=== PATIENT | male | born 1930 | race Caucasian/White ===

== ENCOUNTER 2017-02-09 03:33 | Inpatient (IN) | payer MEDICARE, BC ==
[~2017-02-09] VITALS: Ht 162.6 cm; Wt 711.2 kg
[2017-02-09] VITALS (13 sets, daily range): BP systolic 97–145; BP diastolic 30–76
[~2017-02-09 03:33] MED LIST: ACET500T55 PO; ACET500T68 PO; FLUT9.9S NS; FOLI1TAB6 PO; FURO80TA3 PO; FURO80TA72 PO; LOPE2CAP PO; OMEG1CAP6 PO; OXYC10TA PO; OXYC20TA34 PO; OXYC5TAB PO; OXYM30MI NS; PANT40GR PO; POTA20TA4 PO; SIMV20TA3 PO; SPIR25TA3 PO; TETR15DR14 OP
[2017-02-09] MEDS ORDERED: IV NORMAL SALINE 500ML BAG 500 ML IV ONE (03:45)
[2017-02-09] MEDS ORDERED: PANTOPRAZOLE IV PUSH 40 MG VIAL. IVP ONE (04:00)
[2017-02-09 04:04] LABS: NEG OBC FOB NEG; POS OBC FOB POS
--- NOTE | 2017-02-09 04:23 | PHYS DOC ---
Past Medical History Past Medical History: A-Fib, Arthritis, Hypertension, Other Additional Past Medical Histor: CHRONIC BACK PAIN, GI bleed Past Surgical History: Other Additional Past Surgical Histo: BACK SURGERY Alcohol Use: None Drug Use: None Adult General Chief Complaint Chief Complaint: SYNCOPE HPI HPI Patient is a 86 year old male who presents by EMS from nursing facility for syncope. He notes getting out of bed to have a BM and passing out. Staff helped him up and noted he had a black stool. He feels slight fatigue, but otherwise has no complaints. He denies chest pain, dyspnea, fever or chills, nausea or vomiting, abdominal pain, pain with eating. States he has had prior GI bleeds. Review of Systems Review of Systems Constitutional: Denies fever or chills [] Eyes: Denies change in visual acuity, redness, or eye pain [] HENT: Denies nasal congestion or sore throat [] Respiratory: Denies cough or shortness of breath [] Cardiovascular: No additional information not addressed in HPI [] GI: Denies abdominal pain, nausea, vomiting [] : Denies dysuria or hematuria [] Musculoskeletal: Denies back pain or joint pain [] Integument: Denies rash or skin lesions [] Neurologic: Denies headache, focal weakness or sensory changes [] Endocrine: Denies polyuria or polydipsia [] Current Medications Current Medications Current Medications Medications (Trade) Dose Ordered Sig/Azalia Start Time Stop Time Status Last Admin Dose Admin Pantoprazole Sodium 40 mg 40 mg 1X ONCE 02/09/17 04:00 02/09/17 04:01 DC 02/09/17 03:58 40 MG Pantoprazole Sodium/Sodium Chloride (Protonix Iv/Iv Sodium Chloride 0.9% 100ml) 100 ml @ 10 mls/hr 1X ONCE 02/09/17 05:15 02/09/17 15:14 UNV Sodium Chloride 500 ml @ 500 mls/hr 1X ONCE 02/09/17 03:45 02/09/17 04:44 DC 02/09/17 03:52 500 MLS/HR Allergies Allergies Allergies Coded Allergies Type Severity Reaction Last Updated Verified No Known Drug Allergies 06/10/16 No Physical Exam Physical Exam Constitutional: Well developed, well nourished, no acute distress, non-toxic appearance. [] HENT: Normocephalic, atraumatic, bilateral external ears normal, oropharynx moist, no oral exudates, nose normal. [] Eyes: PERRLA, EOMI. [] Neck: Normal range of motion, no tenderness, supple. [] Cardiovascular:Heart rate regular rhythm [] Lungs & Thorax: Bilateral breath sounds clear to auscultation [] Abdomen: Bowel sounds normal, soft, no tenderness. Black smear on glove per rectum exam. [] Skin: Warm, dry, no erythema, no rash. [] Back: No tenderness, no CVA tenderness. [] Extremities: No tenderness, ROM intact, no edema. [] Neurologic: Alert and oriented to self and situation, normal motor function, normal sensory function, no focal deficits noted. [] Psychologic: Affect normal, judgement normal, mood normal. [] Current Patient Data Vital Signs Vital Signs Date Time Temp Pulse Resp B/P Pulse Ox O2 Delivery O2 Flow Rate FiO2 02/09/17 05:00 108 107/53 97 Room Air 02/09/17 03:36 97.7 16 97.7 Lab Values Laboratory Tests Test 02/09/17 03:50 02/09/17 04:12 Stool Occult Blood Positive (NEG) White Blood Count 18.2x10^3/uL (4.0-11.0) H Red Blood Count 4.27x10^6/uL (4.30-5.70) L Hemoglobin 8.8g/dL (13.0-17.5) L Hematocrit 30.6% (39.0-53.0) L Mean Corpuscular Volume 72fL (79-100) L Mean Corpuscular Hemoglobin 21pg (25-35) L Mean Corpuscular Hemoglobin Concent 29g/dL (31-37) L Red Cell Distribution Width 21.7% (11.5-14.5) H Platelet Count 243x10^3/uL (140-400) Neutrophils (%) (Auto) 87% (31-73) H Lymphocytes (%) (Auto) 4% (24-48) L Monocytes (%) (Auto) 9% (0-9) Eosinophils (%) (Auto) 0% (0-3) Basophils (%) (Auto) 0% (0-3) Neutrophils # (Auto) 15.8x10^3uL (1.8-7.7) H Lymphocytes # (Auto) 0.8x10^3/uL (1.0-4.8) L Monocytes # (Auto) 1.6x10^3/uL (0.0-1.1) H Eosinophils # (Auto) 0.0x10^3/uL (0.0-0.7) Basophils # (Auto) 0.0x10^3/uL (0.0-0.2) Platelet Estimate Pending Prothrombin Time 15.5SEC (11.7-14.0) H Prothrombin Time INR 1.3 (0.8-1.1) H PTT 27SEC (24-38) Sodium Level 145mmol/L (136-145) Potassium Level 3.0mmol/L (3.5-5.1) L Chloride Level 108mmol/L (98-107) H Carbon Dioxide Level 18mmol/L (21-32) L Anion Gap 19 (6-14) H Blood Urea Nitrogen 81mg/dL (8-26) H Creatinine 1.4mg/dL (0.7-1.3) H Estimated GFR (Cockcroft-Gault) 47.9 Glucose Level 144mg/dL (70-99) H Calcium Level 8.8mg/dL (8.5-10.1) Total Bilirubin 0.4mg/dL (0.2-1.0) Direct Bilirubin 0.2mg/dL (0.0-0.2) Aspartate Amino Transferase (AST) 18U/L (15-37) Alanine Aminotransferase (ALT) 16U/L (16-63) Alkaline Phosphatase 54U/L (46-116) Total Protein 6.6g/dL (6.4-8.2) Albumin 3.3g/dL (3.4-5.0) L Laboratory Tests 02/09/17 04:12 Laboratory Tests 02/09/17 04:12 EKG EKG EKG as interpreted by me as sinus tachycardia, rate 112, no ST-T changes, normal intervals, no ectopy Radiology/Procedures Radiology/Procedures Chest xray as interpreted by me with no acute cardiopulmonary disease process Course & Med Decision Making Course & Med Decision Making Pertinent Labs and Imaging studies reviewed. (See chart for details) Workup shows drop in hgb from baseline associated with mild DESTINY and hypokalemia. Discussed case with Dr. Manuel, secondary school teacher librarian for Dr. Cedillo, who recommends admit to ICU with PPI drip and GI consultation. GI consult placed. Potassium IVFs ordered for maintenance and replacement. Dragon Disclaimer Dragon Disclaimer This electronic medical record was generated, in whole or in part, using a voice recognition dictation system. Departure Departure Impression: Primary Impression: GI bleed Additional Impressions: Syncope Peptic ulcer disease Acute renal failure Hypokalemia Disposition: ADMITTED INPATIENT Condition: STABLE Referrals: KASANDRA CEDILLO MD (PCP) Problem Qualifiers Primary Impression: GI bleed GI bleed type/associated pathology: unspecified gastrointestinal hemorrhage type Qualified Code: K92.2 - Gastrointestinal hemorrhage, unspecified Additional Impressions: Syncope Syncope type: unspecified Qualified Code: R55 - Syncope and collapse Pennie HICKEY MD Feb 09, 2017 04:23
[2017-02-09 04:49] LABS: BASO % 0 % (0-3); EOS % 0 % (0-3); HEMATOCRIT 30.6 % (39.0-53.0); HEMOGLOBIN 8.8 g/dL (13.0-17.5); LYMPH # 0.8 x10^3/uL (1.0-4.8); LYMPH % 4 % (24-48); MEAN CORPUSCULAR HEMOGLOBIN 21 pg (25-35); MEAN CORPUSCULAR HGB CONC 29 g/dL (31-37); MEAN CORPUSCULAR VOLUME 72 fL (79-100); MONO % 9 % (0-9); NEUT % 87 % (31-73); PLATELET COUNT 243 x10^3/uL (140-400); RED BLOOD COUNT 4.27 x10^6/uL (4.30-5.70); RED CELL DISTRIBUTION WIDTH 21.7 % (11.5-14.5); WHITE BLOOD COUNT 18.2 x10^3/uL (4.0-11.0)
[2017-02-09 05:00] LABS: INR 1.3 (0.8-1.1); PROTHROMBIN TIME PATIENT 15.5 SEC (11.7-14.0)
[2017-02-09 05:08] LABS: CALCIUM 8.8 mg/dL (8.5-10.1); CREATININE 1.4 mg/dL (0.7-1.3); GFR 47.9
[2017-02-09 05:11] LABS: ALBUMIN 3.3 g/dL (3.4-5.0); DIRECT BILIRUBIN 0.2 mg/dL (0.0-0.2); TOTAL BILIRUBIN 0.4 mg/dL (0.2-1.0); TOTAL PROTEIN 6.6 g/dL (6.4-8.2)
--- NOTE | 2017-02-09 05:42 | ACF ---
Admit Criteria Forms Admit Criteria Forms Admit Criteria Forms GASTROINTESTINAL BLEEDING, LOWER Clinical Indications for Admission to Inpatient Care ( Place 'X' for any and all applicable criteria): Admission is indicated for ANY ONE of the following(1)(2)(3)(4)(5): [X]I. Active gross bleeding per rectum [ ]II. Inpatient admission required rather than observation care (Also use Gastrointestinal Bleeding, Lower: Observation Care as appropriate) because of ANY ONE of the following: [ ]a) Hemodynamic instability that is severe or persistent [ ]b) Anemia requiring inpatient admission as indicated by ALL of the following: [ ]1) Presence of significant clinical finding indicated by ANY ONE of the following: [ ]A. Tachycardia for age [ ]B. Orthostatic vital sign changes [ ]C. Cognitive impairment [ ]D. Heart failure [ ]E. Chest pain [ ]F. Exertional dyspnea [ ]G. Other findings suggesting inadequate perfusion (eg, peripheral or myocardial ischemia, end organ dysfunction) [ ]2) Initial (eg, emergency department, observation care) treatment with transfusion or volume replacement is judged inappropriate (due to severity of the finding) or has been ineffective [ ]c) Severe pain requiring acute inpatient management [ ]d) Absent bowel sounds with complete ileus [ ]e) Signs of intestinal obstruction or peritonitis [A] [ ]f) High-risk low platelet count [ ]g) Severe electrolyte abnormalities requiring inpatient care [ ]h) Acute renal failure [ ]i) High fever or infection requiring inpatient admission as indicated by ANY ONE of the following(8)(9): [ ]1) Appropriate outpatient or observation care antimicrobial treatment unavailable, not effective, or not feasible Documented bacteremia [ ]2) Documented bacteremia [ ]3) Temperature greater than 104.9 degrees F ( 40.5 degrees C) (oral) [ ]4) Temperature greater than 103.1 degrees F ( 39.5 degrees C) (oral) or less than 96.8 degrees F (36 degrees C) (rectal) that does not respond to all emergency treatment measures [ ]j) IV fluid to replace significant ongoing losses ( greater than 3 L/m2 per day) [ ]k) Immediate inpatient surgery needed [ ]l) Parenteral nutrition regimen that must be implemented on inpatient basis [ ]m) Other condition, treatment or monitoring requiring inpatient admission [ ]III. Unstable comorbid illness (renal, hepatic, pulmonary, hematologic, neurologic, or cardiac) [ ]IV. Failure to control bleeding after colonoscopy [ ]V. Coagulopathy [ ]. Suspected or known ischemic colitis(6) [ ]VII. Previous aortic graft placement or known aortic aneurysm Extended stay beyond goal length of stay may be needed for(3)(4)(28): [ ]a) Emergency surgery [ ]b) Coagulation abnormalities(26) [ ]c) Recurrent or persistent bleeding, continued vital sign instability(27)( 28) [ ]d) Active comorbidities (eg, renal insufficiency, heart failure, pre- existing liver disease) The original [employer] content created by [employer] has been revised. The portions of the content which have been revised are identified through the use of italic text or in bold, and [facility] has neither reviewed nor approved the modified material. All other unmodified content is copyright [employer]. Please see references footnoted in the original [employer] edition 2016 NAIF VASQUEZ Feb 09, 2017 05:42
[2017-02-09] MEDS ORDERED: ONDANSETRON PF 4 MG/2 ML VIAL. IV PRN (05:45)
[2017-02-09] MEDS ORDERED: PANTOPRAZOLE SODIUM IV 80 MG in IV NORMAL SALINE 100ML 100 ML IV ONE (05:45)
[2017-02-09] MEDS ORDERED: POTASSIUM CL 20MEQ D5-0.9%NACL 1,000 ML IV ONE (05:45)
[2017-02-09] MEDS ORDERED: ACETAMINOPHEN 325 MG TABLET. PO PRN (05:45)
[2017-02-09] MEDS ORDERED: fentaNYL PF VIAL 100 MCG/2 ML VIAL IV PRN ×2 (05:45→08:30)
--- NOTE | 2017-02-09 05:45 | EKG ---
[facility] [address] [place] [address] Test Date: 2017-02-09 Test Time: 03:38:58 Pat Name: TAL ALICEA Department: Room: 109 1 Gender: M Home Day Care Provider: : [id number] Requested By: Pennie HICKEY Order Number: [id number] Reading MD: Toro Grey Measurements Intervals [place] Rate: 112 P: -107 IA: 102 QRS: -33 QRSD: 82 T: 58 QT: 332 QTc: 455 Interpretive Statements SINUS TACHYCARDIA NON-SPECIFIC ST/T CHANGES Electronically Signed On 02-10-2017 8:19:34 CDT by Toro Grey
--- NOTE | 2017-02-09 07:15 | RAD ---
Portable chest, 02/09/2017: History: Syncope Comparison is made to a study from 06/04/2016. The heart size and pulmonary vascularity are normal. No pulmonary infiltrates are seen. There is no evidence of pleural fluid. IMPRESSION: No acute cardiopulmonary abnormality is detected.
[2017-02-09] MEDS ORDERED: POTASSIUM CHLORIDE 10MEQ 100 ML IV SCH ×2 (09:00→10:29)
[2017-02-09] MEDS ORDERED: POTASSIUM CHLORIDE 20MEQ 50 ML IV PRN ×2 (09:00)
[2017-02-09] MEDS ORDERED: MAGNESIUM SULFATE 2GM 50 ML IV PRN ×2 (09:00)
--- NOTE | 2017-02-09 09:03 | PDOC2 ---
CONSULT Date of Consult Date of Consult DATE: 02/09/17 TIME: 08:53 Reason for Consult Reason for Consult: DESTINY and elyte ABN Referring Physician Referring Physician: Dr Lobo Nuñez Identification/Chief Complaint Chief Complaint syncope Problems: Source Source: Chart review, Patient History of Present Illness Reason for Visit: as dictated Past Medical History Cardiovascular: HTN, Hyperlipidemia, Pulmonary hypertension, Other GI: GERD Heme/Onc: Anemia NOS Musculoskeletal: low back pain, Other Renal/: Urinary Incontinence Past Surgical History Past Surgical History: Other Social History ALCOHOL: none Drugs: None Lives: Roommate Current Problem List Problem List Problems Medical Problems: (1) Acute renal failure Status: Acute (2) GI bleed Status: Acute (3) Hypokalemia Status: Acute (4) Peptic ulcer disease Status: Acute (5) Syncope Status: Acute Current Medications Current Medications Current Medications Pantoprazole Sodium 40 mg 40 mg 1X ONCE IVP Last administered on 02/09/17 03: 58; Start 02/09/17 at 04:00; Stop 02/09/17 at 04:01; Status DC Sodium Chloride 500 ml @ 500 mls/hr 1X ONCE IV Last administered on 03:52; Start 02/09/17 at 03:45; Stop 02/09/17 at 04:44; Status DC Pantoprazole Sodium/Sodium Chloride (Protonix Iv/Iv Sodium Chloride 0.9% 100ml) 100 ml @ 10 mls/hr 1X ONCE IV Last administered on 02/09/17 05:53; Start at 05:45; Stop 02/09/17 at 15:44 Ondansetron HCl (Zofran) 4 mg PRN Q8HRS PRN IV NAUSEA/VOMITING; Start 02/09/17 at 05:45; Stop 02/10/17 at 05:44 Fentanyl Citrate (Fentanyl 2ml Vial) 50 mcg PRN Q2HR PRN IV PAIN; Start at 05:45; Stop 02/10/17 at 05:44 Acetaminophen 650 mg 650 mg PRN Q4HRS PRN PO FEVER; Start 02/09/17 at 05:45; Stop 02/10/17 at 05:44 Potassium Chloride/Dextrose/ Sod Cl 1,000 ml @ 75 mls/hr 1X ONCE IV Last administered on 02/09/17 05:42; Start 02/09/17 at 05:45; Stop 02/09/17 at 08:42 ; Status DC Potassium Chloride/Sodium Chloride (KCl 20 Meq-NS 1,000 ml Iv Soln) 1,000 ml @ 125 mls/hr Q8H IV ; Start 02/09/17 at 09:00 Fentanyl Citrate 50 mcg 50 mcg PRN Q2HR PRN IV PAIN; Start 02/09/17 at 08:30 Potassium Chloride (KCl Premix 10meq) 100 ml @ 100 mls/hr Q1H IV ; Start at 09:00; Stop 02/09/17 at 12:59 Active Scripts Active Mapap (Acetaminophen) 500 Mg Tablet 500 Mg PO PRN Q6HRS PRN Loperamide (Loperamide Hcl) 2 Mg Capsule 2 Mg PO PRN Q15MIN PRN Protonix (Pantoprazole Sodium) 40 Mg Granpkt.dr 40 Mg PO DAILY Reported Flonase Allergy Relief (Fluticasone Propionate) 9.9 Ml [place].susp 2 Sprays NS DAILY Simvastatin 20 Mg Tablet 1 Tab PO QHS Spironolactone 25 Mg Tablet 1 Tab PO DAILY Klor-Con M20 (Potassium Chloride) 20 Meq Tab.er.prt 1 Tab PO BID Fish Oil 1,000 Mg Capsule (Senath-3 Fatty Acids/Fish Oil) 1 Each Capsule 1 Each PO DAILY Centrum Multivitamin Tab Chew (Folic Acid/Mv,Fe,Other Min) 1 Each Tab.chew 1 Each PO DAILY Oxycontin (Oxycodone HCl) 20 Mg Tab.er.12h 1 Tab PO Q12HR Allergies Allergies: Coded Allergies: No Known Drug Allergies (Unverified , 06/10/16) ROS Review of System GEN: no Fevers no Chills + Gen weakness, faituge and orthostasis EYES: no new Visual Complaints ENT: no EN Drainage no Hearing deficiets CVS: n Orthopnea no CP RESP: no SOB no CASTRO GI: no Nausea no Vomiting + Diarrhea : no Dysuria occ Urgency with incontinence HEME: no easy bruising no Palp Ly Nodes NEURO no Focal Weakness no Sz ? Syncope PSYCH: no Suicidal Ideation no Depression SKIN: no Rashes ENDO: no Polyuria or Polydipsia no Hot/Cold Intolerance MU SK: ch Arthraigia no Myalgia Physical Exam Physical Exam General Appearance: Awake Alert Oriented x 3 In no Distress Eyes: VIsion Unchanged Conjunctiva Normal EN: No EN Drainage Mucous Memb. dry Neck: no JVD min JVP Supple no Thyromegaly CVS: S1 S2 ? soft Murmur No Gallop No Rub no Edema - tachy Resp: no Rales no Rhonchi no Acc. Muscle use GI: BAS +ve NO Bruit Non Tender Non Distended : no CVA tenderness; no Suprapubic Tenderness SKIN: no visible Rashes Breast Exam deferred Mu.Sk: Adequate ROM min Muscle Atrophy Heme: Unable to palpate Obvious LAD no palp Splenomegaly NEURO: Good Strength and Tone Cranial Nerves II - XII grossly intact Psych: appears Depressed no Active hallucination Vital Signs Vital Signs Date Time Temp Pulse Resp B/P Pulse Ox O2 Delivery O2 Flow Rate FiO2 02/09/17 07:00 97.3 110 18 107/59 99 Room Air 97.3 Assessment & Plan DESTINY - suspect VMN from possible GI bleed and ongoing diarrhea. IVF as ordered. Current FLuid and E-lyte status does not necessitate emergent need for Dialysis. Will re-evaluate for Dialysis in am Low K - IVF with KCL and K sliding scale; check and correct mag if needed Vol dpeltion due to diarrhe a- IVF as ordered WAG MA - IVF with Bicarb for now, check Lactate (Ketones NA here) ^ed BUN / Creat - ? due to Upper GI BLeed vs all due to diarrhea Microcytic Anemia: defer to GI to eval for blood loss HTN: Current BP meds reviewed. See orders for changes. incontinence - check PVR with bl scan Syncope with Orthostasis - now recent pred use so suspect due to vol depeliton Discussed Plan of Care and prognosis etc. at length with pt Labs Labs Laboratory Tests Test 02/09/17 03:50 02/09/17 04:12 Stool Occult Blood Positive (NEG) White Blood Count 18.2x10^3/uL (4.0-11.0) Red Blood Count 4.27x10^6/uL (4.30-5.70) Hemoglobin 8.8g/dL (13.0-17.5) Hematocrit 30.6% (39.0-53.0) Mean Corpuscular Volume 72fL (79-100) Mean Corpuscular Hemoglobin 21pg (25-35) Mean Corpuscular Hemoglobin Concent 29g/dL (31-37) Red Cell Distribution Width 21.7% (11.5-14.5) Platelet Count 243x10^3/uL (140-400) Neutrophils (%) (Auto) 87% (31-73) Lymphocytes (%) (Auto) 4% (24-48) Monocytes (%) (Auto) 9% (0-9) Eosinophils (%) (Auto) 0% (0-3) Basophils (%) (Auto) 0% (0-3) Neutrophils # (Auto) 15.8x10^3uL (1.8-7.7) Lymphocytes # (Auto) 0.8x10^3/uL (1.0-4.8) Monocytes # (Auto) 1.6x10^3/uL (0.0-1.1) Eosinophils # (Auto) 0.0x10^3/uL (0.0-0.7) Basophils # (Auto) 0.0x10^3/uL (0.0-0.2) Prothrombin Time 15.5SEC (11.7-14.0) Prothromb Time International Ratio 1.3 (0.8-1.1) Activated Partial Thromboplast Time 27SEC (24-38) Sodium Level 145mmol/L (136-145) Potassium Level 3.0mmol/L (3.5-5.1) Chloride Level 108mmol/L (98-107) Carbon Dioxide Level 18mmol/L (21-32) Anion Gap 19 (6-14) Blood Urea Nitrogen 81mg/dL (8-26) Creatinine 1.4mg/dL (0.7-1.3) Estimated GFR (Cockcroft-Gault) 47.9 Glucose Level 144mg/dL (70-99) Calcium Level 8.8mg/dL (8.5-10.1) Total Bilirubin 0.4mg/dL (0.2-1.0) Direct Bilirubin 0.2mg/dL (0.0-0.2) Aspartate Amino Transf (AST/SGOT) 18U/L (15-37) Alanine Aminotransferase (ALT/SGPT) 16U/L (16-63) Alkaline Phosphatase 54U/L (46-116) Total Protein 6.6g/dL (6.4-8.2) Albumin 3.3g/dL (3.4-5.0) Laboratory Tests Test 02/09/17 03:50 02/09/17 04:12 Stool Occult Blood Positive (NEG) White Blood Count 18.2x10^3/uL (4.0-11.0) Red Blood Count 4.27x10^6/uL (4.30-5.70) Hemoglobin 8.8g/dL (13.0-17.5) Hematocrit 30.6% (39.0-53.0) Mean Corpuscular Volume 72fL (79-100) Mean Corpuscular Hemoglobin 21pg (25-35) Mean Corpuscular Hemoglobin Concent 29g/dL (31-37) Red Cell Distribution Width 21.7% (11.5-14.5) Platelet Count 243x10^3/uL (140-400) Neutrophils (%) (Auto) 87% (31-73) Lymphocytes (%) (Auto) 4% (24-48) Monocytes (%) (Auto) 9% (0-9) Eosinophils (%) (Auto) 0% (0-3) Basophils (%) (Auto) 0% (0-3) Neutrophils # (Auto) 15.8x10^3uL (1.8-7.7) Lymphocytes # (Auto) 0.8x10^3/uL (1.0-4.8) Monocytes # (Auto) 1.6x10^3/uL (0.0-1.1) Eosinophils # (Auto) 0.0x10^3/uL (0.0-0.7) Basophils # (Auto) 0.0x10^3/uL (0.0-0.2) Prothrombin Time 15.5SEC (11.7-14.0) Prothromb Time International Ratio 1.3 (0.8-1.1) Activated Partial Thromboplast Time 27SEC (24-38) Sodium Level 145mmol/L (136-145) Potassium Level 3.0mmol/L (3.5-5.1) Chloride Level 108mmol/L (98-107) Carbon Dioxide Level 18mmol/L (21-32) Anion Gap 19 (6-14) Blood Urea Nitrogen 81mg/dL (8-26) Creatinine 1.4mg/dL (0.7-1.3) Estimated GFR (Cockcroft-Gault) 47.9 Glucose Level 144mg/dL (70-99) Calcium Level 8.8mg/dL (8.5-10.1) Total Bilirubin 0.4mg/dL (0.2-1.0) Direct Bilirubin 0.2mg/dL (0.0-0.2) Aspartate Amino Transf (AST/SGOT) 18U/L (15-37) Alanine Aminotransferase (ALT/SGPT) 16U/L (16-63) Alkaline Phosphatase 54U/L (46-116) Total Protein 6.6g/dL (6.4-8.2) Albumin 3.3g/dL (3.4-5.0) ADELA NAZARIO MD Feb 09, 2017 09:03
[2017-02-09 09:15] LABS: PLT ESTIMATE ADEQUATE (ADEQUATE)
[2017-02-09 09:16] LABS: ANISOCYTOSIS PRESENT; HYPOCHROMIA PRESENT; MICROCYTOSIS PRESENT; POIKILOCYTOSIS PRESENT; POLYCHROMASIA PRESENT; SCHISTOCYTES MANY
--- NOTE | 2017-02-09 09:34 | PDOC2 ---
GI CONSULT Reason For Consult: Upper GI Bleed HPI: HPI: 86 y/o male known to Dr. Brock, previously seen for diarrhea. EGD and colonoscopy 05/2016: severe reflux (no Valles's), hiatal hernia, normal stomach (no H. 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 On this occasion, brought to ER from nursing facility for syncope after having a bowel movement. Staff apparently noted black stool, pt confirms this. Again reports diarrhea, unclear frequency, says it's slowing down now. Per RN, no stools since admission. Denies n/v, abd pain, reflux/heartburn, weight loss, decreased appetite, hematochezia. Labs significant for WBC 18.2, Hgb 8.8 w/ low indices and elevated RDW, BUN 81, Cr 1.4, K+ 3, and hemoccult positive stool. Home meds include PPI and loperamide, he denies NSAID use. NPO on PPI drip in ICU. Some tachycardia, a bit hypotensive. By comparison, Hgb has been 11-12 range previously w/ normal BUN/Cr. PMH: PMH: per chart - GERD, diarrhea, diverticulosis, hemorrhoids, cholelithiasis, HLD, HTN, pulmonary hypertension, DVT RLE, varicose veins, anemia, low back pain, allergic rhinitis, urinary incontinence, DDD, lumbar laminectomy w/ fusion, skin cancer FH: Family History: No pertinent hx Social History: ALCOHOL: none Drugs: None ROS: GEN: Denies fevers, chills, sweats HEENT: Denies blurred vision, sore throat CV: Denies chest pain RESP: Denies shortness of air, cough GI: Per HPI : Denies hematuria, dysuria ENDO: Denies weight changes NEURO: +dizziness MSK: Denies weakness, joint pain/swelling SKIN: Denies jaundice, pruritus VItals: Vitals: Vital Signs Date Time Temp Pulse Resp B/P Pulse Ox O2 Delivery O2 Flow Rate FiO2 02/09/17 07:00 97.3 110 18 107/59 99 Room Air 97.3 Labs: Labs: Laboratory Tests Test 02/09/17 03:50 02/09/17 04:12 Stool Occult Blood Positive (NEG) White Blood Count 18.2x10^3/uL (4.0-11.0) Red Blood Count 4.27x10^6/uL (4.30-5.70) Hemoglobin 8.8g/dL (13.0-17.5) Hematocrit 30.6% (39.0-53.0) Mean Corpuscular Volume 72fL (79-100) Mean Corpuscular Hemoglobin 21pg (25-35) Mean Corpuscular Hemoglobin Concent 29g/dL (31-37) Red Cell Distribution Width 21.7% (11.5-14.5) Platelet Count 243x10^3/uL (140-400) Neutrophils (%) (Auto) 87% (31-73) Lymphocytes (%) (Auto) 4% (24-48) Monocytes (%) (Auto) 9% (0-9) Eosinophils (%) (Auto) 0% (0-3) Basophils (%) (Auto) 0% (0-3) Neutrophils # (Auto) 15.8x10^3uL (1.8-7.7) Lymphocytes # (Auto) 0.8x10^3/uL (1.0-4.8) Monocytes # (Auto) 1.6x10^3/uL (0.0-1.1) Eosinophils # (Auto) 0.0x10^3/uL (0.0-0.7) Basophils # (Auto) 0.0x10^3/uL (0.0-0.2) Segmented Neutrophils % 93% (35-66) Band Neutrophils % 4% (0-9) Lymphocytes % 1% (24-48) Monocytes % 2% (0-10) Platelet Estimate Adequate (ADEQUATE) Polychromasia Present Hypochromasia Present Poikilocytosis Present Anisocytosis Present Microcytosis Present Macrocytosis Present Schistocytes Many RBC Morphology Bizarre Forms Present Prothrombin Time 15.5SEC (11.7-14.0) Prothromb Time International Ratio 1.3 (0.8-1.1) Activated Partial Thromboplast Time 27SEC (24-38) Sodium Level 145mmol/L (136-145) Potassium Level 3.0mmol/L (3.5-5.1) Chloride Level 108mmol/L (98-107) Carbon Dioxide Level 18mmol/L (21-32) Anion Gap 19 (6-14) Blood Urea Nitrogen 81mg/dL (8-26) Creatinine 1.4mg/dL (0.7-1.3) Estimated GFR (Cockcroft-Gault) 47.9 Glucose Level 144mg/dL (70-99) Calcium Level 8.8mg/dL (8.5-10.1) Magnesium Level 2.2mg/dL (1.8-2.4) Total Bilirubin 0.4mg/dL (0.2-1.0) Direct Bilirubin 0.2mg/dL (0.0-0.2) Aspartate Amino Transf (AST/SGOT) 18U/L (15-37) Alanine Aminotransferase (ALT/SGPT) 16U/L (16-63) Alkaline Phosphatase 54U/L (46-116) Total Protein 6.6g/dL (6.4-8.2) Albumin 3.3g/dL (3.4-5.0) Allergies: Coded Allergies: No Known Drug Allergies (Unverified , 06/10/16) Medications: Current Medications Medications (Trade) Dose Ordered Sig/Azalia Route PRN Reason Start Time Stop Time Status Last Admin Dose Admin Pantoprazole Sodium 40 mg 40 mg 1X ONCE IVP 02/09/17 04:00 02/09/17 04:01 DC 02/09/17 03:58 Sodium Chloride 500 ml @ 500 mls/hr 1X ONCE IV 02/09/17 03:45 02/09/17 04:44 DC 02/09/17 03:52 Pantoprazole Sodium 80 mg/ Sodium Chloride 100 ml @ 10 mls/hr 1X ONCE IV 02/09/17 05:45 02/09/17 15:44 02/09/17 05:53 Potassium Chloride/Dextrose/ Sod Cl (KCl 20 Meq In D5W-NS) 1,000 ml @ 75 mls/hr 1X ONCE IV 02/09/17 05:45 02/09/17 08:59 DC 02/09/17 05:42 Imaging: Imaging: CXR 02/09/17 IMPRESSION: No acute cardiopulmonary abnormality is detected. PE: GEN: NAD HEENT: Atraumatic, PERRL LUNGS: clear anteriorly HEART: tachycardic ABD: NABS, S/ND/NT EXTREMITY: No edema SKIN: No rashes, no jaundice NEURO/PSYCH: A & O 3 A/P: A/P: ?syncope Microcytic anemia, hemoccult positive stool, dark stools -Hgb 8.8, previously 11-12 range; note elevated BUN -half-way staff and pt report dark stools, none as inpatient GERD -severe reflux on EGD 05/2016 -on PO PPI at nursing facility, drip here Chronic diarrhea -previous EGD and colonoscopy unrevealing for cause -on loperamide DESTINY, hypokalemia -nephrology following -- Agree w/ NPO and PPI. Recent EGD/colonoscopy as above. Will review w/ Dr. Brock. AMADOU ROSE Feb 09, 2017 09:34
[2017-02-09] MEDS ORDERED: POTASSIUM CHLORIDE 20MEQ 50 ML IV SCH (10:00)
--- NOTE | 2017-02-09 10:07 | PDOC ---
Provider Note Provider Note Patient seen. History and Physical dictated. See dictation# [id number]. KASANDRA CEDILLO MD Feb 09, 2017 10:07
[2017-02-09] MEDS: SODIUM BICARBONATE IV SCH ×2 (10:46→21:31)
[2017-02-09] MEDS: STERILE WATER IV SCH ×2 (10:46→21:31)
[2017-02-09] MEDS: POTASSIUM CHLORIDE 10MEQ 100 ML IV SCH ×8 (10:46→22:31)
--- NOTE | 2017-02-09 11:44 | HP ---
ADMIT DATE: 02/09/2017 ADMITTING PHYSICIAN: Dr. Kasandra Nuñez. REASON FOR ADMISSION: Syncope and GI bleeding. HISTORY OF PRESENT ILLNESS: This is an 86-year-old male who is a resident of an assisted living facility, was noted by the staff to have a syncopal episode. He also had a dark stool. Because of it, the patient was brought to the Emergency Room. In the Emergency Room, he was noted to have a WBC count of 18.2 and hemoglobin was lower at 8.8, potassium of 3, BUN was 81 and creatinine 1.4. When I spoke to the patient this morning, he stated that he has been having diarrhea, but denies any bleeding. He denies any nausea or vomiting. He admits to being very weak. He is not a good historian and appears to be somewhat confused and he is not at his baseline mental status at this time. Because of the anemia, GI bleeding, leukocytosis and hypokalemia, the patient has been admitted for further evaluation and management. The patient also is being treated for acute renal failure. The patient was given IV potassium in the ER and also IV Protonix. SYSTEMS REVIEW: As noted in the history of present illness, the patient is not able to give much information. He is somewhat confused. Other systems reviewed and are negative. PAST MEDICAL HISTORY: The patient was last admitted here in 05/2016. He had 2 admissions in May and at that time he was admitted for recurrent diarrhea and he had EGD that showed reflux esophagitis that was quite severe and colonoscopy that was normal other than for hemorrhoids and diverticulosis. He has a history of hypertension, arthritis, physical deconditioning, weakness, kyphosis, gastroesophageal reflux disease, hypertension, anemia, hypokalemia, and history of cardiac arrhythmias. PAST SURGICAL HISTORY: The patient has had back surgery for lumbar spinal stenosis with chronic radiculopathy. 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 MEDICATIONS: I have reviewed the medications. ALLERGIES: None known any. FAMILY HISTORY: Reviewed and noncontributory. SOCIAL HISTORY: No history of smoking, alcoholism or drug abuse. The patient lives in an assisted living facility. PHYSICAL EXAMINATION: VITAL SIGNS: Temperature 97.3, pulse 110 per minute, respirations 18 per minute, blood pressure 107/59 mmHg. GENERAL: The patient is sleepy, but wakes up. He is both acutely and chronically ill. He is somewhat confused, not in any acute distress. SKIN: Warm and dry. Skin is pale. Skin turgor decreased. EYES: Pupils reacting to light. Conjunctivae pale. Sclerae muddy. THROAT: Mild congestion of throat. NECK: JVP normal. No thyromegaly. Trachea midline. LUNGS: Decreased breath sounds at bases. CARDIOVASCULAR: S1, S2 regular. ABDOMEN: Soft, nontender, no guarding, no rigidity. Bowel sounds present. EXTREMITIES: No edema. CENTRAL NERVOUS SYSTEM: Somewhat confused, generalized weakness. Moves extremities. No acute changes noted. LABORATORY FINDINGS: Sodium 145, potassium 3, bicarbonate 18, BUN 81, creatinine 1.4, magnesium 2.2, AST 18, albumin 3.3. WBC count 18.2, hemoglobin 8.8, polys 87, platelet count is 243,000. Stool occult blood is positive. Chest x-ray did not show any infiltrates. IMPRESSION: 1. Acute gastrointestinal bleeding. 2. Acute renal failure with chronic kidney disease. 3. Hypokalemia. The patient has had history of hypokalemia. It may be worse due to diarrhea. 4. Diarrhea. Previous workup has been negative as noted earlier. 5. Leukocytosis. 6. Acute metabolic encephalopathy. 7. Osteoarthritis. 8. History of lumbar spinal stenosis with radiculopathy. 9. Hypertension. 10. History of cardiac arrhythmia. 11. Gastroesophageal reflux disease. 12. Physical deconditioning. PLAN: I will start him on IV Protonix. Consult Dr. Brock for GI evaluation and management, Dr. Beckwith for leukocytosis. Leukocytosis could be reactive. I will also get a urine test. I will give him IV fluids, normal saline with IV potassium as well as put him on potassium protocol. The patient has been admitted to intensive care unit, but if he remains stable, he may be able to move to medical monitor floor. For details, please review the orders. I have also consulted Dr. Annemarie Willis for acute renal failure. KASANDRA NUÑEZ MD DR: KAY/delbert JOB#: [id number] / [id number]
[2017-02-09] MEDS: PANTOPRAZOLE IV PUSH 40 MG VIAL. IVP SCH (21:31)
[2017-02-10] VITALS (8 sets, daily range): BP systolic 100–139; BP diastolic 48–87
--- NOTE | 2017-02-10 01:11 | CONS ---
DATE OF CONSULTATION: PRIMARY PHYSICIAN: Dr. Nuñez. REASON FOR CONSULTATION: Acute renal failure. HISTORY OF PRESENT ILLNESS: The patient is an 86-year-old gentleman from an assisted living facility. He apparently has had diarrhea for the last 3-4 days. Initially, it was all watery. He had become increasingly weak. He thinks he was urinating adequately; however, nursing staff yesterday noticed that he had dark tarry stools after having a BM and was close to passing out. It is unclear if he had total syncope. He was brought by EMS to the ER. In the ER, his blood pressures were 107/53 with heart rate of 108. He is noted to have a slight elevation in his creatinine from 0.6-1.4 with a potassium of 3, bicarbonate of 18, gap of 19 this morning. We were asked to see him for those problems. He denies NSAID use, but he is not sure of all his medications. He denies difficulty urinating or any problems with his prostate per se. His home medications do include spironolactone. He is not sure how long he has been on PPI. PAST MEDICAL HISTORY: Significant for hyperlipidemia, hypertension, chronic diarrhea, urinary incontinence with occasional urgency, arthritis, DJD of his back, skin cancers. Chronic back pain with back surgery. He also has AFib. FAMILY HISTORY: Negative for known kidney problems that the patient admits to at this time. SOCIAL HISTORY: [facility] resident. No alcohol or drug use that he admits to currently. For rest of details, see electronic records. ADELA NAZARIO MD DR: COMFORT/delbert JOB#: [id number] / [id number]
[2017-02-10 04:09] LABS: BILIRUBIN,URINE NEGATIVE (NEG); GLUCOSE,URINE NEGATIVE (NEG); NITRITE,URINE NEGATIVE (NEG); PH,URINE 5.5; PROTEIN,URINE NEGATIVE (NEG-TRACE); UROBILINOGEN,URINE 0.2 mg/dL (0.2 mg/dL)
[2017-02-10 04:15] LABS: BACTERIA,URINE 0 /HPF (0-FEW); RBC,URINE 0 /HPF (0-2); SQUAMOUS EPITHELIAL CELL,UR OCC /LPF
[2017-02-10] MEDS ORDERED: IV RINGERS,LACTATED 1000ML 1,000 ML IV SCH (07:00)
--- NOTE | 2017-02-10 07:03 | PDOC ---
Infectious Disease Note ROS ROS GEN: Denies fevers, chills, sweats HEENT: Denies blurred vision, sore throat CV: Denies chest pain RESP: Denies shortness of air, cough GI: Denies n/v/d NEURO: Denies confusion, dizziness MSK: Denies weakness, joint pain/swelling Vital Sign Vital Signs Vital Signs Date Time Temp Pulse Resp B/P Pulse Ox O2 Delivery O2 Flow Rate FiO2 02/10/17 04:00 99.2 72 16 124/52 98 Room Air 99.2 Physical Exam PHYSICAL EXAM GENERAL: NAD, Alert HEENT: PERRL, OC/OP NECK: Supple, no JVD, no LN LUNGS: Clear HEART: S1S2, no gallop, no murmur ABD: Soft, NT, no organomegaly, no rebound EXT: No edema, no cyanosis WELDING OPERATOR: Alert, oriented x 3, no focal neurologic deficit SKIN: No rash IV: ok Labs Lab Laboratory Tests Test 02/09/17 17:45 02/10/17 00:28 02/10/17 00:55 Potassium Level 3.4mmol/L (3.5-5.1) 3.7mmol/L (3.5-5.1) Urine Collection Type Unknown Urine Color Yellow Urine Clarity Clear Urine pH 5.5 Urine Specific [place] 1.025 Urine Protein Negativemg/dL (NEG-TRACE) Urine Glucose (UA) Negativemg/dL (NEG) Urine Ketones (Stick) Negativemg/dL (NEG) Urine Blood Negative (NEG) Urine Nitrite Negative (NEG) Urine Bilirubin Negative (NEG) Urine Urobilinogen Dipstick 0.2mg/dL (0.2 mg/dL) Urine Leukocyte Esterase Negative (NEG) Urine RBC 0/HPF (0-2) Urine WBC 1-4/HPF (0-4) Urine Squamous Epithelial Cells Occ/LPF Urine Bacteria 0/HPF (0-FEW) Urine Hyaline Casts Few/HPF Urine Mucus Slight/LPF Objective Assessment Leukocytosis ? reactive - SIRS GI bleed DESTINY Chronic diarrhea Plan Plan of Care Holding abx at this point as he appears comfortable/asymptomatic/non tender. 99 degree temps likely from blankets Will f/u WBC/Procalcitonin and if increasing will begin empiric abx check cults Thank you # [id number] RAMIN XIONG MD Feb 10, 2017 07:03
[2017-02-10] MEDS ORDERED: PANTOPRAZOLE IV PUSH 40 MG VIAL. IVP SCH (07:30)
[2017-02-10 07:35] LABS: BASO % 0 % (0-3); EOS % 0 % (0-3); HEMATOCRIT 21.7 % (39.0-53.0); LYMPH # 1.4 x10^3/uL (1.0-4.8); LYMPH % 14 % (24-48); MEAN CORPUSCULAR HEMOGLOBIN 22 pg (25-35); MEAN CORPUSCULAR HGB CONC 31 g/dL (31-37); MEAN CORPUSCULAR VOLUME 69 fL (79-100); MONO % 9 % (0-9); NEUT % 78 % (31-73); PLATELET COUNT 209 x10^3/uL (140-400); RED BLOOD COUNT 3.15 x10^6/uL (4.30-5.70); RED CELL DISTRIBUTION WIDTH 21.8 % (11.5-14.5); WHITE BLOOD COUNT 10.1 x10^3/uL (4.0-11.0)
[2017-02-10] MEDS: STERILE WATER IV SCH (07:39)
[2017-02-10] MEDS: SODIUM BICARBONATE IV SCH (07:39)
[2017-02-10 07:48] LABS: HEMOGLOBIN 6.8 g/dL (13.0-17.5)
[2017-02-10 07:56] LABS: ALBUMIN 2.7 g/dL (3.4-5.0); CALCIUM 8.1 mg/dL (8.5-10.1); CREATININE 0.7 mg/dL (0.7-1.3); GFR 106.7; PHOSPHORUS 2.2 mg/dL (2.6-4.7); POTASSIUM 3.1 mmol/L (3.5-5.1); TOTAL BILIRUBIN 0.3 mg/dL (0.2-1.0); TOTAL PROTEIN 5.4 g/dL (6.4-8.2)
--- NOTE | 2017-02-10 08:07 | PDOC ---
SUBJECTIVE ROS DESTINY feeling better, not further diarrhea reported CVS: no Orthopnea, no CP RESP: no SOB, no CASTRO GI: no Nausea, no Vomiting : no Dysuria, no Urgency OBJECTIVE Vital Signs Vital Signs Date Time Temp Pulse Resp B/P Pulse Ox O2 Delivery O2 Flow Rate FiO2 02/10/17 04:00 99.2 72 16 124/52 98 Room Air 99.2 I & 0 Intake and Output 02/10/17 07:00 Intake Total 3258.89 ml Output Total 1150 ml Balance 2108.89 ml Intake Oral 0 ml IV Total 3258.89 ml Output Urine Total 1150 ml PHYSICAL EXAM Physical Exam General Appearance: Awake Alert Oriented x 3 In no Distress Eyes: VIsion Unchanged Conjunctiva Normal EN: No EN Drainage Mucous Memb. dry Neck: no JVD min JVP Supple no Thyromegaly CVS: S1 S2 ? soft Murmur No Gallop No Rub no Edema - tachy Resp: no Rales no Rhonchi no Acc. Muscle use GI: BAS +ve NO Bruit ? Min Tender Non Distended : no CVA tenderness; no Suprapubic Tenderness Assessment & Plan DESTINY - suspect VMN from possible GI bleed and ongoing diarrhea. IVF as ordered. await todays labs Low K - IVF with KCL and K sliding scale; Vol depletion due to diarrhea - IVF as ordered; UO is better WAG MA - IVF with Bicarb for now, checking Lactate ^ed BUN / Creat - ? due to Upper GI BLeed vs all due to diarrhea Microcytic Anemia: defer to GI to eval for blood loss HTN: Current BP meds reviewed. See orders for changes. incontinence - check PVR with bl scan previous Syncope with Orthostasis - no recent pred use so suspect due to vol depletion COMMENT/RELEVANT DATA Meds Current Medications Medications (Trade) Dose Ordered Sig/Azalia Start Time Stop Time Status Last Admin Dose Admin Acetaminophen 650 mg 650 mg PRN Q4HRS PRN 02/09/17 05:45 02/10/17 05:44 DC Fentanyl Citrate (Fentanyl 2ml Vial) 50 mcg PRN Q2HR PRN 02/09/17 05:45 02/10/17 05:44 DC Fentanyl Citrate 50 mcg 50 mcg PRN Q2HR PRN 02/09/17 08:30 Lactated Ringer's 1,000 ml @ 50 mls/hr Q20H 02/10/17 07:00 02/10/17 18:59 Magnesium Sulfate/ Dextrose 50 ml @ 25 mls/hr PRN DAILY PRN 02/09/17 09:00 Ondansetron HCl (Zofran) 4 mg PRN Q8HRS PRN 02/09/17 05:45 02/10/17 05:44 DC Pantoprazole Sodium 40 mg 40 mg BID 02/09/17 21:00 02/09/17 21:31 40 MG Pantoprazole Sodium/Sodium Chloride (Protonix Iv/Iv Sodium Chloride 0.9% 100ml) 100 ml @ 10 mls/hr 1X ONCE 02/09/17 05:45 02/09/17 10:32 DC 02/09/17 05:53 10 MLS/HR Potassium Chloride/Dextrose/ Sod Cl 1,000 ml @ 75 mls/hr 1X ONCE 02/09/17 05:45 02/09/17 08:59 DC 02/09/17 05:42 75 MLS/HR Potassium Chloride/Sodium Chloride (KCl 20 Meq-NS 1,000 ml Iv Soln) 1,000 ml @ 125 mls/hr Q8H 02/09/17 09:00 02/09/17 09:00 DC Potassium Chloride (KCl Premix 10meq) 100 ml @ 100 mls/hr Q1H 02/09/17 18:45 02/09/17 22:44 DC 02/09/17 22:31 100 MLS/HR Sodium Bicarbonate/ Sterile Water (Water) 1,100 ml @ 100 mls/hr Q11H 02/09/17 10:15 02/10/17 07:41 DC 02/09/17 21:31 100 MLS/HR Sodium Chloride 500 ml @ 500 mls/hr 1X ONCE 02/09/17 03:45 02/09/17 04:44 DC 02/09/17 03:52 500 MLS/HR Lab Laboratory Tests Test 02/09/17 17:45 02/10/17 00:28 02/10/17 00:55 02/10/17 07:05 Potassium Level 3.4mmol/L (3.5-5.1) 3.7mmol/L (3.5-5.1) Urine Collection Type Unknown Urine Color Yellow Urine Clarity Clear Urine pH 5.5 Urine Specific [place] 1.025 Urine Protein Negativemg/dL (NEG-TRACE) Urine Glucose (UA) Negativemg/dL (NEG) Urine Ketones (Stick) Negativemg/dL (NEG) Urine Blood Negative (NEG) Urine Nitrite Negative (NEG) Urine Bilirubin Negative (NEG) Urine Urobilinogen Dipstick 0.2mg/dL (0.2 mg/dL) Urine Leukocyte Esterase Negative (NEG) Urine RBC 0/HPF (0-2) Urine WBC 1-4/HPF (0-4) Urine Squamous Epithelial Cells Occ/LPF Urine Bacteria 0/HPF (0-FEW) Urine Hyaline Casts Few/HPF Urine Mucus Slight/LPF White Blood Count 10.1x10^3/uL (4.0-11.0) Red Blood Count 3.15x10^6/uL (4.30-5.70) Hemoglobin 6.8g/dL (13.0-17.5) Hematocrit 21.7% (39.0-53.0) Mean Corpuscular Volume 69fL (79-100) Mean Corpuscular Hemoglobin 22pg (25-35) Mean Corpuscular Hemoglobin Concent 31g/dL (31-37) Red Cell Distribution Width 21.8% (11.5-14.5) Platelet Count 209x10^3/uL (140-400) Neutrophils (%) (Auto) 78% (31-73) Lymphocytes (%) (Auto) 14% (24-48) Monocytes (%) (Auto) 9% (0-9) Eosinophils (%) (Auto) 0% (0-3) Basophils (%) (Auto) 0% (0-3) Neutrophils # (Auto) 7.8x10^3uL (1.8-7.7) Lymphocytes # (Auto) 1.4x10^3/uL (1.0-4.8) Monocytes # (Auto) 0.9x10^3/uL (0.0-1.1) Eosinophils # (Auto) 0.0x10^3/uL (0.0-0.7) Basophils # (Auto) 0.0x10^3/uL (0.0-0.2) ADELA NAZARIO MD Feb 10, 2017 08:07
[2017-02-10] MEDS: POTASSIUM CHLORIDE 10MEQ 100 ML IV SCH ×4 (09:00→12:00)
--- NOTE | 2017-02-10 10:56 | PDOC ---
IM PROGRESS NOTES- Subjective Subjective No diarrhea,abdominal pain,dyspnea.still weak.Unable to do full systems review. Objective Vitals Vital Signs Date Time Temp Pulse Resp B/P Pulse Ox O2 Delivery O2 Flow Rate FiO2 02/10/17 04:00 99.2 72 16 124/52 98 Room Air 99.2 Input & Output Intake and Output 02/10/17 07:00 Intake Total 3258.89 ml Output Total 1150 ml Balance 2108.89 ml Intake Oral 0 ml IV Total 3258.89 ml Output Urine Total 1150 ml Physical Exam Physical Exam General appearance - alert,ill appearing, and in no distress Mental Status - alert, oriented to person, place, and time, affect appropriate to mood Head - normal Chest - clear to auscultation, no wheezes, rales or rhonchi, symmetric air entry Heart - S1 and S2 normal Abdomen - soft, nontender, nondistended, no masses or organomegaly Neurological - alert and oriented,weak Musculoskeletal - no muscular tenderness noted Extremities - no pedal edema Skin - warm and dry Labs Laboratory Tests Test 02/09/17 03:50 02/09/17 04:12 02/09/17 06:45 02/09/17 17:45 Stool Occult Blood Positive (NEG) White Blood Count 18.2x10^3/uL (4.0-11.0) Red Blood Count 4.27x10^6/uL (4.30-5.70) Hemoglobin 8.8g/dL (13.0-17.5) Hematocrit 30.6% (39.0-53.0) Mean Corpuscular Volume 72fL (79-100) Mean Corpuscular Hemoglobin 21pg (25-35) Mean Corpuscular Hemoglobin Concent 29g/dL (31-37) Red Cell Distribution Width 21.7% (11.5-14.5) Platelet Count 243x10^3/uL (140-400) Neutrophils (%) (Auto) 87% (31-73) Lymphocytes (%) (Auto) 4% (24-48) Monocytes (%) (Auto) 9% (0-9) Eosinophils (%) (Auto) 0% (0-3) Basophils (%) (Auto) 0% (0-3) Neutrophils # (Auto) 15.8x10^3uL (1.8-7.7) Lymphocytes # (Auto) 0.8x10^3/uL (1.0-4.8) Monocytes # (Auto) 1.6x10^3/uL (0.0-1.1) Eosinophils # (Auto) 0.0x10^3/uL (0.0-0.7) Basophils # (Auto) 0.0x10^3/uL (0.0-0.2) Segmented Neutrophils % 93% (35-66) Band Neutrophils % 4% (0-9) Lymphocytes % 1% (24-48) Monocytes % 2% (0-10) Platelet Estimate Adequate (ADEQUATE) Polychromasia Present Hypochromasia Present Poikilocytosis Present Anisocytosis Present Microcytosis Present Macrocytosis Present Schistocytes Many RBC Morphology Bizarre Forms Present Prothrombin Time 15.5SEC (11.7-14.0) Prothromb Time International Ratio 1.3 (0.8-1.1) Activated Partial Thromboplast Time 27SEC (24-38) Sodium Level 145mmol/L (136-145) Potassium Level 3.0mmol/L (3.5-5.1) 3.4mmol/L (3.5-5.1) Chloride Level 108mmol/L (98-107) Carbon Dioxide Level 18mmol/L (21-32) Anion Gap 19 (6-14) Blood Urea Nitrogen 81mg/dL (8-26) Creatinine 1.4mg/dL (0.7-1.3) Estimated GFR (Cockcroft-Gault) 47.9 Glucose Level 144mg/dL (70-99) Calcium Level 8.8mg/dL (8.5-10.1) Magnesium Level 2.2mg/dL (1.8-2.4) Total Bilirubin 0.4mg/dL (0.2-1.0) Direct Bilirubin 0.2mg/dL (0.0-0.2) Aspartate Amino Transf (AST/SGOT) 18U/L (15-37) Alanine Aminotransferase (ALT/SGPT) 16U/L (16-63) Alkaline Phosphatase 54U/L (46-116) Total Protein 6.6g/dL (6.4-8.2) Albumin 3.3g/dL (3.4-5.0) Nasal Screen MRSA (PCR) Negative (Negative) Test 02/10/17 00:28 02/10/17 00:55 02/10/17 07:05 Potassium Level 3.7mmol/L (3.5-5.1) 3.1mmol/L (3.5-5.1) Procalcitonin 0.27ng/mL (0.00-0.10) Urine Collection Type Unknown Urine Color Yellow Urine Clarity Clear Urine pH 5.5 Urine Specific [place] 1.025 Urine Protein Negativemg/dL (NEG-TRACE) Urine Glucose (UA) Negativemg/dL (NEG) Urine Ketones (Stick) Negativemg/dL (NEG) Urine Blood Negative (NEG) Urine Nitrite Negative (NEG) Urine Bilirubin Negative (NEG) Urine Urobilinogen Dipstick 0.2mg/dL (0.2 mg/dL) Urine Leukocyte Esterase Negative (NEG) Urine RBC 0/HPF (0-2) Urine WBC 1-4/HPF (0-4) Urine Squamous Epithelial Cells Occ/LPF Urine Bacteria 0/HPF (0-FEW) Urine Hyaline Casts Few/HPF Urine Mucus Slight/LPF White Blood Count 10.1x10^3/uL (4.0-11.0) Red Blood Count 3.15x10^6/uL (4.30-5.70) Hemoglobin 6.8g/dL (13.0-17.5) Hematocrit 21.7% (39.0-53.0) Mean Corpuscular Volume 69fL (79-100) Mean Corpuscular Hemoglobin 22pg (25-35) Mean Corpuscular Hemoglobin Concent 31g/dL (31-37) Red Cell Distribution Width 21.8% (11.5-14.5) Platelet Count 209x10^3/uL (140-400) Neutrophils (%) (Auto) 78% (31-73) Lymphocytes (%) (Auto) 14% (24-48) Monocytes (%) (Auto) 9% (0-9) Eosinophils (%) (Auto) 0% (0-3) Basophils (%) (Auto) 0% (0-3) Neutrophils # (Auto) 7.8x10^3uL (1.8-7.7) Lymphocytes # (Auto) 1.4x10^3/uL (1.0-4.8) Monocytes # (Auto) 0.9x10^3/uL (0.0-1.1) Eosinophils # (Auto) 0.0x10^3/uL (0.0-0.7) Basophils # (Auto) 0.0x10^3/uL (0.0-0.2) Sodium Level 143mmol/L (136-145) Chloride Level 109mmol/L (98-107) Carbon Dioxide Level 28mmol/L (21-32) Anion Gap 6 (6-14) Blood Urea Nitrogen 37mg/dL (8-26) Creatinine 0.7mg/dL (0.7-1.3) Estimated GFR (Cockcroft-Gault) 106.7 BUN/Creatinine Ratio 53 (6-20) Glucose Level 101mg/dL (70-99) Lactic Acid Level 1.4mmol/L (0.4-2.0) Calcium Level 8.1mg/dL (8.5-10.1) Phosphorus Level 2.2mg/dL (2.6-4.7) Magnesium Level 2.0mg/dL (1.8-2.4) Total Bilirubin 0.3mg/dL (0.2-1.0) Aspartate Amino Transf (AST/SGOT) 14U/L (15-37) Alanine Aminotransferase (ALT/SGPT) 13U/L (16-63) Alkaline Phosphatase 49U/L (46-116) Total Protein 5.4g/dL (6.4-8.2) Albumin 2.7g/dL (3.4-5.0) Albumin/Globulin Ratio 1.0 (1.0-1.7) Laboratory Tests Test 02/09/17 17:45 02/10/17 00:28 02/10/17 00:55 02/10/17 07:05 Potassium Level 3.4mmol/L (3.5-5.1) 3.7mmol/L (3.5-5.1) 3.1mmol/L (3.5-5.1) Procalcitonin 0.27ng/mL (0.00-0.10) Urine Collection Type Unknown Urine Color Yellow Urine Clarity Clear Urine pH 5.5 Urine Specific [place] 1.025 Urine Protein Negativemg/dL (NEG-TRACE) Urine Glucose (UA) Negativemg/dL (NEG) Urine Ketones (Stick) Negativemg/dL (NEG) Urine Blood Negative (NEG) Urine Nitrite Negative (NEG) Urine Bilirubin Negative (NEG) Urine Urobilinogen Dipstick 0.2mg/dL (0.2 mg/dL) Urine Leukocyte Esterase Negative (NEG) Urine RBC 0/HPF (0-2) Urine WBC 1-4/HPF (0-4) Urine Squamous Epithelial Cells Occ/LPF Urine Bacteria 0/HPF (0-FEW) Urine Hyaline Casts Few/HPF Urine Mucus Slight/LPF White Blood Count 10.1x10^3/uL (4.0-11.0) Red Blood Count 3.15x10^6/uL (4.30-5.70) Hemoglobin 6.8g/dL (13.0-17.5) Hematocrit 21.7% (39.0-53.0) Mean Corpuscular Volume 69fL (79-100) Mean Corpuscular Hemoglobin 22pg (25-35) Mean Corpuscular Hemoglobin Concent 31g/dL (31-37) Red Cell Distribution Width 21.8% (11.5-14.5) Platelet Count 209x10^3/uL (140-400) Neutrophils (%) (Auto) 78% (31-73) Lymphocytes (%) (Auto) 14% (24-48) Monocytes (%) (Auto) 9% (0-9) Eosinophils (%) (Auto) 0% (0-3) Basophils (%) (Auto) 0% (0-3) Neutrophils # (Auto) 7.8x10^3uL (1.8-7.7) Lymphocytes # (Auto) 1.4x10^3/uL (1.0-4.8) Monocytes # (Auto) 0.9x10^3/uL (0.0-1.1) Eosinophils # (Auto) 0.0x10^3/uL (0.0-0.7) Basophils # (Auto) 0.0x10^3/uL (0.0-0.2) Sodium Level 143mmol/L (136-145) Chloride Level 109mmol/L (98-107) Carbon Dioxide Level 28mmol/L (21-32) Anion Gap 6 (6-14) Blood Urea Nitrogen 37mg/dL (8-26) Creatinine 0.7mg/dL (0.7-1.3) Estimated GFR (Cockcroft-Gault) 106.7 BUN/Creatinine Ratio 53 (6-20) Glucose Level 101mg/dL (70-99) Lactic Acid Level 1.4mmol/L (0.4-2.0) Calcium Level 8.1mg/dL (8.5-10.1) Phosphorus Level 2.2mg/dL (2.6-4.7) Magnesium Level 2.0mg/dL (1.8-2.4) Total Bilirubin 0.3mg/dL (0.2-1.0) Aspartate Amino Transf (AST/SGOT) 14U/L (15-37) Alanine Aminotransferase (ALT/SGPT) 13U/L (16-63) Alkaline Phosphatase 49U/L (46-116) Total Protein 5.4g/dL (6.4-8.2) Albumin 2.7g/dL (3.4-5.0) Albumin/Globulin Ratio 1.0 (1.0-1.7) Meds Current Medications Lactated Ringer's 1,000 ml @ 50 mls/hr Q20H IV ; Start 02/10/17 at 07:00; Stop 02/10/17 at 18:59 Pantoprazole Sodium 40 mg 40 mg BID IVP Last administered on 02/09/17 21:31; Start 02/09/17 at 21:00 Pantoprazole Sodium 40 mg 40 mg DAILYAC IVP ; Start 02/10/17 at 07:30; Stop at 07:30; Status DC Potassium Chloride 100 ml @ 100 mls/hr Q1H IV Last administered on 02/09/17 22:31; Start 02/09/17 at 18:45; Stop 02/09/17 at 22:44; Status DC Potassium Chloride (KCl Premix 10meq) 100 ml @ 100 mls/hr Q1H IV Last administered on 02/09/17 15:02; Start 02/09/17 at 11:00; Stop 02/09/17 at 14:59 ; Status DC Potassium Chloride (KCl Premix 10meq) 100 ml @ 100 mls/hr Q1H IV ; Start at 09:00; Stop 02/10/17 at 12:59 Assessment Assessment 1. Acute gastrointestinal bleeding. 2. Acute renal failure with chronic kidney disease. 3. Hypokalemia. The patient has had history of hypokalemia. It may be worse due to diarrhea. 4. Diarrhea. Previous workup has been negative as noted earlier. 5. Leukocytosis. 6. Acute metabolic encephalopathy. 7. Osteoarthritis. 8. History of lumbar spinal stenosis with radiculopathy. 9. Hypertension. 10. History of cardiac arrhythmia. 11. Gastroesophageal reflux disease. 12. Physical deconditioning. PLAN: I will start him on IV Protonix. Consult Dr. Brock for GI evaluation and management, Dr. Beckwith for leukocytosis. Leukocytosis could be reactive. I will also get a urine test. I will give him IV fluids, normal saline with IV potassium as well as put him on potassium protocol. The patient has been admitted to intensive care unit, but if he remains stable, he may be able to move to medical monitor floor. For details, please review the orders. I have also consulted Dr. Annemarie Willis for acute renal failure. Acute blood loss anemia- also dilutional- Hb 6.8 -transfuse 2 units PRBCs. Hypokalemia- 3.1- replace. Acute renal failure- improving. Acute metabolic encephalopathy. Hypophosphatemia- replace. Leukocytosis- improving 18.1-10k,Procalcitonin 0.27 slightly elevated. Condition, treatment, options were extensively discussed with the patient and his family. Plan Plan For more details regarding further plans, please refer to the orders. KASANDRA CEDILLO MD Feb 10, 2017 10:56
[2017-02-10] MEDS: PANTOPRAZOLE IV PUSH 40 MG VIAL. IVP SCH ×2 (13:26→20:58)
[2017-02-10] MEDS: IV RINGERS,LACTATED 1000ML 1,000 ML IV SCH ×2 (14:19→22:19)
[2017-02-10] MEDS ORDERED: fentaNYL PF VIAL 100 MCG/2 ML VIAL IV PRN ×2 (14:30)
[2017-02-10] MEDS ORDERED: MIDAZOLAM HCL/PF 2 MG/2 ML VIAL. IV PRN (14:30)
[2017-02-10] MEDS ORDERED: LIDOCAINE 1% 1 ML SYRINGE. ID PRN (14:30)
[2017-02-10] MEDS ORDERED: PROPOFOL 20 ML IV ONE (15:35)
[2017-02-10] MEDS ORDERED: LIDOCAINE 2% PF Vial for OR 5 ML VIAL. ONE (15:35)
--- NOTE | 2017-02-10 15:57 | PDOC4 ---
PROCEDURE Procedure EGD Ind: melena/anemia Meds: per anesthesia. E-exudative esophagitis throughout. Multiple petechiae. G-small HH D-Normal to second portion. Camille. well. IMP: severe esophagitis, similar to last time. Was taking PPI at home?? small HH REC: clears PPI, po when eating and chronic. MAURICE ZAPATA MD Feb 10, 2017 15:57
[2017-02-10] MEDS: NORMAL SALINE IV SCH ×3 (18:08→22:13)
[2017-02-10] MEDS: POTASSIUM PHOSPHATE DIBASIC IV SCH ×3 (18:08→22:13)
[2017-02-10 21:20] LABS: HEMATOCRIT 28.3 % (39.0-53.0); HEMOGLOBIN 8.9 g/dL (13.0-17.5); RED BLOOD COUNT 3.68 x10^6/uL (4.30-5.70); RED CELL DISTRIBUTION WIDTH 26.6 % (11.5-14.5); WHITE BLOOD COUNT 6.5 x10^3/uL (4.0-11.0)
[2017-02-11 03:00] VITALS: BP 119/65
[2017-02-11 04:36] LABS: BASO % 0 % (0-3); EOS % 0 % (0-3); HEMATOCRIT 27.9 % (39.0-53.0); HEMOGLOBIN 8.7 g/dL (13.0-17.5); LYMPH # 1.1 x10^3/uL (1.0-4.8); LYMPH % 17 % (24-48); MEAN CORPUSCULAR HEMOGLOBIN 24 pg (25-35); MEAN CORPUSCULAR HGB CONC 31 g/dL (31-37); MEAN CORPUSCULAR VOLUME 77 fL (79-100); MONO % 12 % (0-9); NEUT % 70 % (31-73); PLATELET COUNT 160 x10^3/uL (140-400); RED BLOOD COUNT 3.64 x10^6/uL (4.30-5.70); RED CELL DISTRIBUTION WIDTH 26.7 % (11.5-14.5); WHITE BLOOD COUNT 6.3 x10^3/uL (4.0-11.0)
[2017-02-11 05:06] LABS: ALBUMIN 2.5 g/dL (3.4-5.0); CALCIUM 7.4 mg/dL (8.5-10.1); CREATININE 0.7 mg/dL (0.7-1.3); GFR 106.7; TOTAL BILIRUBIN 0.6 mg/dL (0.2-1.0); TOTAL PROTEIN 5.1 g/dL (6.4-8.2)
[2017-02-11 05:16] LABS: POTASSIUM 2.9 mmol/L (3.5-5.1)
[2017-02-11] MEDS: POTASSIUM CHLORIDE 10MEQ 100 ML IV SCH ×6 (05:44→22:58)
--- NOTE | 2017-02-11 06:43 | CONS ---
DATE OF CONSULTATION: 02/10/2017 PATIENT'S ROOM: ICU 9. REQUESTING PHYSICIAN: Dr. Nuñez. REASON FOR CONSULTATION: Leukocytosis. HISTORY OF PRESENT ILLNESS: The patient is an 86-year-old gentleman with a history of chronic diarrhea, who [facility]. He began to have loose stools, he states, several days ago, but then was noted by the assisted facility nursing staff to have a dark stool and also he suffered a syncopal episode. He was brought to the Emergency Room at [facility], was found to have a white blood cell count of 18.2. His hemoglobin was 8.8. His BUN was 81 and creatinine was 1.4. Potassium was 3. He was admitted emergently to the Intensive Care Unit. I was consulted secondary to leukocytosis. I did review the patient's chart yesterday and withheld any antibiotics. Currently, the patient states he is feeling better since his admission. Denied any fevers or chills or sweats prior to coming in. He has no headaches, sinus, sore throat, cough or chest pain. Denies any dysuria, frequency or urgency. He is uncertain if he actually fell or not and he denies any abdominal pain or bloating or cramps. PAST MEDICAL HISTORY: Positive for recurrent diarrhea. He has had reflux esophagitis, hypertension, arthritis, kyphosis, gastroesophageal reflux disease, hypertension, anemia, hypokalemia, cardiac arrhythmias, acute kidney injury. PAST SURGICAL HISTORY: He has had previous EGDs, colonoscopies. He has had lumbar spinal stenosis surgery and history of an aneurysm. REVIEW OF SYSTEMS: Otherwise negative except for as mentioned above. ALLERGIES: No known drug allergies. SOCIAL HISTORY: No tobacco or alcohol. Lives in assisted living. FAMILY HISTORY: Noncontributory. CURRENT MEDICATIONS: Include electrolyte replacement, pantoprazole, Tylenol. Other meds are available, have been reviewed in the chart. PHYSICAL EXAMINATION: VITAL SIGNS: T-max has been 99.4, currently 99.2, pulse 72, respirations 16, blood pressure 124/52, satting 98% on room air. CONSTITUTIONAL: He is lying in bed. He is cooperative. He is in no acute distress. Does look a little pale. HEENT: Normal conjunctivae. Pupils are equal and reactive. Oral cavity, pharynx was clear. NECK: Supple, with no JVD. LUNGS: Decreased in the bases. HEART: S1, S2. ABDOMEN: Soft, nontender, nondistended, no guarding, no rebound. EXTREMITIES: No clubbing, cyanosis. No gross edema. SKIN: Warm to touch without signs of rash. NEUROLOGIC: He moves all extremities, but is slow to respond to questions. PSYCHIATRIC: Affect was somewhat flat. LABORATORY DATA: From the time of admission as today's are not available show white count 18.2, hemoglobin 8.8, platelets of 243 with 87% neutrophils. The most recent potassium just after midnight is 3.7. His creatinine was 1.4 at the time of admission. Glucose was ____. He had normal liver function study tests. Urinalysis is clean. MRSA screen is negative. Chest x-ray, no acute pulmonary abnormality was seen. IMPRESSION: 1. Leukocytosis, questionable reactive and systemic inflammatory response syndrome. 2. Gastrointestinal bleed. 3. Acute kidney injury. 4. Chronic diarrhea. RECOMMENDATIONS: For now, we are holding antibiotics. I did review the chart yesterday. Currently, he appears comfortable, asymptomatic. He is nontender. He has 99 degree temp, is likely from a number of different blankets in place. We will follow up his white blood cell count and procalcitonin and if he is increasing, then we will begin empiric antibiotics, check cultures. Dr. Nuñez, thank you for allowing me to participate in this patient's care. If you have any questions, please do not hesitate to contact me. RAMIN XIONG MD DR: JUNIOR/delbert JOB#: [id number] / [id number]
[2017-02-11] MEDS: PANTOPRAZOLE IV PUSH 40 MG VIAL. IVP SCH (07:06)
[2017-02-11 08:00] VITALS: BP 115/59
--- NOTE | 2017-02-11 09:34 | PDOC ---
IM PROGRESS NOTES- Subjective Subjective No diarrhea,abdominal pain,dyspnea.still weak.Unable to do full systems review. Objective Vitals Vital Signs Date Time Temp Pulse Resp B/P Pulse Ox O2 Delivery O2 Flow Rate FiO2 02/11/17 08:00 98.8 99 20 115/59 98 Room Air 98.8 Input & Output Intake and Output 02/11/17 07:00 Intake Total 1850 ml Output Total 700 ml Balance 1150 ml Intake Oral 520 ml IV Total 600 ml Blood Product IV Normal Saline Flush 730 ml Output Urine Total 700 ml # Voids 1 # Bowel Movements 1 Physical Exam Physical Exam General appearance - alert,ill appearing, and in no distress Mental Status - alert, oriented to person, place, and time, affect appropriate to mood Head - normal Chest - clear to auscultation, no wheezes, rales or rhonchi, symmetric air entry Heart - S1 and S2 normal Abdomen - soft, nontender, nondistended, no masses or organomegaly Neurological - alert and oriented,weak Musculoskeletal - no muscular tenderness noted Extremities - no pedal edema Skin - warm and dry Labs Laboratory Tests Test 02/09/17 17:45 02/10/17 00:28 02/10/17 00:55 02/10/17 07:05 Potassium Level 3.4mmol/L (3.5-5.1) 3.7mmol/L (3.5-5.1) 3.1mmol/L (3.5-5.1) Procalcitonin 0.27ng/mL (0.00-0.10) Urine Collection Type Unknown Urine Color Yellow Urine Clarity Clear Urine pH 5.5 Urine Specific [place] 1.025 Urine Protein Negativemg/dL (NEG-TRACE) Urine Glucose (UA) Negativemg/dL (NEG) Urine Ketones (Stick) Negativemg/dL (NEG) Urine Blood Negative (NEG) Urine Nitrite Negative (NEG) Urine Bilirubin Negative (NEG) Urine Urobilinogen Dipstick 0.2mg/dL (0.2 mg/dL) Urine Leukocyte Esterase Negative (NEG) Urine RBC 0/HPF (0-2) Urine WBC 1-4/HPF (0-4) Urine Squamous Epithelial Cells Occ/LPF Urine Bacteria 0/HPF (0-FEW) Urine Hyaline Casts Few/HPF Urine Mucus Slight/LPF White Blood Count 10.1x10^3/uL (4.0-11.0) Red Blood Count 3.15x10^6/uL (4.30-5.70) Hemoglobin 6.8g/dL (13.0-17.5) Hematocrit 21.7% (39.0-53.0) Mean Corpuscular Volume 69fL (79-100) Mean Corpuscular Hemoglobin 22pg (25-35) Mean Corpuscular Hemoglobin Concent 31g/dL (31-37) Red Cell Distribution Width 21.8% (11.5-14.5) Platelet Count 209x10^3/uL (140-400) Neutrophils (%) (Auto) 78% (31-73) Lymphocytes (%) (Auto) 14% (24-48) Monocytes (%) (Auto) 9% (0-9) Eosinophils (%) (Auto) 0% (0-3) Basophils (%) (Auto) 0% (0-3) Neutrophils # (Auto) 7.8x10^3uL (1.8-7.7) Lymphocytes # (Auto) 1.4x10^3/uL (1.0-4.8) Monocytes # (Auto) 0.9x10^3/uL (0.0-1.1) Eosinophils # (Auto) 0.0x10^3/uL (0.0-0.7) Basophils # (Auto) 0.0x10^3/uL (0.0-0.2) Sodium Level 143mmol/L (136-145) Chloride Level 109mmol/L (98-107) Carbon Dioxide Level 28mmol/L (21-32) Anion Gap 6 (6-14) Blood Urea Nitrogen 37mg/dL (8-26) Creatinine 0.7mg/dL (0.7-1.3) Estimated GFR (Cockcroft-Gault) 106.7 BUN/Creatinine Ratio 53 (6-20) Glucose Level 101mg/dL (70-99) Lactic Acid Level 1.4mmol/L (0.4-2.0) Calcium Level 8.1mg/dL (8.5-10.1) Phosphorus Level 2.2mg/dL (2.6-4.7) Magnesium Level 2.0mg/dL (1.8-2.4) Total Bilirubin 0.3mg/dL (0.2-1.0) Aspartate Amino Transf (AST/SGOT) 14U/L (15-37) Alanine Aminotransferase (ALT/SGPT) 13U/L (16-63) Alkaline Phosphatase 49U/L (46-116) Total Protein 5.4g/dL (6.4-8.2) Albumin 2.7g/dL (3.4-5.0) Albumin/Globulin Ratio 1.0 (1.0-1.7) Test 02/10/17 19:30 02/11/17 04:00 White Blood Count 6.5x10^3/uL (4.0-11.0) 6.3x10^3/uL (4.0-11.0) Red Blood Count 3.68x10^6/uL (4.30-5.70) 3.64x10^6/uL (4.30-5.70) Hemoglobin 8.9g/dL (13.0-17.5) 8.7g/dL (13.0-17.5) Hematocrit 28.3% (39.0-53.0) 27.9% (39.0-53.0) Mean Corpuscular Volume 77fL (79-100) 77fL (79-100) Mean Corpuscular Hemoglobin 24pg (25-35) 24pg (25-35) Mean Corpuscular Hemoglobin Concent 32g/dL (31-37) 31g/dL (31-37) Red Cell Distribution Width 26.6% (11.5-14.5) 26.7% (11.5-14.5) Platelet Count 164x10^3/uL (140-400) 160x10^3/uL (140-400) Neutrophils (%) (Auto) 70% (31-73) Lymphocytes (%) (Auto) 17% (24-48) Monocytes (%) (Auto) 12% (0-9) Eosinophils (%) (Auto) 0% (0-3) Basophils (%) (Auto) 0% (0-3) Neutrophils # (Auto) 4.4x10^3uL (1.8-7.7) Lymphocytes # (Auto) 1.1x10^3/uL (1.0-4.8) Monocytes # (Auto) 0.7x10^3/uL (0.0-1.1) Eosinophils # (Auto) 0.0x10^3/uL (0.0-0.7) Basophils # (Auto) 0.0x10^3/uL (0.0-0.2) Sodium Level 146mmol/L (136-145) Potassium Level 2.9mmol/L (3.5-5.1) Chloride Level 112mmol/L (98-107) Carbon Dioxide Level 27mmol/L (21-32) Anion Gap 7 (6-14) Blood Urea Nitrogen 19mg/dL (8-26) Creatinine 0.7mg/dL (0.7-1.3) Estimated GFR (Cockcroft-Gault) 106.7 BUN/Creatinine Ratio 27 (6-20) Glucose Level 90mg/dL (70-99) Lactic Acid Level 1.0mmol/L (0.4-2.0) Calcium Level 7.4mg/dL (8.5-10.1) Phosphorus Level 3.7mg/dL (2.6-4.7) Magnesium Level 1.8mg/dL (1.8-2.4) Total Bilirubin 0.6mg/dL (0.2-1.0) Aspartate Amino Transf (AST/SGOT) 17U/L (15-37) Alanine Aminotransferase (ALT/SGPT) 17U/L (16-63) Alkaline Phosphatase 51U/L (46-116) Total Protein 5.1g/dL (6.4-8.2) Albumin 2.5g/dL (3.4-5.0) Albumin/Globulin Ratio 1.0 (1.0-1.7) Laboratory Tests Test 02/10/17 19:30 02/11/17 04:00 White Blood Count 6.5x10^3/uL (4.0-11.0) 6.3x10^3/uL (4.0-11.0) Red Blood Count 3.68x10^6/uL (4.30-5.70) 3.64x10^6/uL (4.30-5.70) Hemoglobin 8.9g/dL (13.0-17.5) 8.7g/dL (13.0-17.5) Hematocrit 28.3% (39.0-53.0) 27.9% (39.0-53.0) Mean Corpuscular Volume 77fL (79-100) 77fL (79-100) Mean Corpuscular Hemoglobin 24pg (25-35) 24pg (25-35) Mean Corpuscular Hemoglobin Concent 32g/dL (31-37) 31g/dL (31-37) Red Cell Distribution Width 26.6% (11.5-14.5) 26.7% (11.5-14.5) Platelet Count 164x10^3/uL (140-400) 160x10^3/uL (140-400) Neutrophils (%) (Auto) 70% (31-73) Lymphocytes (%) (Auto) 17% (24-48) Monocytes (%) (Auto) 12% (0-9) Eosinophils (%) (Auto) 0% (0-3) Basophils (%) (Auto) 0% (0-3) Neutrophils # (Auto) 4.4x10^3uL (1.8-7.7) Lymphocytes # (Auto) 1.1x10^3/uL (1.0-4.8) Monocytes # (Auto) 0.7x10^3/uL (0.0-1.1) Eosinophils # (Auto) 0.0x10^3/uL (0.0-0.7) Basophils # (Auto) 0.0x10^3/uL (0.0-0.2) Sodium Level 146mmol/L (136-145) Potassium Level 2.9mmol/L (3.5-5.1) Chloride Level 112mmol/L (98-107) Carbon Dioxide Level 27mmol/L (21-32) Anion Gap 7 (6-14) Blood Urea Nitrogen 19mg/dL (8-26) Creatinine 0.7mg/dL (0.7-1.3) Estimated GFR (Cockcroft-Gault) 106.7 BUN/Creatinine Ratio 27 (6-20) Glucose Level 90mg/dL (70-99) Lactic Acid Level 1.0mmol/L (0.4-2.0) Calcium Level 7.4mg/dL (8.5-10.1) Phosphorus Level 3.7mg/dL (2.6-4.7) Magnesium Level 1.8mg/dL (1.8-2.4) Total Bilirubin 0.6mg/dL (0.2-1.0) Aspartate Amino Transf (AST/SGOT) 17U/L (15-37) Alanine Aminotransferase (ALT/SGPT) 17U/L (16-63) Alkaline Phosphatase 51U/L (46-116) Total Protein 5.1g/dL (6.4-8.2) Albumin 2.5g/dL (3.4-5.0) Albumin/Globulin Ratio 1.0 (1.0-1.7) Meds Current Medications Fentanyl Citrate (Fentanyl 2ml Vial) 25 mcg PRN Q5MIN PRN IV X 2 DOSES FOR PAIN ; Start 02/10/17 at 14:30; Stop 02/11/17 at 14:29 Fentanyl Citrate 50 mcg 50 mcg PRN Q5MIN PRN IV X 2 DOSES FOR PAIN; Start 02/10 at 14:30; Stop 02/11/17 at 14:29 Lactated Ringer's (Iv Lactated Ringers) 1,000 ml @ 125 mls/hr Q8H IV ; Start at 14:19; Stop 02/11/17 at 02:18; Status DC Lidocaine HCl 2 ml 2 ml 1X PRN PRN ID IV START; Start 02/10/17 at 14:30; Stop 02/11/17 at 14:29 Lidocaine HCl 5 ml 5 ml STK-MED ONCE .ROUTE ; Start 02/10/17 at 15:35; Stop at 15:36; Status DC Midazolam HCl (Versed) 2 mg PRN 1X PRN IV PRIOR TO PROCEDURE; Start 02/10/17 at 14:30; Stop 02/11/17 at 14:29 Potassium Phosphate/Sodium Chloride (Potassium Phosphate/Iv Sodium Chloride 0.9 % 250ml) 253.0333 ml @ 126.... Q2H IV Last administered on 02/10/17 22:13; Start 02/10/17 at 14:00; Stop 02/10/17 at 19:59; Status DC Potassium Chloride (KCl Premix 10meq) 100 ml @ 100 mls/hr Q1H IV Last administered on 02/11/17 07:24; Start 02/11/17 at 06:00; Stop 02/11/17 at 09:59 Propofol (Diprivan) 20 ml @ As Directed STK-MED ONCE IV ; Start 02/10/17 at 15: 35; Stop 02/10/17 at 15:36; Status DC Assessment Assessment 1. Acute gastrointestinal bleeding. 2. Acute renal failure with chronic kidney disease. 3. Hypokalemia. The patient has had history of hypokalemia. It may be worse due to diarrhea. 4. Diarrhea. Previous workup has been negative as noted earlier. 5. Leukocytosis. 6. Acute metabolic encephalopathy. 7. Osteoarthritis. 8. History of lumbar spinal stenosis with radiculopathy. 9. Hypertension. 10. History of cardiac arrhythmia. 11. Gastroesophageal reflux disease. 12. Physical deconditioning. PLAN: I will start him on IV Protonix. Consult Dr. Brcok for GI evaluation and management, Dr. Beckwith for leukocytosis. Leukocytosis could be reactive. I will also get a urine test. I will give him IV fluids, normal saline with IV potassium as well as put him on potassium protocol. The patient has been admitted to intensive care unit, but if he remains stable, he may be able to move to medical monitor floor. For details, please review the orders. I have also consulted Dr. Annemarie Willis for acute renal failure. Acute blood loss anemia- also dilutional- Hb 6.8 -transfuse 2 units PRBCs. GI bleding- EGD- severe esophagitis.Had a dark BM.Continue clear liquids. Hypokalemia- 2.9- replace.On K protocol. Acute renal failure- improving. Acute metabolic encephalopathy slowly improving. Hypophosphatemia- replace. Leukocytosis- resolved.Procalcitonin 0.27 slightly elevated. Change IV fluids to N saline with KCL. Condition, treatment, options were extensively discussed with the patient. Plan Plan For more details regarding further plans, please refer to the orders. KASANDRA CEDILLO MD Feb 11, 2017 09:34
[2017-02-11] MEDS: POTASSIUM CL 40MEQ IN 0.9%NACL 1,000 ML IV SCH ×2 (10:25→22:59)
[2017-02-11 11:40] LABS: HEMATOCRIT 28.1 % (39.0-53.0)
--- NOTE | 2017-02-11 13:02 | PDOC ---
Subjective: Subjective: Denies bleeding. Not really hungry. Objective: Objective: Per RN - two large BMs, dark. Vital Signs: Vital Signs Date Time Temp Pulse Resp B/P Pulse Ox O2 Delivery O2 Flow Rate FiO2 02/11/17 08:00 98.8 99 20 115/59 98 Room Air 98.8 Labs: Laboratory Tests Test 02/10/17 19:30 02/11/17 04:00 02/11/17 11:00 White Blood Count 6.5x10^3/uL 6.3x10^3/uL Red Blood Count 3.68x10^6/uL 3.64x10^6/uL Hemoglobin 8.9g/dL 8.7g/dL 9.0g/dL Hematocrit 28.3% 27.9% 28.1% Mean Corpuscular Volume 77fL 77fL Mean Corpuscular Hemoglobin 24pg 24pg Mean Corpuscular Hemoglobin Concent 32g/dL 31g/dL Red Cell Distribution Width 26.6% 26.7% Platelet Count 164x10^3/uL 160x10^3/uL Neutrophils (%) (Auto) 70% Lymphocytes (%) (Auto) 17% Monocytes (%) (Auto) 12% Eosinophils (%) (Auto) 0% Basophils (%) (Auto) 0% Neutrophils # (Auto) 4.4x10^3uL Lymphocytes # (Auto) 1.1x10^3/uL Monocytes # (Auto) 0.7x10^3/uL Eosinophils # (Auto) 0.0x10^3/uL Basophils # (Auto) 0.0x10^3/uL Sodium Level 146mmol/L Potassium Level 2.9mmol/L Chloride Level 112mmol/L Carbon Dioxide Level 27mmol/L Anion Gap 7 Blood Urea Nitrogen 19mg/dL Creatinine 0.7mg/dL Estimated GFR (Cockcroft-Gault) 106.7 BUN/Creatinine Ratio 27 Glucose Level 90mg/dL Lactic Acid Level 1.0mmol/L Calcium Level 7.4mg/dL Phosphorus Level 3.7mg/dL Magnesium Level 1.8mg/dL Total Bilirubin 0.6mg/dL Aspartate Amino Transf (AST/SGOT) 17U/L Alanine Aminotransferase (ALT/SGPT) 17U/L Alkaline Phosphatase 51U/L Total Protein 5.1g/dL Albumin 2.5g/dL Albumin/Globulin Ratio 1.0 Imaging: EGD 02/11/17 E-exudative esophagitis throughout. Multiple petechiae. G-small HH D-Normal to second portion. PE: GEN: NAD, untouched tray of clears LUNGS: CTAB anteriorly HEART: RRR ABD: S/ND/NT NEURO/PSYCH: appropriate A/P: Severe esophagitis -on IV PPI BID Anemia -dark stools reported but Hgb improved -- Will review w/ Dr. Brock re: advancing diet, changing to PO PPI. AMADOU ROSE Feb 11, 2017 13:02
[2017-02-11 15:30] VITALS: BP 118/54
[2017-02-11] MEDS: PANTOPRAZOLE 40 MG TABLET.DR. PO SCH (17:42)
[2017-02-11 19:59] VITALS: BP 111/46
[2017-02-11] MEDS ORDERED: POTASSIUM CHLORIDE 10MEQ 100 ML IV PRN (21:30)
[2017-02-11 23:53] VITALS: BP 119/61
[2017-02-12 03:59] VITALS: BP 113/44
[2017-02-12 06:36] LABS: BASO % 1 % (0-3); EOS % 4 % (0-3); HEMATOCRIT 27.7 % (39.0-53.0); HEMOGLOBIN 8.9 g/dL (13.0-17.5); LYMPH # 0.1 x10^3/uL (1.0-4.8); MEAN CORPUSCULAR HEMOGLOBIN 24 pg (25-35); MEAN CORPUSCULAR HGB CONC 32 g/dL (31-37); MEAN CORPUSCULAR VOLUME 75 fL (79-100); NEUT % 69 % (31-73); PLATELET COUNT 176 x10^3/uL (140-400); RED BLOOD COUNT 3.71 x10^6/uL (4.30-5.70); RED CELL DISTRIBUTION WIDTH 26.9 % (11.5-14.5); WHITE BLOOD COUNT 5.5 x10^3/uL (4.0-11.0)
[2017-02-12 06:37] LABS: ALBUMIN 2.5 g/dL (3.4-5.0); ALBUMIN/GLOBULIN RATIO 0.9 (1.0-1.7); CALCIUM 7.4 mg/dL (8.5-10.1); CREATININE 0.7 mg/dL (0.7-1.3); GFR 106.7; LYMPH % 19 % (24-48); MONO % 10 % (0-9); TOTAL BILIRUBIN 0.5 mg/dL (0.2-1.0); TOTAL PROTEIN 5.3 g/dL (6.4-8.2)
[2017-02-12 07:00] VITALS: BP 112/60
[2017-02-12 07:13] LABS: PHOSPHORUS 2.4 mg/dL (2.6-4.7)
[2017-02-12] MEDS: PANTOPRAZOLE 40 MG TABLET.DR. PO SCH ×2 (08:29→16:32)
[2017-02-12 11:00] VITALS: BP 114/58
[2017-02-12] MEDS: POTASSIUM CHLORIDE 10MEQ 100 ML IV PRN ×4 (11:27→16:31)
--- NOTE | 2017-02-12 11:47 | PDOC ---
GI PROGRESS NOTES Date Date/Time DATE: 02/12/17 TIME: 11:43 Subjective Subjective Eating- feels better no further melena Objective Vitals Vital Signs Date Time Temp Pulse Resp B/P Pulse Ox O2 Delivery O2 Flow Rate FiO2 02/12/17 08:00 Room Air 02/12/17 07:00 97.4 72 24 112/60 98 Room Air 97.4 02/12/17 03:59 98.7 72 18 113/44 95 Room Air 98.7 02/11/17 23:53 99.4 81 18 119/61 93 Room Air 99.4 02/11/17 20:00 Room Air 02/11/17 19:59 98.3 90 18 111/46 97 Room Air 98.3 02/11/17 15:30 98.5 73 22 118/54 97 Room Air 98.5 Objective no further melena, Hgb stable eating without pain or dysphagia Labs Labs Laboratory Tests Test 02/11/17 20:20 02/12/17 05:00 Potassium Level 2.8mmol/L (3.5-5.1) 3.0mmol/L (3.5-5.1) White Blood Count 5.5x10^3/uL (4.0-11.0) Red Blood Count 3.71x10^6/uL (4.30-5.70) Hemoglobin 8.9g/dL (13.0-17.5) Hematocrit 27.7% (39.0-53.0) Mean Corpuscular Volume 75fL (79-100) Mean Corpuscular Hemoglobin 24pg (25-35) Mean Corpuscular Hemoglobin Concent 32g/dL (31-37) Red Cell Distribution Width 26.9% (11.5-14.5) Platelet Count 176x10^3/uL (140-400) Neutrophils (%) (Auto) 69% (31-73) Lymphocytes (%) (Auto) 19% (24-48) Monocytes (%) (Auto) 10% (0-9) Eosinophils (%) (Auto) 4% (0-3) Basophils (%) (Auto) 1% (0-3) Neutrophils # (Auto) 0.5x10^3uL (1.8-7.7) Lymphocytes # (Auto) 0.1x10^3/uL (1.0-4.8) Monocytes # (Auto) 0.0x10^3/uL (0.0-1.1) Sodium Level 145mmol/L (136-145) Chloride Level 113mmol/L (98-107) Carbon Dioxide Level 26mmol/L (21-32) Anion Gap 6 (6-14) Blood Urea Nitrogen 13mg/dL (8-26) Creatinine 0.7mg/dL (0.7-1.3) Estimated GFR (Cockcroft-Gault) 106.7 BUN/Creatinine Ratio 19 (6-20) Glucose Level 92mg/dL (70-99) Lactic Acid Level 1.1mmol/L (0.4-2.0) Calcium Level 7.4mg/dL (8.5-10.1) Phosphorus Level 2.4mg/dL (2.6-4.7) Magnesium Level 1.6mg/dL (1.8-2.4) Total Bilirubin 0.5mg/dL (0.2-1.0) Aspartate Amino Transf (AST/SGOT) 14U/L (15-37) Alanine Aminotransferase (ALT/SGPT) 16U/L (16-63) Alkaline Phosphatase 58U/L (46-116) Total Protein 5.3g/dL (6.4-8.2) Albumin 2.5g/dL (3.4-5.0) Albumin/Globulin Ratio 0.9 (1.0-1.7) Physical Exam Physical Exam chest-clear abd- soft nontender Assessment Assessment 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
--- NOTE | 2017-02-12 12:11 | PDOC ---
IM PROGRESS NOTES- Subjective Subjective No diarrhea,abdominal pain,dyspnea.still weak.Unable to do full systems review. Objective Vitals Vital Signs Date Time Temp Pulse Resp B/P Pulse Ox O2 Delivery O2 Flow Rate FiO2 02/12/17 08:00 Room Air 02/12/17 07:00 97.4 72 24 112/60 98 97.4 Input & Output Intake and Output 02/12/17 07:00 Intake Total 1610 ml Output Total 1520 ml Balance 90 ml Intake Oral 1610 ml Output Urine Total 1520 ml # Bowel Movements 2 Physical Exam Physical Exam General appearance - alert,ill appearing, and in no distress Mental Status - alert, oriented to person, place, and time, affect appropriate to mood Head - normal Chest - clear to auscultation, no wheezes, rales or rhonchi, symmetric air entry Heart - S1 and S2 normal Abdomen - soft, nontender, nondistended, no masses or organomegaly Neurological - alert and oriented,weak Musculoskeletal - no muscular tenderness noted Extremities - no pedal edema Skin - warm and dry Labs Laboratory Tests Test 02/10/17 19:30 02/11/17 04:00 02/11/17 11:00 02/11/17 20:20 White Blood Count 6.5x10^3/uL (4.0-11.0) 6.3x10^3/uL (4.0-11.0) Red Blood Count 3.68x10^6/uL (4.30-5.70) 3.64x10^6/uL (4.30-5.70) Hemoglobin 8.9g/dL (13.0-17.5) 8.7g/dL (13.0-17.5) 9.0g/dL (13.0-17.5) Hematocrit 28.3% (39.0-53.0) 27.9% (39.0-53.0) 28.1% (39.0-53.0) Mean Corpuscular Volume 77fL (79-100) 77fL (79-100) Mean Corpuscular Hemoglobin 24pg (25-35) 24pg (25-35) Mean Corpuscular Hemoglobin Concent 32g/dL (31-37) 31g/dL (31-37) Red Cell Distribution Width 26.6% (11.5-14.5) 26.7% (11.5-14.5) Platelet Count 164x10^3/uL (140-400) 160x10^3/uL (140-400) Neutrophils (%) (Auto) 70% (31-73) Lymphocytes (%) (Auto) 17% (24-48) Monocytes (%) (Auto) 12% (0-9) Eosinophils (%) (Auto) 0% (0-3) Basophils (%) (Auto) 0% (0-3) Neutrophils # (Auto) 4.4x10^3uL (1.8-7.7) Lymphocytes # (Auto) 1.1x10^3/uL (1.0-4.8) Monocytes # (Auto) 0.7x10^3/uL (0.0-1.1) Eosinophils # (Auto) 0.0x10^3/uL (0.0-0.7) Basophils # (Auto) 0.0x10^3/uL (0.0-0.2) Sodium Level 146mmol/L (136-145) Potassium Level 2.9mmol/L (3.5-5.1) 3.9mmol/L (3.5-5.1) 2.8mmol/L (3.5-5.1) Chloride Level 112mmol/L (98-107) Carbon Dioxide Level 27mmol/L (21-32) Anion Gap 7 (6-14) Blood Urea Nitrogen 19mg/dL (8-26) Creatinine 0.7mg/dL (0.7-1.3) Estimated GFR (Cockcroft-Gault) 106.7 BUN/Creatinine Ratio 27 (6-20) Glucose Level 90mg/dL (70-99) Lactic Acid Level 1.0mmol/L (0.4-2.0) Calcium Level 7.4mg/dL (8.5-10.1) Phosphorus Level 3.7mg/dL (2.6-4.7) Magnesium Level 1.8mg/dL (1.8-2.4) Total Bilirubin 0.6mg/dL (0.2-1.0) Aspartate Amino Transf (AST/SGOT) 17U/L (15-37) Alanine Aminotransferase (ALT/SGPT) 17U/L (16-63) Alkaline Phosphatase 51U/L (46-116) Total Protein 5.1g/dL (6.4-8.2) Albumin 2.5g/dL (3.4-5.0) Albumin/Globulin Ratio 1.0 (1.0-1.7) Test 02/12/17 05:00 White Blood Count 5.5x10^3/uL (4.0-11.0) Red Blood Count 3.71x10^6/uL (4.30-5.70) Hemoglobin 8.9g/dL (13.0-17.5) Hematocrit 27.7% (39.0-53.0) Mean Corpuscular Volume 75fL (79-100) Mean Corpuscular Hemoglobin 24pg (25-35) Mean Corpuscular Hemoglobin Concent 32g/dL (31-37) Red Cell Distribution Width 26.9% (11.5-14.5) Platelet Count 176x10^3/uL (140-400) Neutrophils (%) (Auto) 69% (31-73) Lymphocytes (%) (Auto) 19% (24-48) Monocytes (%) (Auto) 10% (0-9) Eosinophils (%) (Auto) 4% (0-3) Basophils (%) (Auto) 1% (0-3) Neutrophils # (Auto) 0.5x10^3uL (1.8-7.7) Lymphocytes # (Auto) 0.1x10^3/uL (1.0-4.8) Monocytes # (Auto) 0.0x10^3/uL (0.0-1.1) Sodium Level 145mmol/L (136-145) Potassium Level 3.0mmol/L (3.5-5.1) Chloride Level 113mmol/L (98-107) Carbon Dioxide Level 26mmol/L (21-32) Anion Gap 6 (6-14) Blood Urea Nitrogen 13mg/dL (8-26) Creatinine 0.7mg/dL (0.7-1.3) Estimated GFR (Cockcroft-Gault) 106.7 BUN/Creatinine Ratio 19 (6-20) Glucose Level 92mg/dL (70-99) Lactic Acid Level 1.1mmol/L (0.4-2.0) Calcium Level 7.4mg/dL (8.5-10.1) Phosphorus Level 2.4mg/dL (2.6-4.7) Magnesium Level 1.6mg/dL (1.8-2.4) Total Bilirubin 0.5mg/dL (0.2-1.0) Aspartate Amino Transf (AST/SGOT) 14U/L (15-37) Alanine Aminotransferase (ALT/SGPT) 16U/L (16-63) Alkaline Phosphatase 58U/L (46-116) Total Protein 5.3g/dL (6.4-8.2) Albumin 2.5g/dL (3.4-5.0) Albumin/Globulin Ratio 0.9 (1.0-1.7) Laboratory Tests Test 02/11/17 20:20 02/12/17 05:00 Potassium Level 2.8mmol/L (3.5-5.1) 3.0mmol/L (3.5-5.1) White Blood Count 5.5x10^3/uL (4.0-11.0) Red Blood Count 3.71x10^6/uL (4.30-5.70) Hemoglobin 8.9g/dL (13.0-17.5) Hematocrit 27.7% (39.0-53.0) Mean Corpuscular Volume 75fL (79-100) Mean Corpuscular Hemoglobin 24pg (25-35) Mean Corpuscular Hemoglobin Concent 32g/dL (31-37) Red Cell Distribution Width 26.9% (11.5-14.5) Platelet Count 176x10^3/uL (140-400) Neutrophils (%) (Auto) 69% (31-73) Lymphocytes (%) (Auto) 19% (24-48) Monocytes (%) (Auto) 10% (0-9) Eosinophils (%) (Auto) 4% (0-3) Basophils (%) (Auto) 1% (0-3) Neutrophils # (Auto) 0.5x10^3uL (1.8-7.7) Lymphocytes # (Auto) 0.1x10^3/uL (1.0-4.8) Monocytes # (Auto) 0.0x10^3/uL (0.0-1.1) Sodium Level 145mmol/L (136-145) Chloride Level 113mmol/L (98-107) Carbon Dioxide Level 26mmol/L (21-32) Anion Gap 6 (6-14) Blood Urea Nitrogen 13mg/dL (8-26) Creatinine 0.7mg/dL (0.7-1.3) Estimated GFR (Cockcroft-Gault) 106.7 BUN/Creatinine Ratio 19 (6-20) Glucose Level 92mg/dL (70-99) Lactic Acid Level 1.1mmol/L (0.4-2.0) Calcium Level 7.4mg/dL (8.5-10.1) Phosphorus Level 2.4mg/dL (2.6-4.7) Magnesium Level 1.6mg/dL (1.8-2.4) Total Bilirubin 0.5mg/dL (0.2-1.0) Aspartate Amino Transf (AST/SGOT) 14U/L (15-37) Alanine Aminotransferase (ALT/SGPT) 16U/L (16-63) Alkaline Phosphatase 58U/L (46-116) Total Protein 5.3g/dL (6.4-8.2) Albumin 2.5g/dL (3.4-5.0) Albumin/Globulin Ratio 0.9 (1.0-1.7) Meds Current Medications Pantoprazole Sodium 40 mg 40 mg BIDAC PO Last administered on 02/12/17 08:29; Start 02/11/17 at 16:30 Potassium Chloride 100 ml @ 100 mls/hr PRN Q1HR PRN IV K<3.7; Start 02/11/17 at 21:30 Potassium Chloride 100 ml @ 100 mls/hr Q1H IV Last administered on 02/11/17 22:58; Start 02/11/17 at 21:30; Stop 02/11/17 at 23:29; Status DC Potassium Chloride (KCl Premix 10meq) 100 ml @ 100 mls/hr PRN Q1HR PRN IV K < 3.5 Last administered on 02/12/17 11:27; Start 02/11/17 at 21:30 Assessment Assessment 1. Acute gastrointestinal bleeding. 2. Acute renal failure with chronic kidney disease. 3. Hypokalemia. The patient has had history of hypokalemia. It may be worse due to diarrhea. 4. Diarrhea. Previous workup has been negative as noted earlier. 5. Leukocytosis. 6. Acute metabolic encephalopathy. 7. Osteoarthritis. 8. History of lumbar spinal stenosis with radiculopathy. 9. Hypertension. 10. History of cardiac arrhythmia. 11. Gastroesophageal reflux disease. 12. Physical deconditioning. PLAN: I will start him on IV Protonix. Consult Dr. Brock for GI evaluation and management, Dr. Beckwith for leukocytosis. Leukocytosis could be reactive. I will also get a urine test. I will give him IV fluids, normal saline with IV potassium as well as put him on potassium protocol. The patient has been admitted to intensive care unit, but if he remains stable, he may be able to move to medical monitor floor. For details, please review the orders. I have also consulted Dr. Annemarie Willis for acute renal failure. Acute blood loss anemia- also dilutional- Hb 6.8 -transfuse 2 units PRBCs. GI bleding- EGD- severe esophagitis.Had a dark BM.Continue clear liquids. Hypokalemia- 3 replace.On K protocol.Persistent hypokalemia- but patient denies any diarrhea.May need spironolactone.He has h/o hypokalemia in past. Acute renal failure- improving. Acute metabolic encephalopathy slowly improving. Hypophosphatemia- replace. Leukocytosis- resolved.Procalcitonin 0.27 slightly elevated. Change IV fluids to N saline with KCL. Condition, treatment, options were extensively discussed with the patient. Plan Plan For more details regarding further plans, please refer to the orders. KASANDRA CEDILLO MD Feb 12, 2017 12:11
[2017-02-12] MEDS: POTASSIUM CL 40MEQ IN 0.9%NACL 1,000 ML IV SCH (12:37)
[2017-02-12 19:59] VITALS: BP 109/51
[2017-02-12 23:52] VITALS: BP 146/68
[2017-02-13 03:59] VITALS: BP 136/65
[2017-02-13] MEDS: POTASSIUM CL 40MEQ IN 0.9%NACL 1,000 ML IV SCH ×3 (04:50→18:43)
[2017-02-13 05:19] LABS: BASO % 1 % (0-3); EOS % 4 % (0-3); HEMOGLOBIN 8.9 g/dL (13.0-17.5); LYMPH # 1.1 x10^3/uL (1.0-4.8); LYMPH % 22 % (24-48); MEAN CORPUSCULAR HEMOGLOBIN 24 pg (25-35); MEAN CORPUSCULAR HGB CONC 32 g/dL (31-37); MEAN CORPUSCULAR VOLUME 76 fL (79-100); MONO % 11 % (0-9); NEUT % 62 % (31-73); PLATELET COUNT 161 x10^3/uL (140-400); RED BLOOD COUNT 3.69 x10^6/uL (4.30-5.70)
[2017-02-13 05:35] LABS: ALBUMIN 2.5 g/dL (3.4-5.0); ALBUMIN/GLOBULIN RATIO 0.8 (1.0-1.7); CALCIUM 7.8 mg/dL (8.5-10.1); CREATININE 0.6 mg/dL (0.7-1.3); GFR 127.4; POTASSIUM 3.4 mmol/L (3.5-5.1); TOTAL BILIRUBIN 0.5 mg/dL (0.2-1.0); TOTAL PROTEIN 5.5 g/dL (6.4-8.2)
[2017-02-13 07:00] VITALS: BP 112/74
[2017-02-13] MEDS: PANTOPRAZOLE 40 MG TABLET.DR. PO SCH ×2 (07:51→16:25)
[2017-02-13 11:00] VITALS: BP 115/70
[2017-02-13] MEDS ORDERED: POTASSIUM CHLORIDE 20 MEQ TABLET.ER. PO ONE (11:15)
[2017-02-13] MEDS: POTASSIUM CHLORIDE 10MEQ 100 ML IV PRN (11:59)
[2017-02-13] MEDS ORDERED: LOPERAMIDE 2 MG CAPSULE PO PRN (12:45)
--- NOTE | 2017-02-13 12:45 | PDOC ---
GI PROGRESS NOTES Date Date/Time DATE: 02/13/17 TIME: 12:41 Subjective Subjective eating no further melena and Hgb stable diarrhea this am- first in several days but had history in past - w/u 2015 was negative Objective Vitals Vital Signs Date Time Temp Pulse Resp B/P Pulse Ox O2 Delivery O2 Flow Rate FiO2 02/13/17 11:00 97.9 74 20 115/70 96 Room Air 97.9 02/13/17 07:40 Room Air 02/13/17 07:00 97.8 68 20 112/74 98 Room Air 97.8 02/13/17 03:59 98.6 80 18 136/65 95 Room Air 98.6 02/12/17 23:52 98.9 69 18 146/68 96 Room Air 98.9 02/12/17 20:00 Room Air 02/12/17 19:59 99.0 79 18 109/51 96 Room Air 99.0 Labs Labs Laboratory Tests Test 02/13/17 03:31 02/13/17 04:20 White Blood Count 5.0x10^3/uL (4.0-11.0) Red Blood Count 3.69x10^6/uL (4.30-5.70) Hemoglobin 8.9g/dL (13.0-17.5) Hematocrit 28.0% (39.0-53.0) Mean Corpuscular Volume 76fL (79-100) Mean Corpuscular Hemoglobin 24pg (25-35) Mean Corpuscular Hemoglobin Concent 32g/dL (31-37) Red Cell Distribution Width 27.0% (11.5-14.5) Platelet Count 161x10^3/uL (140-400) Neutrophils (%) (Auto) 62% (31-73) Lymphocytes (%) (Auto) 22% (24-48) Monocytes (%) (Auto) 11% (0-9) Eosinophils (%) (Auto) 4% (0-3) Basophils (%) (Auto) 1% (0-3) Neutrophils # (Auto) 3.1x10^3uL (1.8-7.7) Lymphocytes # (Auto) 1.1x10^3/uL (1.0-4.8) Monocytes # (Auto) 0.5x10^3/uL (0.0-1.1) Eosinophils # (Auto) 0.2x10^3/uL (0.0-0.7) Basophils # (Auto) 0.0x10^3/uL (0.0-0.2) Sodium Level 140mmol/L (136-145) Potassium Level 3.4mmol/L (3.5-5.1) Chloride Level 108mmol/L (98-107) Carbon Dioxide Level 24mmol/L (21-32) Anion Gap 8 (6-14) Blood Urea Nitrogen 7mg/dL (8-26) Creatinine 0.6mg/dL (0.7-1.3) Estimated GFR (Cockcroft-Gault) 127.4 BUN/Creatinine Ratio 12 (6-20) Glucose Level 90mg/dL (70-99) Lactic Acid Level 0.8mmol/L (0.4-2.0) Calcium Level 7.8mg/dL (8.5-10.1) Total Bilirubin 0.5mg/dL (0.2-1.0) Aspartate Amino Transf (AST/SGOT) 14U/L (15-37) Alanine Aminotransferase (ALT/SGPT) 14U/L (16-63) Alkaline Phosphatase 66U/L (46-116) Total Protein 5.5g/dL (6.4-8.2) Albumin 2.5g/dL (3.4-5.0) Albumin/Globulin Ratio 0.8 (1.0-1.7) Magnesium Level 1.8mg/dL (1.8-2.4) Physical Exam Physical Exam chest-clear abd- soft nontender Assessment Assessment 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
--- NOTE | 2017-02-13 12:59 | PDOC ---
IM PROGRESS NOTES- Subjective Subjective Still has diarrhea per staff. Objective Vitals Vital Signs Date Time Temp Pulse Resp B/P Pulse Ox O2 Delivery O2 Flow Rate FiO2 02/13/17 11:00 97.9 74 20 115/70 96 Room Air 97.9 Input & Output Intake and Output 02/13/17 07:00 Intake Total 1320 ml Output Total 1700 ml Balance -380 ml Intake Oral 1320 ml Output Urine Total 1700 ml # Bowel Movements 4 Physical Exam Physical Exam General appearance - alert,ill appearing, and in no distress Mental Status - alert, oriented to person, place, and time, affect appropriate to mood Head - normal Chest - clear to auscultation, no wheezes, rales or rhonchi, symmetric air entry Heart - S1 and S2 normal Abdomen - soft, nontender, nondistended, no masses or organomegaly Neurological - alert and oriented,weak Musculoskeletal - no muscular tenderness noted Extremities - no pedal edema Skin - warm and dry Labs Laboratory Tests Test 02/11/17 20:20 02/12/17 05:00 02/13/17 03:31 02/13/17 04:20 Potassium Level 2.8mmol/L (3.5-5.1) 3.0mmol/L (3.5-5.1) 3.4mmol/L (3.5-5.1) White Blood Count 5.5x10^3/uL (4.0-11.0) 5.0x10^3/uL (4.0-11.0) Red Blood Count 3.71x10^6/uL (4.30-5.70) 3.69x10^6/uL (4.30-5.70) Hemoglobin 8.9g/dL (13.0-17.5) 8.9g/dL (13.0-17.5) Hematocrit 27.7% (39.0-53.0) 28.0% (39.0-53.0) Mean Corpuscular Volume 75fL (79-100) 76fL (79-100) Mean Corpuscular Hemoglobin 24pg (25-35) 24pg (25-35) Mean Corpuscular Hemoglobin Concent 32g/dL (31-37) 32g/dL (31-37) Red Cell Distribution Width 26.9% (11.5-14.5) 27.0% (11.5-14.5) Platelet Count 176x10^3/uL (140-400) 161x10^3/uL (140-400) Neutrophils (%) (Auto) 69% (31-73) 62% (31-73) Lymphocytes (%) (Auto) 19% (24-48) 22% (24-48) Monocytes (%) (Auto) 10% (0-9) 11% (0-9) Eosinophils (%) (Auto) 4% (0-3) 4% (0-3) Basophils (%) (Auto) 1% (0-3) 1% (0-3) Neutrophils # (Auto) 0.5x10^3uL (1.8-7.7) 3.1x10^3uL (1.8-7.7) Lymphocytes # (Auto) 0.1x10^3/uL (1.0-4.8) 1.1x10^3/uL (1.0-4.8) Monocytes # (Auto) 0.0x10^3/uL (0.0-1.1) 0.5x10^3/uL (0.0-1.1) Sodium Level 145mmol/L (136-145) 140mmol/L (136-145) Chloride Level 113mmol/L (98-107) 108mmol/L (98-107) Carbon Dioxide Level 26mmol/L (21-32) 24mmol/L (21-32) Anion Gap 6 (6-14) 8 (6-14) Blood Urea Nitrogen 13mg/dL (8-26) 7mg/dL (8-26) Creatinine 0.7mg/dL (0.7-1.3) 0.6mg/dL (0.7-1.3) Estimated GFR (Cockcroft-Gault) 106.7 127.4 BUN/Creatinine Ratio 19 (6-20) 12 (6-20) Glucose Level 92mg/dL (70-99) 90mg/dL (70-99) Lactic Acid Level 1.1mmol/L (0.4-2.0) 0.8mmol/L (0.4-2.0) Calcium Level 7.4mg/dL (8.5-10.1) 7.8mg/dL (8.5-10.1) Phosphorus Level 2.4mg/dL (2.6-4.7) Magnesium Level 1.6mg/dL (1.8-2.4) 1.8mg/dL (1.8-2.4) Total Bilirubin 0.5mg/dL (0.2-1.0) 0.5mg/dL (0.2-1.0) Aspartate Amino Transf (AST/SGOT) 14U/L (15-37) 14U/L (15-37) Alanine Aminotransferase (ALT/SGPT) 16U/L (16-63) 14U/L (16-63) Alkaline Phosphatase 58U/L (46-116) 66U/L (46-116) Total Protein 5.3g/dL (6.4-8.2) 5.5g/dL (6.4-8.2) Albumin 2.5g/dL (3.4-5.0) 2.5g/dL (3.4-5.0) Albumin/Globulin Ratio 0.9 (1.0-1.7) 0.8 (1.0-1.7) Eosinophils # (Auto) 0.2x10^3/uL (0.0-0.7) Basophils # (Auto) 0.0x10^3/uL (0.0-0.2) Laboratory Tests Test 02/13/17 03:31 02/13/17 04:20 White Blood Count 5.0x10^3/uL (4.0-11.0) Red Blood Count 3.69x10^6/uL (4.30-5.70) Hemoglobin 8.9g/dL (13.0-17.5) Hematocrit 28.0% (39.0-53.0) Mean Corpuscular Volume 76fL (79-100) Mean Corpuscular Hemoglobin 24pg (25-35) Mean Corpuscular Hemoglobin Concent 32g/dL (31-37) Red Cell Distribution Width 27.0% (11.5-14.5) Platelet Count 161x10^3/uL (140-400) Neutrophils (%) (Auto) 62% (31-73) Lymphocytes (%) (Auto) 22% (24-48) Monocytes (%) (Auto) 11% (0-9) Eosinophils (%) (Auto) 4% (0-3) Basophils (%) (Auto) 1% (0-3) Neutrophils # (Auto) 3.1x10^3uL (1.8-7.7) Lymphocytes # (Auto) 1.1x10^3/uL (1.0-4.8) Monocytes # (Auto) 0.5x10^3/uL (0.0-1.1) Eosinophils # (Auto) 0.2x10^3/uL (0.0-0.7) Basophils # (Auto) 0.0x10^3/uL (0.0-0.2) Sodium Level 140mmol/L (136-145) Potassium Level 3.4mmol/L (3.5-5.1) Chloride Level 108mmol/L (98-107) Carbon Dioxide Level 24mmol/L (21-32) Anion Gap 8 (6-14) Blood Urea Nitrogen 7mg/dL (8-26) Creatinine 0.6mg/dL (0.7-1.3) Estimated GFR (Cockcroft-Gault) 127.4 BUN/Creatinine Ratio 12 (6-20) Glucose Level 90mg/dL (70-99) Lactic Acid Level 0.8mmol/L (0.4-2.0) Calcium Level 7.8mg/dL (8.5-10.1) Total Bilirubin 0.5mg/dL (0.2-1.0) Aspartate Amino Transf (AST/SGOT) 14U/L (15-37) Alanine Aminotransferase (ALT/SGPT) 14U/L (16-63) Alkaline Phosphatase 66U/L (46-116) Total Protein 5.5g/dL (6.4-8.2) Albumin 2.5g/dL (3.4-5.0) Albumin/Globulin Ratio 0.8 (1.0-1.7) Magnesium Level 1.8mg/dL (1.8-2.4) Meds Current Medications Loperamide HCl (Imodium) 2 mg PRN Q8HRS PRN PO DIARRHEA; Start 02/13/17 at 12: 45 Potassium Chloride (Klor-Con) 20 meq 1X ONCE PO Last administered on 4/30/ 17at 11:58; Start 02/13/17 at 11:15; Stop 02/13/17 at 11:19; Status DC Assessment Assessment 1. Acute gastrointestinal bleeding. 2. Acute renal failure with chronic kidney disease. 3. Hypokalemia. The patient has had history of hypokalemia. It may be worse due to diarrhea. 4. Diarrhea. Previous workup has been negative as noted earlier. 5. Leukocytosis. 6. Acute metabolic encephalopathy. 7. Osteoarthritis. 8. History of lumbar spinal stenosis with radiculopathy. 9. Hypertension. 10. History of cardiac arrhythmia. 11. Gastroesophageal reflux disease. 12. Physical deconditioning. PLAN: I will start him on IV Protonix. Consult Dr. Brock for GI evaluation and management, Dr. Beckwith for leukocytosis. Leukocytosis could be reactive. I will also get a urine test. I will give him IV fluids, normal saline with IV potassium as well as put him on potassium protocol. The patient has been admitted to intensive care unit, but if he remains stable, he may be able to move to medical monitor floor. For details, please review the orders. I have also consulted Dr. Annemarie Willis for acute renal failure. Acute blood loss anemia- also dilutional- Hb 6.8 -transfuse 2 units PRBCs. GI bleding- EGD- severe esophagitis.Had a dark BM.Continue clear liquids. Hypokalemia- 3.4 replace.On K protocol.Persistent hypokalemia- but patient denies any diarrhea.May need spironolactone.He has h/o hypokalemia in past. Acute renal failure- improving. Acute metabolic encephalopathy slowly improving. Hypophosphatemia- replace. Leukocytosis- resolved.Procalcitonin 0.27 slightly elevated. Change IV fluids to N saline with KCL. Diarrhea- previous workup negative. Condition, treatment, options were extensively discussed with the patient. Plan Plan For more details regarding further plans, please refer to the orders. KASANDRA CEDILLO MD Feb 13, 2017 12:59
[2017-02-13 15:00] VITALS: BP 114/68
[2017-02-13 19:00] VITALS: BP 116/51
[2017-02-13 22:52] VITALS: BP 124/60
[2017-02-14 03:06] VITALS: BP 124/66
[2017-02-14 04:12] LABS: ALBUMIN 2.3 g/dL (3.4-5.0); ALBUMIN/GLOBULIN RATIO 0.8 (1.0-1.7); CALCIUM 7.8 mg/dL (8.5-10.1); CREATININE 0.7 mg/dL (0.7-1.3); GFR 106.7; TOTAL BILIRUBIN 0.3 mg/dL (0.2-1.0); TOTAL PROTEIN 5.2 g/dL (6.4-8.2)
[2017-02-14 04:24] LABS: BASO % 0 % (0-3); EOS % 4 % (0-3); HEMATOCRIT 25.9 % (39.0-53.0); HEMOGLOBIN 8.3 g/dL (13.0-17.5); LYMPH # 1.2 x10^3/uL (1.0-4.8); LYMPH % 24 % (24-48); MEAN CORPUSCULAR HEMOGLOBIN 24 pg (25-35); MEAN CORPUSCULAR HGB CONC 32 g/dL (31-37); MEAN CORPUSCULAR VOLUME 75 fL (79-100); MONO % 12 % (0-9); NEUT % 60 % (31-73); PLATELET COUNT 169 x10^3/uL (140-400); RED BLOOD COUNT 3.45 x10^6/uL (4.30-5.70); RED CELL DISTRIBUTION WIDTH 27.5 % (11.5-14.5); WHITE BLOOD COUNT 4.8 x10^3/uL (4.0-11.0)
[2017-02-14 07:00] VITALS: BP 134/69
[2017-02-14] MEDS: PANTOPRAZOLE 40 MG TABLET.DR. PO SCH ×2 (08:52→16:15)
--- NOTE | 2017-02-14 10:00 | PDOC ---
IM PROGRESS NOTES- Subjective Subjective Still has diarrhea last night. Objective Vitals Vital Signs Date Time Temp Pulse Resp B/P Pulse Ox O2 Delivery O2 Flow Rate FiO2 02/14/17 03:06 74 124/66 02/13/17 22:52 98.6 18 98 Room Air 98.6 Input & Output Intake and Output 02/14/17 07:00 Intake Total 1640 ml Output Total 2400 ml Balance -760 ml Intake Oral 1640 ml Output Urine Total 2400 ml # Bowel Movements 2 Physical Exam Physical Exam General appearance - alert,ill appearing, and in no distress Mental Status - alert, oriented to person, place, and time, affect appropriate to mood Head - normal Chest - clear to auscultation, no wheezes, rales or rhonchi, symmetric air entry Heart - S1 and S2 normal Abdomen - soft, nontender, nondistended, no masses or organomegaly Neurological - alert and oriented,weak Musculoskeletal - no muscular tenderness noted Extremities - no pedal edema Skin - warm and dry Labs Laboratory Tests Test 02/13/17 03:31 02/13/17 04:20 02/14/17 03:30 White Blood Count 5.0x10^3/uL (4.0-11.0) 4.8x10^3/uL (4.0-11.0) Red Blood Count 3.69x10^6/uL (4.30-5.70) 3.45x10^6/uL (4.30-5.70) Hemoglobin 8.9g/dL (13.0-17.5) 8.3g/dL (13.0-17.5) Hematocrit 28.0% (39.0-53.0) 25.9% (39.0-53.0) Mean Corpuscular Volume 76fL (79-100) 75fL (79-100) Mean Corpuscular Hemoglobin 24pg (25-35) 24pg (25-35) Mean Corpuscular Hemoglobin Concent 32g/dL (31-37) 32g/dL (31-37) Red Cell Distribution Width 27.0% (11.5-14.5) 27.5% (11.5-14.5) Platelet Count 161x10^3/uL (140-400) 169x10^3/uL (140-400) Neutrophils (%) (Auto) 62% (31-73) 60% (31-73) Lymphocytes (%) (Auto) 22% (24-48) 24% (24-48) Monocytes (%) (Auto) 11% (0-9) 12% (0-9) Eosinophils (%) (Auto) 4% (0-3) 4% (0-3) Basophils (%) (Auto) 1% (0-3) 0% (0-3) Neutrophils # (Auto) 3.1x10^3uL (1.8-7.7) 2.9x10^3uL (1.8-7.7) Lymphocytes # (Auto) 1.1x10^3/uL (1.0-4.8) 1.2x10^3/uL (1.0-4.8) Monocytes # (Auto) 0.5x10^3/uL (0.0-1.1) 0.6x10^3/uL (0.0-1.1) Eosinophils # (Auto) 0.2x10^3/uL (0.0-0.7) 0.2x10^3/uL (0.0-0.7) Basophils # (Auto) 0.0x10^3/uL (0.0-0.2) 0.0x10^3/uL (0.0-0.2) Sodium Level 140mmol/L (136-145) 140mmol/L (136-145) Potassium Level 3.4mmol/L (3.5-5.1) 4.0mmol/L (3.5-5.1) Chloride Level 108mmol/L (98-107) 110mmol/L (98-107) Carbon Dioxide Level 24mmol/L (21-32) 25mmol/L (21-32) Anion Gap 8 (6-14) 5 (6-14) Blood Urea Nitrogen 7mg/dL (8-26) 7mg/dL (8-26) Creatinine 0.6mg/dL (0.7-1.3) 0.7mg/dL (0.7-1.3) Estimated GFR (Cockcroft-Gault) 127.4 106.7 BUN/Creatinine Ratio 12 (6-20) 10 (6-20) Glucose Level 90mg/dL (70-99) 107mg/dL (70-99) Lactic Acid Level 0.8mmol/L (0.4-2.0) 0.8mmol/L (0.4-2.0) Calcium Level 7.8mg/dL (8.5-10.1) 7.8mg/dL (8.5-10.1) Total Bilirubin 0.5mg/dL (0.2-1.0) 0.3mg/dL (0.2-1.0) Aspartate Amino Transf (AST/SGOT) 14U/L (15-37) 11U/L (15-37) Alanine Aminotransferase (ALT/SGPT) 14U/L (16-63) 12U/L (16-63) Alkaline Phosphatase 66U/L (46-116) 67U/L (46-116) Total Protein 5.5g/dL (6.4-8.2) 5.2g/dL (6.4-8.2) Albumin 2.5g/dL (3.4-5.0) 2.3g/dL (3.4-5.0) Albumin/Globulin Ratio 0.8 (1.0-1.7) 0.8 (1.0-1.7) Magnesium Level 1.8mg/dL (1.8-2.4) 1.7mg/dL (1.8-2.4) Laboratory Tests Test 02/14/17 03:30 White Blood Count 4.8x10^3/uL (4.0-11.0) Red Blood Count 3.45x10^6/uL (4.30-5.70) Hemoglobin 8.3g/dL (13.0-17.5) Hematocrit 25.9% (39.0-53.0) Mean Corpuscular Volume 75fL (79-100) Mean Corpuscular Hemoglobin 24pg (25-35) Mean Corpuscular Hemoglobin Concent 32g/dL (31-37) Red Cell Distribution Width 27.5% (11.5-14.5) Platelet Count 169x10^3/uL (140-400) Neutrophils (%) (Auto) 60% (31-73) Lymphocytes (%) (Auto) 24% (24-48) Monocytes (%) (Auto) 12% (0-9) Eosinophils (%) (Auto) 4% (0-3) Basophils (%) (Auto) 0% (0-3) Neutrophils # (Auto) 2.9x10^3uL (1.8-7.7) Lymphocytes # (Auto) 1.2x10^3/uL (1.0-4.8) Monocytes # (Auto) 0.6x10^3/uL (0.0-1.1) Eosinophils # (Auto) 0.2x10^3/uL (0.0-0.7) Basophils # (Auto) 0.0x10^3/uL (0.0-0.2) Sodium Level 140mmol/L (136-145) Potassium Level 4.0mmol/L (3.5-5.1) Chloride Level 110mmol/L (98-107) Carbon Dioxide Level 25mmol/L (21-32) Anion Gap 5 (6-14) Blood Urea Nitrogen 7mg/dL (8-26) Creatinine 0.7mg/dL (0.7-1.3) Estimated GFR (Cockcroft-Gault) 106.7 BUN/Creatinine Ratio 10 (6-20) Glucose Level 107mg/dL (70-99) Lactic Acid Level 0.8mmol/L (0.4-2.0) Calcium Level 7.8mg/dL (8.5-10.1) Magnesium Level 1.7mg/dL (1.8-2.4) Total Bilirubin 0.3mg/dL (0.2-1.0) Aspartate Amino Transf (AST/SGOT) 11U/L (15-37) Alanine Aminotransferase (ALT/SGPT) 12U/L (16-63) Alkaline Phosphatase 67U/L (46-116) Total Protein 5.2g/dL (6.4-8.2) Albumin 2.3g/dL (3.4-5.0) Albumin/Globulin Ratio 0.8 (1.0-1.7) Meds Current Medications Loperamide HCl (Imodium) 2 mg PRN Q8HRS PRN PO DIARRHEA Last administered on 16:25; Start 02/13/17 at 12:45 Potassium Chloride (Klor-Con) 20 meq 1X ONCE PO Last administered on 4/30/ 17at 11:58; Start 02/13/17 at 11:15; Stop 02/13/17 at 11:19; Status DC Assessment Assessment 1. Acute gastrointestinal bleeding. 2. Acute renal failure with chronic kidney disease. 3. Hypokalemia. The patient has had history of hypokalemia. It may be worse due to diarrhea. 4. Diarrhea. Previous workup has been negative as noted earlier. 5. Leukocytosis. 6. Acute metabolic encephalopathy. 7. Osteoarthritis. 8. History of lumbar spinal stenosis with radiculopathy. 9. Hypertension. 10. History of cardiac arrhythmia. 11. Gastroesophageal reflux disease. 12. Physical deconditioning. PLAN: I will start him on IV Protonix. Consult Dr. Brock for GI evaluation and management, Dr. Beckwith for leukocytosis. Leukocytosis could be reactive. I will also get a urine test. I will give him IV fluids, normal saline with IV potassium as well as put him on potassium protocol. The patient has been admitted to intensive care unit, but if he remains stable, he may be able to move to medical monitor floor. For details, please review the orders. I have also consulted Dr. Annemarie Willis for acute renal failure. Acute blood loss anemia- also dilutional- Hb 6.8 -transfuse 2 units PRBCs. GI bleding- EGD- severe esophagitis.Had a dark BM.Continue clear liquids. Hypokalemia- 3.4 replace.On K protocol.Persistent hypokalemia- but patient denies any diarrhea.May need spironolactone.He has h/o hypokalemia in past. Acute renal failure- improving. Acute metabolic encephalopathy slowly improving. Hypophosphatemia- replace. Leukocytosis- resolved.Procalcitonin 0.27 slightly elevated. Hypokalemia- better- d/c K protocol and see. Hb decreased to 8.3- may need transfusion if it drops . Diarrhea- previous workup negative. Discharge tomorrow to [facility]. Condition, treatment, options were extensively discussed with the patient. Plan Plan For more details regarding further plans, please refer to the orders. KASANDRA CEDILLO MD February 14, 2017 10:00
[2017-02-14 10:45] VITALS: BP 108/56
--- NOTE | 2017-02-14 13:23 | PDOC ---
Subjective: Subjective: Doing okay he thinks. Denies bleeding. Objective: Objective: Per RN, having some diarrhea w/o bleeding, eating okay. Possible DC tomorrow. 2 stools charted. Vital Signs: Vital Signs Date Time Temp Pulse Resp B/P Pulse Ox O2 Delivery O2 Flow Rate FiO2 02/14/17 10:45 97.6 92 18 108/56 99 Room Air 97.6 Labs: Laboratory Tests Test 02/14/17 03:30 White Blood Count 4.8x10^3/uL Red Blood Count 3.45x10^6/uL Hemoglobin 8.3g/dL Hematocrit 25.9% Mean Corpuscular Volume 75fL Mean Corpuscular Hemoglobin 24pg Mean Corpuscular Hemoglobin Concent 32g/dL Red Cell Distribution Width 27.5% Platelet Count 169x10^3/uL Neutrophils (%) (Auto) 60% Lymphocytes (%) (Auto) 24% Monocytes (%) (Auto) 12% Eosinophils (%) (Auto) 4% Basophils (%) (Auto) 0% Neutrophils # (Auto) 2.9x10^3uL Lymphocytes # (Auto) 1.2x10^3/uL Monocytes # (Auto) 0.6x10^3/uL Eosinophils # (Auto) 0.2x10^3/uL Basophils # (Auto) 0.0x10^3/uL Sodium Level 140mmol/L Potassium Level 4.0mmol/L Chloride Level 110mmol/L Carbon Dioxide Level 25mmol/L Anion Gap 5 Blood Urea Nitrogen 7mg/dL Creatinine 0.7mg/dL Estimated GFR (Cockcroft-Gault) 106.7 BUN/Creatinine Ratio 10 Glucose Level 107mg/dL Lactic Acid Level 0.8mmol/L Calcium Level 7.8mg/dL Magnesium Level 1.7mg/dL Total Bilirubin 0.3mg/dL Aspartate Amino Transf (AST/SGOT) 11U/L Alanine Aminotransferase (ALT/SGPT) 12U/L Alkaline Phosphatase 67U/L Total Protein 5.2g/dL Albumin 2.3g/dL Albumin/Globulin Ratio 0.8 PE: GEN: NAD LUNGS: clear anteriorly HEART: RRR ABD: NABS, S/ND/NT NEURO/PSYCH: A & O 3 A/P: Severe esophagitis -on PO PPI BID, tolerating diet Anemia -Hgb stable w/o obvious bleeding Diarrhea -history of this w/ previously unrevealing EGD and colonoscopy (except for esophagitis) -- Improved. Continue PPI. AMADOU ROSE February 14, 2017 13:23
[2017-02-14] MEDS: POTASSIUM CL 40MEQ IN 0.9%NACL 1,000 ML IV SCH (13:30)
[2017-02-14 15:00] VITALS: BP_SYST 105; BP_SYST 150; BP_DIAS 54; BP_DIAS 66
[2017-02-14 19:00] VITALS: BP 100/56
[2017-02-14 23:00] VITALS: BP 98/65
[2017-02-15] MEDS: POTASSIUM CL 40MEQ IN 0.9%NACL 1,000 ML IV SCH (01:27)
--- NOTE | 2017-02-15 01:50 | CONS ---
DATE OF CONSULTATION: 02/14/2017 ATTENDING PHYSICIAN: Dr. Lobo Nuñez. The patient was seen at the request of Dr. Nuñez for rehab evaluation. HISTORY OF PRESENT ILLNESS: This is an 86-year-old male, a resident of assisted living facility. The patient was noted with a syncopal episode with dark stool. He was admitted through the Emergency Room where he was noted with WBC count of 18.2, hemoglobin 8.8, serum potassium of 3, BUN 81 and creatinine 1.4. He also had some diarrhea. The patient felt weak and he was also noted with some confusion at the time of admission. The patient, since admission, was evaluated for anemia, GI bleeding, leukocytosis and hypokalemia and also treated for acute renal failure. The patient is feeling better. He denies any pain. The patient states he feels weak. He is being considered for transfer to nursing home care unit. The patient is status post lumbar spine surgery in the past, but denies any back pain at present time. He had an EGD done in the past, which showed reflux esophagitis, quite severe. Colonoscopy done revealed diverticulosis and hemorrhoids. He also with known hypertension, degenerative joint disease, kyphosis of thoracic spine, gastroesophageal reflux disease, anemia, hypokalemia, and cardiac arrhythmia. 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 He is not known allergic to any medication. He is independent with his mobility at roller walker level prior to the present hospitalization. PHYSICAL EXAMINATION: Today revealed an elderly male. He is alert, oriented to place and person, follows commands appropriately, moves all 4 extremities voluntarily where he had 4+/5 grade muscle strength and deep tendon reflexes are 1-2+ and symmetrical with absent ankle jerks. He had equal perception of touch and pinprick sensation bilaterally. He had crepitus on range of motion of both knee joints without any obvious knee joint effusion. The patient is independent with bed mobility, though moves slowly, trying to get up. He walked using a roller walker at bedside. He is receiving IV fluids. ASSESSMENT: Mobility and self-care limitation in a patient with a deconditioned state from recent hospitalization for anemia and leukocytosis. The patient with known degenerative joint disease of both knees, also with known gastroesophageal reflux disease, hypertension, status post lumbar spine surgery without any significant back pain at present time. He also presents with clinical evidence of peripheral neuropathy. RECOMMENDATIONS: Agree with the plan for transfer to nursing home care unit for continued physical therapy and occupational therapy followup to improve his physical endurance. Dr. Nuñez, I appreciate asking me to participate in the care of this interesting patient. I will be glad to follow him with you as needed for his rehabilitation. NEPTALI VICK MD DR: ABIGAIL/delbert JOB#: [id number] / [id number]
[2017-02-15 03:00] VITALS: BP 126/63
[2017-02-15 07:00] VITALS: BP 142/66
[2017-02-15] MEDS: PANTOPRAZOLE 40 MG TABLET.DR. PO SCH (07:30)
[2017-02-15 07:57] LABS: BASO % 1 % (0-3); EOS % 4 % (0-3); HEMATOCRIT 27.2 % (39.0-53.0); HEMOGLOBIN 8.6 g/dL (13.0-17.5); LYMPH # 0.9 x10^3/uL (1.0-4.8); LYMPH % 21 % (24-48); MEAN CORPUSCULAR HEMOGLOBIN 24 pg (25-35); MEAN CORPUSCULAR HGB CONC 31 g/dL (31-37); MEAN CORPUSCULAR VOLUME 76 fL (79-100); MONO % 13 % (0-9); NEUT % 61 % (31-73); PLATELET COUNT 184 x10^3/uL (140-400); RED BLOOD COUNT 3.58 x10^6/uL (4.30-5.70); RED CELL DISTRIBUTION WIDTH 27.6 % (11.5-14.5); WHITE BLOOD COUNT 4.4 x10^3/uL (4.0-11.0)
[2017-02-15 08:09] LABS: ALBUMIN 2.5 g/dL (3.4-5.0); ALBUMIN/GLOBULIN RATIO 0.8 (1.0-1.7); CALCIUM 7.9 mg/dL (8.5-10.1); CREATININE 0.7 mg/dL (0.7-1.3); GFR 106.7; MAGNESIUM 1.8 mg/dL (1.8-2.4); POTASSIUM 3.5 mmol/L (3.5-5.1); TOTAL BILIRUBIN 0.3 mg/dL (0.2-1.0); TOTAL PROTEIN 5.6 g/dL (6.4-8.2)
--- NOTE | 2017-02-15 08:16 | PDOC3 ---
IM DISCHARGE & PROGRESS NOTES Date of Admission Date of Admission Date of Admission: Feb 09, 2017 at 05:00 Date of Discharge Date of Discharge 02/15/17 Primary Diagnosis Primary Diagnosis Assessment 1. Acute upper gastrointestinal bleeding SIRS no sepsis s/p EGD 02/10 with exudative esophagitis, multiple petechiae, small HH. 2. Acute renal failure DESTINY VMN (diarrhea/GIB) no CKD 3. Hypokalemia. 4. Diarrhea. Previous workup 2016 negative 5. Leukocytosis reactive 6. Acute metabolic encephalopathy. 7. Osteoarthritis. 8. History of lumbar spinal stenosis with radiculopathy. 9. Hypertension. 10. History of cardiac arrhythmia. 11. Gastroesophageal reflux disease. 12. severe weakness and debility 13. 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 Procedures Procedures PROCEDURE Procedure EGD Ind: melena/anemia Meds: per anesthesia. E-exudative esophagitis throughout. Multiple petechiae. G-small HH D-Normal to second portion. Camille. well. IMP: severe esophagitis, similar to last time. Was taking PPI at home?? small HH REC: clears PPI, po when eating and chronic. MAURICE ZAPATA MD Feb 10, 2017 15:57 SIGNED BY: MAURICE ZAPATA MD DATE: 02/10/17 1559 Labs Labs Laboratory Tests Test 02/13/17 03:31 02/13/17 04:20 02/14/17 03:30 White Blood Count 5.0x10^3/uL (4.0-11.0) 4.8x10^3/uL (4.0-11.0) Red Blood Count 3.69x10^6/uL (4.30-5.70) 3.45x10^6/uL (4.30-5.70) Hemoglobin 8.9g/dL (13.0-17.5) 8.3g/dL (13.0-17.5) Hematocrit 28.0% (39.0-53.0) 25.9% (39.0-53.0) Mean Corpuscular Volume 76fL (79-100) 75fL (79-100) Mean Corpuscular Hemoglobin 24pg (25-35) 24pg (25-35) Mean Corpuscular Hemoglobin Concent 32g/dL (31-37) 32g/dL (31-37) Red Cell Distribution Width 27.0% (11.5-14.5) 27.5% (11.5-14.5) Platelet Count 161x10^3/uL (140-400) 169x10^3/uL (140-400) Neutrophils (%) (Auto) 62% (31-73) 60% (31-73) Lymphocytes (%) (Auto) 22% (24-48) 24% (24-48) Monocytes (%) (Auto) 11% (0-9) 12% (0-9) Eosinophils (%) (Auto) 4% (0-3) 4% (0-3) Basophils (%) (Auto) 1% (0-3) 0% (0-3) Neutrophils # (Auto) 3.1x10^3uL (1.8-7.7) 2.9x10^3uL (1.8-7.7) Lymphocytes # (Auto) 1.1x10^3/uL (1.0-4.8) 1.2x10^3/uL (1.0-4.8) Monocytes # (Auto) 0.5x10^3/uL (0.0-1.1) 0.6x10^3/uL (0.0-1.1) Eosinophils # (Auto) 0.2x10^3/uL (0.0-0.7) 0.2x10^3/uL (0.0-0.7) Basophils # (Auto) 0.0x10^3/uL (0.0-0.2) 0.0x10^3/uL (0.0-0.2) Sodium Level 140mmol/L (136-145) 140mmol/L (136-145) Potassium Level 3.4mmol/L (3.5-5.1) 4.0mmol/L (3.5-5.1) Chloride Level 108mmol/L (98-107) 110mmol/L (98-107) Carbon Dioxide Level 24mmol/L (21-32) 25mmol/L (21-32) Anion Gap 8 (6-14) 5 (6-14) Blood Urea Nitrogen 7mg/dL (8-26) 7mg/dL (8-26) Creatinine 0.6mg/dL (0.7-1.3) 0.7mg/dL (0.7-1.3) Estimated GFR (Cockcroft-Gault) 127.4 106.7 BUN/Creatinine Ratio 12 (6-20) 10 (6-20) Glucose Level 90mg/dL (70-99) 107mg/dL (70-99) Lactic Acid Level 0.8mmol/L (0.4-2.0) 0.8mmol/L (0.4-2.0) Calcium Level 7.8mg/dL (8.5-10.1) 7.8mg/dL (8.5-10.1) Total Bilirubin 0.5mg/dL (0.2-1.0) 0.3mg/dL (0.2-1.0) Aspartate Amino Transf (AST/SGOT) 14U/L (15-37) 11U/L (15-37) Alanine Aminotransferase (ALT/SGPT) 14U/L (16-63) 12U/L (16-63) Alkaline Phosphatase 66U/L (46-116) 67U/L (46-116) Total Protein 5.5g/dL (6.4-8.2) 5.2g/dL (6.4-8.2) Albumin 2.5g/dL (3.4-5.0) 2.3g/dL (3.4-5.0) Albumin/Globulin Ratio 0.8 (1.0-1.7) 0.8 (1.0-1.7) Magnesium Level 1.8mg/dL (1.8-2.4) 1.7mg/dL (1.8-2.4) Medications Medications Medications reviewed and reconciled for discharge. Brief hospital course Brief hospital course This 86 year old male who presented with acute GIB and ARF was admitted. The following is a summary of his treatment: acute GIB with SIRS stool OB + IV protonix GI consult IVF EGD-exudative esophagitis, multiple petechiae, small HH, duod normal 02/09 continue po PPI ARF DESTINY due to VMN (GIB/diarrhea) with no CKD renal consult IVF Admit BUN 81 / 11 K 3.0 3.5 Cr 1.4 0.7 Na 145 140 Mg 2.0 1.8 K replacement per protocol replace Mg 02/14 diarrhea restarted Home KCL 20meq BID initiated 02/15 Aldactone 25mg home med resumed 02/15 diarrhea chronic work up neg 2016 GI following start questran bid lomotil prn leukocytosis Admit WBC 18.2 02/15 4.4 ID consult reactive-SIRS, not sepsis acute metabolic encephalopathy with acute renal failure improving anemia acute on chronic due to GIB Admit Hgb 8.8 02/10 6.8-2 unit [facility] 02/15 8.6 2unit [facility] 02/10 Hgb trending down again severe weakness and debility PTOT Dr. Neal consult DVT/GI prophylaxis SCD/KRISH PPI For more details regarding the past history, family history, social history, surgical history and other details, please refer to History and Physical. He will be discharged to [facility]. Please see discharge orders. Subjective no diarrhea today, several occurrences yesterday small amounts diarrhea Objective alert appropriate Vitals Vital Signs Date Time Temp Pulse Resp B/P Pulse Ox O2 Delivery O2 Flow Rate FiO2 02/15/17 07:00 97.7 66 20 142/66 95 Room Air 97.7 Physical Exam General appearance - alert, chronically ill appearing, and in no distress Mental Status - alert, oriented to person, place, and time, affect appropriate to mood Head - normal Chest - clear to auscultation, no wheezes, rales or rhonchi, symmetric air entry Heart - S1 and S2 normal Abdomen - soft, nontender, nondistended, BS + Neurological - no acute focal neurological deficits noted, weakness generalized Musculoskeletal - no muscular tenderness noted Extremities - no pedal edema Skin - warm and dry Medications Medications reviewed. Allergy Allergies Coded Allergies Type Severity Reaction Last Updated Verified No Known Drug Allergies 02/10/17 No Follow up Admit to Dr. Nuñez Disposition: Halfway facility (PT OT ) Comments Discharge Management - 35 minutes. For other details please refer to discharge instructions [facility] [employer] February 15, 2017 08:16
--- NOTE | 2017-02-15 08:18 | DISCH ---
DISCHARGE DISCHARGE DATE: February 15, 2017 FINAL DIAGNOSIS Problems Medical Problems: (1) Acute renal failure Status: Acute (2) GI bleed Status: Acute (3) Hypokalemia Status: Acute (4) Peptic ulcer disease Status: Acute (5) Syncope Status: Acute CONDITION ON DISCHARGE: Stable SNF STAY <30 DAYS: Yes (PT OT eval and treat) POST DISCHARGE ORDERS ACTIVITY ORDERS: Activity as tolerated WEIGHT BEARING STATUS: Full weight bearing DIET AFTER DISCHARGE: Cardiac CHECKS AFTER DISCHARGE CHECKS AFTER DISCHARGE: Weigh Yourself Daily COMMENTS: VS per routine FOLLOW-UP PHYSICIAN FOLLOW-UP: Admit to Dr. Nuñez LAB ORDERS FOR FOLLOW-UP: CBC with diff, CMP, Prealbumin in AM after admit TREATMENT/EQUIPMENT ORDERS ADAPTIVE EQUIPMENT NEEDED: Wheelchair CH[facility]OMA [facility] APRN February 15, 2017 08:18
[2017-02-15] MEDS ORDERED: PANT40TA5 PO (08:34)
[2017-02-15] MEDS ORDERED: CHOL4POW11 PO (08:34)
[2017-02-15] MEDS ORDERED: MAGN400T3 PO (08:34)
[2017-02-15] MEDS ORDERED: Loperamide Hcl PO (08:34)
--- NOTE | 2017-02-15 09:19 | PDOC ---
PROGRESS NOTES Subjective Subjective No new complaints. Objective Objective Vital Signs Date Time Temp Pulse Resp B/P Pulse Ox O2 Delivery O2 Flow Rate FiO2 02/15/17 07:00 97.7 66 20 142/66 95 Room Air 97.7 Intake and Output 02/15/17 07:00 Intake Total 1080 ml Output Total 1207 ml Balance -127 ml Intake Oral 1080 ml Output Urine Total 1200 ml Stool Total 7 ml # Voids 3 Physical Exam Physical Exam He is supine in bed,alert and comfortable and he gets up with standby assistance and he walked for 20' with roller walker with physical therapy yesterday. Assessment Assessment Problems Medical Problems: (1) Acute renal failure Status: Acute (2) GI bleed Status: Acute (3) Hypokalemia Status: Acute (4) Peptic ulcer disease Status: Acute (5) Syncope Status: Acute Plan Plan of Care Agree with plans for transfer to SNF when medically stable. Comment Review of Relevant I have reviewed the following items kathy (where applicable) has been applied. Labs Laboratory Tests Test 02/14/17 03:30 02/15/17 06:15 White Blood Count 4.8x10^3/uL (4.0-11.0) 4.4x10^3/uL (4.0-11.0) Red Blood Count 3.45x10^6/uL (4.30-5.70) 3.58x10^6/uL (4.30-5.70) Hemoglobin 8.3g/dL (13.0-17.5) 8.6g/dL (13.0-17.5) Hematocrit 25.9% (39.0-53.0) 27.2% (39.0-53.0) Mean Corpuscular Volume 75fL (79-100) 76fL (79-100) Mean Corpuscular Hemoglobin 24pg (25-35) 24pg (25-35) Mean Corpuscular Hemoglobin Concent 32g/dL (31-37) 31g/dL (31-37) Red Cell Distribution Width 27.5% (11.5-14.5) 27.6% (11.5-14.5) Platelet Count 169x10^3/uL (140-400) 184x10^3/uL (140-400) Neutrophils (%) (Auto) 60% (31-73) 61% (31-73) Lymphocytes (%) (Auto) 24% (24-48) 21% (24-48) Monocytes (%) (Auto) 12% (0-9) 13% (0-9) Eosinophils (%) (Auto) 4% (0-3) 4% (0-3) Basophils (%) (Auto) 0% (0-3) 1% (0-3) Neutrophils # (Auto) 2.9x10^3uL (1.8-7.7) 2.7x10^3uL (1.8-7.7) Lymphocytes # (Auto) 1.2x10^3/uL (1.0-4.8) 0.9x10^3/uL (1.0-4.8) Monocytes # (Auto) 0.6x10^3/uL (0.0-1.1) 0.6x10^3/uL (0.0-1.1) Eosinophils # (Auto) 0.2x10^3/uL (0.0-0.7) 0.2x10^3/uL (0.0-0.7) Basophils # (Auto) 0.0x10^3/uL (0.0-0.2) 0.0x10^3/uL (0.0-0.2) Sodium Level 140mmol/L (136-145) 141mmol/L (136-145) Potassium Level 4.0mmol/L (3.5-5.1) 3.5mmol/L (3.5-5.1) Chloride Level 110mmol/L (98-107) 108mmol/L (98-107) Carbon Dioxide Level 25mmol/L (21-32) 26mmol/L (21-32) Anion Gap 5 (6-14) 7 (6-14) Blood Urea Nitrogen 7mg/dL (8-26) 11mg/dL (8-26) Creatinine 0.7mg/dL (0.7-1.3) 0.7mg/dL (0.7-1.3) Estimated GFR (Cockcroft-Gault) 106.7 106.7 BUN/Creatinine Ratio 10 (6-20) 16 (6-20) Glucose Level 107mg/dL (70-99) 85mg/dL (70-99) Lactic Acid Level 0.8mmol/L (0.4-2.0) Calcium Level 7.8mg/dL (8.5-10.1) 7.9mg/dL (8.5-10.1) Magnesium Level 1.7mg/dL (1.8-2.4) 1.8mg/dL (1.8-2.4) Total Bilirubin 0.3mg/dL (0.2-1.0) 0.3mg/dL (0.2-1.0) Aspartate Amino Transf (AST/SGOT) 11U/L (15-37) 17U/L (15-37) Alanine Aminotransferase (ALT/SGPT) 12U/L (16-63) 14U/L (16-63) Alkaline Phosphatase 67U/L (46-116) 64U/L (46-116) Total Protein 5.2g/dL (6.4-8.2) 5.6g/dL (6.4-8.2) Albumin 2.3g/dL (3.4-5.0) 2.5g/dL (3.4-5.0) Albumin/Globulin Ratio 0.8 (1.0-1.7) 0.8 (1.0-1.7) Laboratory Tests Test 02/15/17 06:15 White Blood Count 4.4x10^3/uL (4.0-11.0) Red Blood Count 3.58x10^6/uL (4.30-5.70) Hemoglobin 8.6g/dL (13.0-17.5) Hematocrit 27.2% (39.0-53.0) Mean Corpuscular Volume 76fL (79-100) Mean Corpuscular Hemoglobin 24pg (25-35) Mean Corpuscular Hemoglobin Concent 31g/dL (31-37) Red Cell Distribution Width 27.6% (11.5-14.5) Platelet Count 184x10^3/uL (140-400) Neutrophils (%) (Auto) 61% (31-73) Lymphocytes (%) (Auto) 21% (24-48) Monocytes (%) (Auto) 13% (0-9) Eosinophils (%) (Auto) 4% (0-3) Basophils (%) (Auto) 1% (0-3) Neutrophils # (Auto) 2.7x10^3uL (1.8-7.7) Lymphocytes # (Auto) 0.9x10^3/uL (1.0-4.8) Monocytes # (Auto) 0.6x10^3/uL (0.0-1.1) Eosinophils # (Auto) 0.2x10^3/uL (0.0-0.7) Basophils # (Auto) 0.0x10^3/uL (0.0-0.2) Sodium Level 141mmol/L (136-145) Potassium Level 3.5mmol/L (3.5-5.1) Chloride Level 108mmol/L (98-107) Carbon Dioxide Level 26mmol/L (21-32) Anion Gap 7 (6-14) Blood Urea Nitrogen 11mg/dL (8-26) Creatinine 0.7mg/dL (0.7-1.3) Estimated GFR (Cockcroft-Gault) 106.7 BUN/Creatinine Ratio 16 (6-20) Glucose Level 85mg/dL (70-99) Calcium Level 7.9mg/dL (8.5-10.1) Magnesium Level 1.8mg/dL (1.8-2.4) Total Bilirubin 0.3mg/dL (0.2-1.0) Aspartate Amino Transf (AST/SGOT) 17U/L (15-37) Alanine Aminotransferase (ALT/SGPT) 14U/L (16-63) Alkaline Phosphatase 64U/L (46-116) Total Protein 5.6g/dL (6.4-8.2) Albumin 2.5g/dL (3.4-5.0) Albumin/Globulin Ratio 0.8 (1.0-1.7) Medications Current Medications Pantoprazole Sodium 40 mg 40 mg 1X ONCE IVP Last administered on 02/09/17 03: 58; Start 02/09/17 at 04:00; Stop 02/09/17 at 04:01; Status DC Sodium Chloride 500 ml @ 500 mls/hr 1X ONCE IV Last administered on 03:52; Start 02/09/17 at 03:45; Stop 02/09/17 at 04:44; Status DC Pantoprazole Sodium/Sodium Chloride (Protonix Iv/Iv Sodium Chloride 0.9% 100ml) 100 ml @ 10 mls/hr 1X ONCE IV Last administered on 02/09/17 05:53; Start at 05:45; Stop 02/09/17 at 10:32; Status DC Ondansetron HCl (Zofran) 4 mg PRN Q8HRS PRN IV NAUSEA/VOMITING; Start 02/09/17 at 05:45; Stop 02/10/17 at 05:44; Status DC Fentanyl Citrate (Fentanyl 2ml Vial) 50 mcg PRN Q2HR PRN IV PAIN; Start at 05:45; Stop 02/10/17 at 05:44; Status DC Acetaminophen 650 mg 650 mg PRN Q4HRS PRN PO FEVER; Start 02/09/17 at 05:45; Stop 02/10/17 at 05:44; Status DC Potassium Chloride/Dextrose/ Sod Cl 1,000 ml @ 75 mls/hr 1X ONCE IV Last administered on 02/09/17 05:42; Start 02/09/17 at 05:45; Stop 02/09/17 at 08:59 ; Status DC Potassium Chloride/Sodium Chloride (KCl 20 Meq-NS 1,000 ml Iv Soln) 1,000 ml @ 125 mls/hr Q8H IV ; Start 02/09/17 at 09:00; Stop 02/09/17 at 09:00; Status DC Fentanyl Citrate 50 mcg 50 mcg PRN Q2HR PRN IV PAIN; Start 02/09/17 at 08:30 Potassium Chloride 100 ml @ 100 mls/hr Q1H IV ; Start 02/09/17 at 09:00; Stop 02/09/17 at 09:00; Status DC Magnesium Sulfate/ Dextrose 50 ml @ 25 mls/hr PRN DAILY PRN IV for Mag < 1.7 on am labs; Start 02/09/17 at 09:00; Status UNV Potassium Chloride 50 ml @ 50 mls/hr PRN Q6HRS PRN IV For K < 3.7; Start at 09:00; Stop 02/11/17 at 21:10; Status DC Potassium Chloride 50 ml @ 50 mls/hr PRN Q2HR PRN IV total of 40mEq for K < 3.5; Start 02/09/17 at 09:00; Stop 02/11/17 at 21:11; Status DC Magnesium Sulfate/ Dextrose 50 ml @ 25 mls/hr PRN DAILY PRN IV for Mag < 1.7 on am labs Last administered on 02/12/17 09:41; Start 02/09/17 at 09:00; Stop 02/13/17 at 12:58; Status DC Potassium Chloride (KCl Premix 20meq) 50 ml @ 50 mls/hr Q2H IV ; Start 02/09/17 at 10:00; Stop 02/09/17 at 10:29; Status DC Pantoprazole Sodium 40 mg 40 mg DAILYAC IVP ; Start 02/10/17 at 07:30; Stop at 07:30; Status DC Sodium Bicarbonate 100 meq/Sterile Water 1,100 ml @ 100 mls/hr Q11H IV Last administered on 02/09/17 21:31; Start 02/09/17 at 10:15; Stop 02/10/17 at 07:41 ; Status DC Potassium Chloride 100 ml @ 100 mls/hr Q1H IV ; Start 02/09/17 at 10:29; Stop 02/09/17 at 14:28; Status Cancel Potassium Chloride (KCl Premix 10meq) 100 ml @ 100 mls/hr Q1H IV Last administered on 02/09/17 15:02; Start 02/09/17 at 11:00; Stop 02/09/17 at 14:59 ; Status DC Pantoprazole Sodium 40 mg 40 mg BID IVP Last administered on 02/11/17 07:06; Start 02/09/17 at 21:00; Stop 02/11/17 at 14:31; Status DC Lactated Ringer's 1,000 ml @ 50 mls/hr Q20H IV Last administered on 02/10/17 14:22; Start 02/10/17 at 07:00; Stop 02/10/17 at 18:59; Status DC Potassium Chloride 100 ml @ 100 mls/hr Q1H IV Last administered on 02/09/17 22:31; Start 02/09/17 at 18:45; Stop 02/09/17 at 22:44; Status DC Potassium Chloride 100 ml @ 100 mls/hr Q1H IV ; Start 02/10/17 at 09:00; Stop 02/10/17 at 12:59; Status DC Potassium Phosphate/Sodium Chloride (Potassium Phosphate/Iv Sodium Chloride 0.9 % 250ml) 253.0333 ml @ 126.... Q2H IV Last administered on 02/10/17 22:13; Start 02/10/17 at 14:00; Stop 02/10/17 at 19:59; Status DC Midazolam HCl (Versed) 2 mg PRN 1X PRN IV PRIOR TO PROCEDURE; Start 02/10/17 at 14:30; Stop 02/11/17 at 14:29; Status DC Fentanyl Citrate (Fentanyl 2ml Vial) 25 mcg PRN Q5MIN PRN IV X 2 DOSES FOR PAIN ; Start 02/10/17 at 14:30; Stop 02/11/17 at 14:29; Status DC Fentanyl Citrate 50 mcg 50 mcg PRN Q5MIN PRN IV X 2 DOSES FOR PAIN; Start 02/10 at 14:30; Stop 02/11/17 at 14:29; Status DC Lactated Ringer's (Iv Lactated Ringers) 1,000 ml @ 125 mls/hr Q8H IV ; Start at 14:19; Stop 02/11/17 at 02:18; Status DC Lidocaine HCl 2 ml 2 ml 1X PRN PRN ID IV START; Start 02/10/17 at 14:30; Stop 02/11/17 at 14:29; Status DC Propofol (Diprivan) 20 ml @ As Directed STK-MED ONCE IV ; Start 02/10/17 at 15: 35; Stop 02/10/17 at 15:36; Status DC Lidocaine HCl 5 ml 5 ml STK-MED ONCE .ROUTE ; Start 02/10/17 at 15:35; Stop at 15:36; Status DC Potassium Chloride 100 ml @ 100 mls/hr Q1H IV Last administered on 02/11/17 10:25; Start 02/11/17 at 06:00; Stop 02/11/17 at 09:59; Status DC Potassium Chloride/Sodium Chloride (KCl 40 Meq-NS 1,000 ml Iv Soln) 1,000 ml @ 80 mls/hr [id number] IV Last administered on 02/15/17 01:27; Start 02/11/17 at 10: 30 Pantoprazole Sodium 40 mg 40 mg BIDAC PO Last administered on 02/15/17 07:30; Start 02/11/17 at 16:30 Potassium Chloride 100 ml @ 100 mls/hr Q1H IV Last administered on 02/11/17 22:58; Start 02/11/17 at 21:30; Stop 02/11/17 at 23:29; Status DC Potassium Chloride 100 ml @ 100 mls/hr PRN Q1HR PRN IV K<3.7; Start 02/11/17 at 21:30 Potassium Chloride (KCl Premix 10meq) 100 ml @ 100 mls/hr PRN Q1HR PRN IV K < 3.5 Last administered on 02/13/17 11:59; Start 02/11/17 at 21:30 Potassium Chloride (Klor-Con) 20 meq 1X ONCE PO Last administered on 11:58; Start 02/13/17 at 11:15; Stop 02/13/17 at 11:19; Status DC Loperamide HCl 2 mg 2 mg PRN Q8HRS PRN PO DIARRHEA Last administered on 16:25; Start 02/13/17 at 12:45 Potassium Chloride (KCl Premix 10meq) 100 ml @ 100 mls/hr Q1H IV ; Start at 10:00; Stop 02/15/17 at 11:59 Active Scripts Active Questran Packet (Cholestyramine (With Sugar)) 4 Gm Powd.pack 4 Gm PO BID Pantoprazole Sodium 40 Mg Tablet.dr 40 Mg PO BIDAC [Loperamide Hcl] 2 MG Capsule 2 Mg PO PRN Q8HRS PRN Mapap (Acetaminophen) 500 Mg Tablet 500 Mg PO PRN Q6HRS PRN Reported Flonase Allergy Relief (Fluticasone Propionate) 9.9 Ml [place].susp 2 Sprays NS DAILY Simvastatin 20 Mg Tablet 1 Tab PO QHS Spironolactone 25 Mg Tablet 1 Tab PO DAILY Klor-Con M20 (Potassium Chloride) 20 Meq Tab.er.prt 1 Tab PO BID Fish Oil 1,000 Mg Capsule ([place]-3 Fatty Acids/Fish Oil) 1 Each Capsule 1 Each PO DAILY Centrum Multivitamin Tab Chew (Folic Acid/Mv,Fe,Other Min) 1 Each Tab.chew 1 Each PO DAILY Oxycontin (Oxycodone HCl) 20 Mg Tab.er.12h 1 Tab PO Q12HR Vitals/I & O Vital Sign - Last 24 Hours 02/14/17 02/14/17 02/14/17 02/14/17 10:45 15:00 19:00 20:00 Temp 97.6 97.7 98.5 97.6 97.7 98.5 Pulse 92 97 82 Resp 18 18 20 B/P 108/56 105/54 100/56 Pulse Ox 99 95 97 O2 Delivery Room Air Room Air Room Air Room Air 02/14/17 02/15/17 02/15/17 23:00 03:00 07:00 Temp 98.8 98.6 97.7 98.8 98.6 97.7 Pulse 78 74 66 Resp 20 20 20 B/P 98/65 126/63 142/66 Pulse Ox 97 97 95 O2 Delivery Room Air Room Air Room Air Intake and Output 02/14/17 02/14/17 02/15/17 15:00 23:00 07:00 Intake Total 680 ml 200 ml 200 ml Output Total 207 ml 1000 ml Balance 680 ml -7 ml -800 ml NEPTALI VICK MD February 15, 2017 09:19
[2017-02-15] MEDS: POTASSIUM CHLORIDE 10MEQ 100 ML IV SCH ×2 (09:26→10:50)
[2017-02-15 11:02] VITALS: BP 121/62
--- NOTE | 2017-02-15 11:29 | PDOC ---
Subjective: Subjective: Says eating okay, denies diarrhea. Objective: Objective: Per RN - possible DC today. Vital Signs: Vital Signs Date Time Temp Pulse Resp B/P Pulse Ox O2 Delivery O2 Flow Rate FiO2 02/15/17 11:02 97.7 89 20 121/62 99 Room Air 97.7 Labs: Laboratory Tests Test 02/15/17 06:15 White Blood Count 4.4x10^3/uL Red Blood Count 3.58x10^6/uL Hemoglobin 8.6g/dL Hematocrit 27.2% Mean Corpuscular Volume 76fL Mean Corpuscular Hemoglobin 24pg Mean Corpuscular Hemoglobin Concent 31g/dL Red Cell Distribution Width 27.6% Platelet Count 184x10^3/uL Neutrophils (%) (Auto) 61% Lymphocytes (%) (Auto) 21% Monocytes (%) (Auto) 13% Eosinophils (%) (Auto) 4% Basophils (%) (Auto) 1% Neutrophils # (Auto) 2.7x10^3uL Lymphocytes # (Auto) 0.9x10^3/uL Monocytes # (Auto) 0.6x10^3/uL Eosinophils # (Auto) 0.2x10^3/uL Basophils # (Auto) 0.0x10^3/uL Sodium Level 141mmol/L Potassium Level 3.5mmol/L Chloride Level 108mmol/L Carbon Dioxide Level 26mmol/L Anion Gap 7 Blood Urea Nitrogen 11mg/dL Creatinine 0.7mg/dL Estimated GFR (Cockcroft-Gault) 106.7 BUN/Creatinine Ratio 16 Glucose Level 85mg/dL Calcium Level 7.9mg/dL Magnesium Level 1.8mg/dL Total Bilirubin 0.3mg/dL Aspartate Amino Transf (AST/SGOT) 17U/L Alanine Aminotransferase (ALT/SGPT) 14U/L Alkaline Phosphatase 64U/L Total Protein 5.6g/dL Albumin 2.5g/dL Albumin/Globulin Ratio 0.8 PE: GEN: NAD LUNGS: CTAB HEART: RRR ABD: S/ND/NT NEURO/PSYCH: A & O 3 A/P: Severe esophagitis -on PO PPI BID -Hgb stable -- Possible DC today - okay per GI. Chronic PPI. AMADOU ROSE February 15, 2017 11:29
== END 2017-02-15 14:25 | DRG 380 ==
LOC: ER 03:33 → 1 WEST ICU 05:00 → 5 SOUTH 02-10 20:09
PROVIDERS: ADMIT Internal Medicine; ATTEND Internal Medicine
PROC: 30233N1 Transfusion of Nonautologous Red Blood Cells into Peripheral Vein, Percutaneous Approach (ICD-10-PCS; 2017-02-10)
PROC: 0DJ08ZZ Inspection of Upper Intestinal Tract, Via Natural or Artificial Opening Endoscopic (ICD-10-PCS; principal; 2017-02-10 15:00)
DX: K22.10 Ulcer of esophagus without bleeding (principal); G93.41 Metabolic encephalopathy; N17.0 Acute kidney failure with tubular necrosis; E43 Unspecified severe protein-calorie malnutrition; D62 Acute posthemorrhagic anemia; R65.10 Systemic inflammatory response syndrome (SIRS) of non-infectious origin without acute organ dysfunction; N17.9 Acute kidney failure, unspecified; K20.9 Esophagitis, unspecified; D64.9 Anemia, unspecified; E78.5 Hyperlipidemia, unspecified; E87.6 Hypokalemia; G62.9 Polyneuropathy, unspecified; I12.9 Hypertensive chronic kidney disease with stage 1 through stage 4 chronic kidney disease, or unspecified chronic kidney disease; I27.2 Other secondary pulmonary hypertension; I48.91 Unspecified atrial fibrillation; J30.9 Allergic rhinitis, unspecified; K21.0 Gastro-esophageal reflux disease with esophagitis; K27.9 Peptic ulcer, site unspecified, unspecified as acute or chronic, without hemorrhage or perforation; M17.0 Bilateral primary osteoarthritis of knee; M40.204 Unspecified kyphosis, thoracic region; N18.9 Chronic kidney disease, unspecified; Z85.828 Personal history of other malignant neoplasm of skin; Z86.79 Personal history of other diseases of the circulatory system; G89.29 Other chronic pain
CPT/HCPCS: 36415; 71010; 80048; 80053; 80076; 81001; 82274; 83605; 83735; 84100; 84132; 84145; 85007; 85014; 85018; 85027; 85610; 85730; 86850; 86900; 86901; 86920; 87641; 93005; 96365; 96368; 96375; C9113; J2704; J3480; J7040; J7050; J7060; J7120; P9016; 97110; 97116; 99285-25; J7030

== ENCOUNTER 2017-02-24 06:54 | Inpatient (IN) | payer MEDICARE, BC ==
[2017-02-24] VITALS (14 sets, daily range): BP systolic 92–147; BP diastolic 42–77
[~2017-02-24] VITALS: Ht 165.1 cm; Wt 71.7 kg
[~2017-02-24 06:54] MED LIST changes: +CHOL4POW11 PO; +Loperamide Hcl PO; +MAGN400T3 PO; +PANT40TA5 PO
[2017-02-24] MEDS ORDERED: PANTOPRAZOLE SODIUM IV 80 MG in IV NORMAL SALINE 100ML 100 ML IV SCH (07:30)
[2017-02-24] MEDS ORDERED: PANTOPRAZOLE IV PUSH 40 MG VIAL. IVP ONE (07:30)
[2017-02-24] MEDS ORDERED: PANTOPRAZOLE SODIUM IV 80 MG in IV NORMAL SALINE 100ML 100 ML IV ONE (07:30)
--- NOTE | 2017-02-24 07:33 | PHYS DOC ---
Past Medical History Past Medical History: A-Fib, Arthritis, Hypertension, Other Additional Past Medical Histor: CHRONIC BACK PAIN, GI bleed Past Surgical History: Other Additional Past Surgical Histo: BACK SURGERY Alcohol Use: None Drug Use: None Adult General Chief Complaint Chief Complaint: ABNORMAL LABS HPI HPI Patient is a 86 year old male who presents with anemia. Patient with known history of GI bleed, recently discharged from the hospital after blood transfusions. Presents with decreasing hemoglobin. Today was 6.9. Patient appears pale but denies any new symptoms such as increased shortness of breath, increased weakness or black tarry stools. Patient is currently residing at [facility]. Review of Systems Review of Systems Constitutional: Denies fever or chills [] Eyes: Denies change in visual acuity, redness, or eye pain [] HENT: Denies nasal congestion or sore throat [] Respiratory: Denies cough or shortness of breath [] Cardiovascular: Denies chest pain GI: Denies abdominal pain, nausea, vomiting, bloody stools or diarrhea [] : Denies dysuria or hematuria [] Musculoskeletal: Denies back pain or joint pain [] Integument: Denies rash or skin lesions [] Neurologic: Denies headache, focal weakness or sensory changes [] Current Medications Current Medications Current Medications Medications (Trade) Dose Ordered Sig/Azalia Start Time Stop Time Status Last Admin Dose Admin Pantoprazole Sodium (Protonix Vial) 80 mg 1X ONCE 02/24/17 07:30 02/24/17 07:31 Pantoprazole Sodium 80 mg/ Sodium Chloride 100 ml @ 10 mls/hr 1X ONCE 02/24/17 07:30 02/24/17 17:29 UNV Allergies Allergies Allergies Coded Allergies Type Severity Reaction Last Updated Verified No Known Drug Allergies 02/10/17 No Physical Exam Physical Exam Constitutional: Well developed, well nourished, no acute distress, pale HENT: Normocephalic, atraumatic, bilateral external ears normal, oropharynx moist, no oral exudates, nose normal. [] Eyes: PERRLA, EOMI, conjunctiva normal, no discharge. [] Neck: Normal range of motion, no tenderness, supple, no stridor. [] Cardiovascular:Heart rate regular with regular rhythm, no murmur [] Lungs & Thorax: Bilateral breath sounds clear to auscultation, no wheeze or crackles Abdomen: Bowel sounds normal, soft, no tenderness, no masses, no pulsatile masses. [] Skin: Warm, dry, no erythema, no rash. [] Back: No tenderness, no CVA tenderness. [] Extremities: No tenderness, no cyanosis, no clubbing, ROM intact, no edema. [] Neurologic: Alert and oriented X 3, normal motor function, normal sensory function, no focal deficits noted. [] Psychologic: Affect normal, judgement normal, mood normal. [] Current Patient Data Vital Signs Vital Signs Date Time Temp Pulse Resp B/P (MAP) Pulse Ox O2 Delivery O2 Flow Rate FiO2 02/24/17 06:54 98.3 89 18 171/74 (106) 97 Room Air 98.3 EKG EKG [] Radiology/Procedures Radiology/Procedures [] Course & Med Decision Making Course & Med Decision Making Pertinent Labs and Imaging studies reviewed. (See chart for details) Patient with decreasing hemoglobin, recent GI bleed. 2 units PRBCs ordered per Dr. Cedillo, patient given Protonix bolus and drip. Admitted to [facility], consult for Dr. Jesus Alberto Brock. Dragon Disclaimer Dragon Disclaimer This electronic medical record was generated, in whole or in part, using a voice recognition dictation system. Departure Departure Impression: Primary Impression: Anemia Additional Impression: GI bleed Disposition: ADMITTED INPATIENT Admitting Physician: Kasandra Cedillo Referrals: KASANDRA CEDILLO MD (PCP) Problem Qualifiers INDIRA MONREAL MD February 24, 2017 07:33
--- NOTE | 2017-02-24 07:49 | ACF ---
Admission Forms Criteria ANEMIA Clinical Indications for Inpatient Care (Place 'X' for any and all applicable criteria) Ongoing inpatient care may be needed for anemia with 1 or more of the following (1)(2)(3)(4)(18)(37): [X]I. Severe signs or symptoms unresponsive to transfusion or volume replacement, including ANY ONE of the following: []a) Heart failure []b) Chest pain []c) Myocardial ischemia []d) Exertional dyspnea []e) Syncope []f) Acute peripheral ischemia (eg, pulseless, cool, mottled, or cyanotic extremity) [X]g) Other severe signs or symptoms []II. Cognitive impairment []III. Active hemorrhage []IV.Active hemolysis with rapidly progressive anemia []V. Hemodynamic instability Extended stay beyond goal length of stay for the primary condition may be needed until ALL of the following are present (1)(2)(3)(4): []a) Hemodynamic stability []b) Any active blood loss controlled []c) Severe signs or symptoms resolved []d) Mental status normal or at baseline []e) Stable hemoglobin after transfusion []f) Any underlying disorder or complications of treatment controlled The original [employer] content created by [employer] has been revised. The portions of the content which have been revised are identified through the use of italic text or in bold, and [facility] has neither reviewed nor approved the modified material. All other unmodified content is copyright [employer]. Please see references footnoted in the original [place] [facility] edition 2016 Admission Criteria Met?: Yes KARI NGUYEN February 24, 2017 07:49
[2017-02-24] MEDS ORDERED: ACETAMINOPHEN 500 MG TABLET PO PRN (09:00)
--- NOTE | 2017-02-24 09:08 | PDOC1 ---
CHIOMA CH LICENSED STAFF MFT 02/24/17 0908: HISTORY AND PHYSICAL Chief Complaint Chief Complaint This 86 year old male has been admitted with a chief complaint of anemia. He was recently discharged from [facility] to [facility] after treatment for acute/ chronic blood loss due to GIB. An EGD was performed and reflux esoph as well as gastritis noted. His PPI was increased to BID. He was seen yesterday by Dr. Cedillo. Jace's Hgb was trending down since his admit to the SNU. Yesterday it was 7.3 and this morning it was 6.9. He was sent to the ED for evaluation. He reports he is feeling fine, has not noted any black stool or overt bleeding. He is admitted for further evaluation and treatment. Problem List Problems Medical Problems: (1) Anemia Status: Acute (2) GI bleed Status: Acute Past Medical History Cardiovascular: HTN, Hyperlipidemia, Pulmonary hypertension, Other GI: GERD Heme/Onc: Anemia NOS Musculoskeletal: low back pain, Other Renal/: Urinary Incontinence Past Surgical History Past Surgical History: Other Review of Symptoms Review of Symptoms A 14 point ROS was completed with the following noted as positive: Other systems reviewed and negative. Medications Current Medications Pantoprazole Sodium (Protonix Vial) 80 mg 1X ONCE IVP Last administered on 07:41; Start 02/24/17 at 07:30; Stop 02/24/17 at 07:31; Status DC Pantoprazole Sodium 80 mg/ Sodium Chloride 100 ml @ 10 mls/hr 1X ONCE IV ; Start 02/24/17 at 07:30; Stop 02/24/17 at 17:29; Status UNV Pantoprazole Sodium 80 mg/ Sodium Chloride 100 ml @ 10 mls/hr Q10H IV Last administered on 02/24/17 07:49; Start 02/24/17 at 07:30 Allergy Allergies Coded Allergies Type Severity Reaction Last Updated Verified No Known Drug Allergies 02/10/17 No Physical Exam Physical Exam General appearance - alert,well appearing, and in no distress and oriented to person, place, and time Mental Status - alert, oriented to person, place, and time, affect appropriate to mood Head - normal Chest - clear to auscultation, no wheezes, rales or rhonchi, symmetric air entry Heart - S1 and S2 normal Abdomen - soft, nontender, nondistended, no masses or organomegaly Neurological - alert and oriented Musculoskeletal - no muscular tenderness noted Extremities - no pedal edema Skin - warm and dry VTE Prophylaxis Ordered VTE Prophylaxis Devices: Yes VTE Pharmacological Prophylaxi: No Plan Plan IMPRESSION: 1. acute blood loss anemia with recent admit acute upper GI bleed with PRC infusion x 2 2. recent Acute upper gastrointestinal bleeding SIRS no sepsis s/p EGD 02/10 with exudative esophagitis, multiple petechiae, small HH. 3. severe weakness and debility 4. h/o Diarrhea. resolved with Questran bid 5. Osteoarthritis. 6. History of lumbar spinal stenosis with radiculopathy. 7. Hypertension. 8. History of cardiac arrhythmia. 9. Gastroesophageal reflux disease. 10. 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 KASANDRA CEDILLO MD 02/24/17 1102: HISTORY AND PHYSICAL Plan Plan D/w - may have AVMs.No further workup if he remains stable. The patient was seen and examined by me. Chart reviewed and plan of care formulated. Discussed with, reviewed and agree with FACTORY MANAGER's notes, plan of care and orders with modifications as necessary. For more details regarding further plans, please refer to the orders. CHIOMA CH APRN February 24, 2017 09:08 KASANDRA CEDILLO MD February 24, 2017 11:02
[2017-02-24] MEDS: FLUTICASONE 50MCG/NASAL SPRAY 16GM BOTTLE. NS SCH (09:30)
--- NOTE | 2017-02-24 10:02 | PDOC ---
Subjective: Subjective: 86 y/o male known to Dr. Brock/GI. Last consult 02/09/17. EGD and colonoscopy 05/2016: severe reflux (no Valles's), hiatal hernia, normal stomach (no H. 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 Last admission for black stool, anemia, heme positive stool. EGD 02/10/17: severe esophagitis and small hiatal hernia. Discharged on 02/15, was tolerating PO on PPI BID, Hgb 8.6 PCP noted drifting Hgb as outpt, 6.9 today w/ normal BUN. Per pt, has been feeling well, no obvious bleeding, reports 1 brown stool daily. No abd pain, no n/v, eating w/o issue. Has been made NPO and started on IV PPI BID. Objective: Vital Signs: Vital Signs Date Time Temp Pulse Resp B/P (MAP) Pulse Ox O2 Delivery O2 Flow Rate FiO2 02/24/17 08:30 80 18 137/62 (87) 96 Room Air 02/24/17 06:54 98.3 98.3 Labs: Reviewed. PE: GEN: NAD HEENT: Atraumatic, PERRL LUNGS: CTAB HEART: RRR ABD: NABS, S/ND/NT EXTREMITY: No edema SKIN: No rashes, no jaundice NEURO/PSYCH: A & O 3 A/P: Anemia -drifting Hgb, discharged at 8.2 on 02/15, now 6.9 -no obvious bleeding, feeling well H/o ulcerative esophagitis -EGD 02/10/17 -last discharged on PPI BID CRC screen -colonoscopy 2015 -- Is NPO on IV PPI - continue this until Dr. Brock sees. AMADOU ROSE February 24, 2017 10:02
[2017-02-24] MEDS: CHOLESTYRAMINE/ASPARTAME 4 GM PACKET PO SCH ×2 (12:22→21:41)
[2017-02-24] MEDS: POTASSIUM CHLORIDE 20 MEQ TABLET.ER. PO SCH ×2 (12:23→15:59)
[2017-02-24] MEDS: SPIRONOLACTONE 25 MG TABLET PO SCH (12:23)
[2017-02-24] MEDS: oxyCODONE ER 10 MG TAB.ER.12H PO SCH ×2 (12:23→20:27)
[2017-02-24] MEDS: OMEGA-3 FATTY ACIDS/FISH OIL 1,000 MG CAPSULE. PO SCH (12:23)
[2017-02-24] MEDS: MULTIVITAMIN with MINERAL TABLET. PO SCH (12:23)
--- NOTE | 2017-02-24 14:37 | PDOC1 ---
HISTORY AND PHYSICAL Chief Complaint Chief Complaint This 86 year old male has been admitted with a chief complaint of anemia. He was recently discharged from [facility] to [facility] after treatment for acute/ chronic blood loss due to GIB. An EGD was performed and reflux esoph as well as gastritis noted. His PPI was increased to BID. He was seen yesterday by Dr. Nuñez. Jace's Hgb was trending down since his admit to the SNU. Yesterday it was 7.3 and this morning it was 6.9. He was sent to the ED for evaluation. He reports he is feeling fine, has not noted any black stool or overt bleeding. He is admitted for further evaluation and treatment. 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 ) Past Family History PFH Brother - CHF Past Social History [facility] lives [facility] no h/o tobacco, ETOH or illicit drug use. Review of Symptoms Review of Symptoms A 14 point ROS was completed with the following noted as positive: per HPI Other systems reviewed and negative. Medications Medications reviewed and reconciled Allergy Allergies Coded Allergies Type Severity Reaction Last Updated Verified No Known Drug Allergies 02/10/17 No Physical Exam Physical Exam General appearance - alert, chronically ill appearing, and in no distress Mental Status - alert, oriented to person, place, and time, affect appropriate to mood Head - normal Chest - clear to auscultation, no wheezes, rales or rhonchi, symmetric air entry Heart - S1 and S2 normal Abdomen - soft, nontender, nondistended, no masses or organomegaly Neurological - no acute focal neurological deficit noted Musculoskeletal - no muscular tenderness noted, kyphosis + Extremities - no pedal edema Skin - warm and dry, pale VTE Prophylaxis Ordered VTE Prophylaxis Devices: Yes VTE Pharmacological Prophylaxi: No Plan Plan IMPRESSION: 1. acute blood loss anemia with recent admit acute upper GI bleed with PRC infusion x 2 2. recent Acute upper gastrointestinal bleeding SIRS no sepsis s/p EGD 02/10 with exudative esophagitis, multiple petechiae, small HH. 3. severe weakness and debility 4. h/o Diarrhea. resolved with Questran bid 5. Osteoarthritis. 6. History of lumbar spinal stenosis with radiculopathy. 7. Hypertension. 8. History of cardiac arrhythmia. 9. Gastroesophageal reflux disease. 10. 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 pulmonary HTN PLAN: anemia acute blood loss anemia Admit 6.9 PRC x 2 GI consult IV Protonix HTN continue home medications malnutrition monitor oral intake supplement. DVT/GI prophylaxis SCD/KRISH PPI D/w - may have AVMs.No further workup if he remains stable. The patient was seen and examined by me. Chart reviewed and plan of care formulated. Discussed with, reviewed and agree with MARKETING SUPPORT COORDINATOR's notes, plan of care and orders with modifications as necessary. For more details regarding further plans, please refer to the orders. CHIOMA CH VIOLIN TEACHER February 24, 2017 14:37
[2017-02-24] MEDS: PANTOPRAZOLE 40 MG TABLET.DR. PO SCH (15:58)
[2017-02-24] MEDS ORDERED: SIMVASTATIN 20 MG TABLET PO SCH (21:00)
[2017-02-25 03:00] VITALS: BP 105/57
[2017-02-25 05:54] LABS: BASO % 1 % (0-3); EOS % 3 % (0-3); HEMATOCRIT 31.3 % (39.0-53.0); HEMOGLOBIN 10.2 g/dL (13.0-17.5); LYMPH # 1.3 x10^3/uL (1.0-4.8); LYMPH % 27 % (24-48); MEAN CORPUSCULAR HEMOGLOBIN 25 pg (25-35); MEAN CORPUSCULAR HGB CONC 33 g/dL (31-37); MEAN CORPUSCULAR VOLUME 76 fL (79-100); MONO % 9 % (0-9); NEUT % 60 % (31-73); PLATELET COUNT 248 x10^3/uL (140-400); RED BLOOD COUNT 4.11 x10^6/uL (4.30-5.70); RED CELL DISTRIBUTION WIDTH 23.7 % (11.5-14.5); WHITE BLOOD COUNT 4.7 x10^3/uL (4.0-11.0)
[2017-02-25 06:10] LABS: CALCIUM 8.4 mg/dL (8.5-10.1); CREATININE 0.7 mg/dL (0.7-1.3); GFR 106.7; POTASSIUM 4.5 mmol/L (3.5-5.1)
[2017-02-25 06:39] LABS: ANISOCYTOSIS MOD; HYPOCHROMIA SLIGHT; PLT ESTIMATE ADEQUATE (ADEQUATE); POIKILOCYTOSIS SLIGHT; POLYCHROMASIA SLIGHT
[2017-02-25 07:00] VITALS: BP 146/85
--- NOTE | 2017-02-25 07:24 | PDOC3 ---
DIMACHIOMA PHOTO STUDIO ASSISTANT 02/25/17 0724: IM DISCHARGE & PROGRESS NOTES Date of Admission Date of Admission Date of Admission: February 24, 2017 at 07:17 Date of Discharge Date of Discharge 02/25/17 Primary Diagnosis Primary Diagnosis Plan IMPRESSION: 1. acute blood loss anemia w/ severe esophagitis, suspected AVMs etiology not determined 2. recent Acute upper gastrointestinal bleeding SIRS no sepsis s/p EGD 02/10 with exudative esophagitis, multiple petechiae, small HH. 3. severe weakness and debility 4. h/o Diarrhea. resolved with Questran bid 5. Osteoarthritis. 6. History of lumbar spinal stenosis with radiculopathy. 7. Hypertension. 8. History of cardiac arrhythmia. 9. Gastroesophageal reflux disease. 10. 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 pulmonary HTN Consults Consults Jesus Alberto Brock MD Procedures Procedures None Labs Labs Laboratory Tests Test 02/25/17 05:20 White Blood Count 4.7 x10^3/uL (4.0-11.0) Red Blood Count 4.11 x10^6/uL (4.30-5.70) Hemoglobin 10.2 g/dL (13.0-17.5) Hematocrit 31.3 % (39.0-53.0) Mean Corpuscular Volume 76 fL (79-100) Mean Corpuscular Hemoglobin 25 pg (25-35) Mean Corpuscular Hemoglobin Concent 33 g/dL (31-37) Red Cell Distribution Width 23.7 % (11.5-14.5) Platelet Count 248 x10^3/uL (140-400) Neutrophils (%) (Auto) 60 % (31-73) Lymphocytes (%) (Auto) 27 % (24-48) Monocytes (%) (Auto) 9 % (0-9) Eosinophils (%) (Auto) 3 % (0-3) Basophils (%) (Auto) 1 % (0-3) Neutrophils # (Auto) 2.8 x10^3uL (1.8-7.7) Lymphocytes # (Auto) 1.3 x10^3/uL (1.0-4.8) Monocytes # (Auto) 0.4 x10^3/uL (0.0-1.1) Eosinophils # (Auto) 0.2 x10^3/uL (0.0-0.7) Basophils # (Auto) 0.0 x10^3/uL (0.0-0.2) Platelet Estimate Adequate (ADEQUATE) Polychromasia Slight Hypochromasia Slight Poikilocytosis Slight Anisocytosis Mod Sodium Level 140 mmol/L (136-145) Potassium Level 4.5 mmol/L (3.5-5.1) Chloride Level 106 mmol/L (98-107) Carbon Dioxide Level 28 mmol/L (21-32) Anion Gap 6 (6-14) Blood Urea Nitrogen 11 mg/dL (8-26) Creatinine 0.7 mg/dL (0.7-1.3) Estimated GFR (Cockcroft-Gault) 106.7 Glucose Level 83 mg/dL (70-99) Calcium Level 8.4 mg/dL (8.5-10.1) Medications Medications Medications reviewed and reconciled for discharge. Brief hospital course Brief hospital course This 86 year old male who presented with agute blood loss anemia was admitted. 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 DVT/GI prophylaxis SCD/KRISH PPI For more details regarding the past history, family history, social history, surgical history and other details, please refer to History and Physical. Plan DC to [facility]. Please see discharge orders. Subjective feeling okay Objective alert, no distress Vitals Vital Signs Date Time Temp Pulse Resp B/P (MAP) Pulse Ox O2 Delivery O2 Flow Rate FiO2 02/25/17 03:00 98.4 71 16 105/57 (73) 98 98.4 02/24/17 15:00 Room Air Physical Exam General appearance - alert, chronically ill appearing, and in no distress Mental Status - alert, oriented to person, place, and time, affect appropriate to mood Head - normal Chest - clear to auscultation, no wheezes, rales or rhonchi, symmetric air entry Heart - S1 and S2 normal Abdomen - soft, nontender, nondistended, no masses or organomegaly Neurological - no acute focal neurological deficits noted Musculoskeletal - no muscular tenderness noted Extremities - no pedal edema Skin - warm and dry Medications Medications reviewed. Allergy Allergies Coded Allergies Type Severity Reaction Last Updated Verified No Known Drug Allergies 02/10/17 No Follow up Admit to Dr. Cedillo Disposition: Assisted facility (PT OT ) Comments Discharge Management - 35 minutes. For other details please refer to discharge instructions KASANDRA CEDILLO MD 02/25/17 1000: IM DISCHARGE & PROGRESS NOTES Brief hospital course Brief hospital course The patient was seen and examined by me. Chart reviewed and plan of care formulated. Discussed with, reviewed and agree with MARKETING TRAFFIC COORDINATOR's notes, plan of care and orders with modifications as necessary. Discharge Management - 35 minutes. CHIOMA CH APRN February 25, 2017 07:24 KASANDRA CEDILLO MD February 25, 2017 10:00
--- NOTE | 2017-02-25 07:25 | DISCH ---
DISCHARGE DISCHARGE DATE: February 25, 2017 FINAL DIAGNOSIS Problems Medical Problems: (1) Anemia Status: Acute (2) GI bleed Status: Acute CONDITION ON DISCHARGE: Stable SNF STAY <30 DAYS: Yes (PT OT eval and treat) POST DISCHARGE ORDERS ACTIVITY ORDERS: Activity as tolerated WEIGHT BEARING STATUS: No restrictions DIET AFTER DISCHARGE: Cardiac CHECKS AFTER DISCHARGE CHECKS AFTER DISCHARGE: Weigh Yourself Daily FOLLOW-UP LAB ORDERS FOR FOLLOW-UP: CBC with diff, CMP, Prealbumin in AM after admit TREATMENT/EQUIPMENT ORDERS ADAPTIVE EQUIPMENT NEEDED: Wheelchair CHIOMA CH APRN February 25, 2017 07:25
[2017-02-25] MEDS ORDERED: FERR-26 PO (07:27)
[2017-02-25] MEDS: POTASSIUM CHLORIDE 20 MEQ TABLET.ER. PO SCH (08:04)
[2017-02-25] MEDS: CHOLESTYRAMINE/ASPARTAME 4 GM PACKET PO SCH (08:05)
[2017-02-25] MEDS: OMEGA-3 FATTY ACIDS/FISH OIL 1,000 MG CAPSULE. PO SCH (08:05)
[2017-02-25] MEDS: PANTOPRAZOLE 40 MG TABLET.DR. PO SCH (08:05)
[2017-02-25] MEDS: oxyCODONE ER 10 MG TAB.ER.12H PO SCH (08:05)
[2017-02-25] MEDS: SPIRONOLACTONE 25 MG TABLET PO SCH (08:05)
[2017-02-25] MEDS: MULTIVITAMIN with MINERAL TABLET. PO SCH (08:05)
[2017-02-25] MEDS: FLUTICASONE 50MCG/NASAL SPRAY 16GM BOTTLE. NS SCH (08:06)
[2017-02-25 11:00] VITALS: BP 117/70
--- NOTE | 2017-02-25 11:49 | PDOC ---
Subjective: Subjective: Feeling okay. No abd pain, no bleeding. Eating w/o issue. Objective: Vital Signs: Vital Signs Date Time Temp Pulse Resp B/P (MAP) Pulse Ox O2 Delivery O2 Flow Rate FiO2 02/25/17 08:05 98 02/25/17 07:00 98.6 79 22 146/85 (105) Room Air 98.6 Labs: Laboratory Tests Test 02/25/17 05:20 White Blood Count 4.7 x10^3/uL Red Blood Count 4.11 x10^6/uL Hemoglobin 10.2 g/dL Hematocrit 31.3 % Mean Corpuscular Volume 76 fL Mean Corpuscular Hemoglobin 25 pg Mean Corpuscular Hemoglobin Concent 33 g/dL Red Cell Distribution Width 23.7 % Platelet Count 248 x10^3/uL Neutrophils (%) (Auto) 60 % Lymphocytes (%) (Auto) 27 % Monocytes (%) (Auto) 9 % Eosinophils (%) (Auto) 3 % Basophils (%) (Auto) 1 % Neutrophils # (Auto) 2.8 x10^3uL Lymphocytes # (Auto) 1.3 x10^3/uL Monocytes # (Auto) 0.4 x10^3/uL Eosinophils # (Auto) 0.2 x10^3/uL Basophils # (Auto) 0.0 x10^3/uL Platelet Estimate Adequate Polychromasia Slight Hypochromasia Slight Poikilocytosis Slight Anisocytosis Mod Sodium Level 140 mmol/L Potassium Level 4.5 mmol/L Chloride Level 106 mmol/L Carbon Dioxide Level 28 mmol/L Anion Gap 6 Blood Urea Nitrogen 11 mg/dL Creatinine 0.7 mg/dL Estimated GFR (Cockcroft-Gault) 106.7 Glucose Level 83 mg/dL Calcium Level 8.4 mg/dL PE: GEN: NAD LUNGS: CTAB HEART: RRR ABD: NABS, S/ND/NT NEURO/PSYCH: A & O 3 A/P: Anemia -Hgb improved after transfusion -h/o ulcerative esophagitis w/ last EGD 02/10/17 ---> on BID PPI, last colonoscopy in 2015 -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 Continue PPI. AMADOU ROSE February 25, 2017 11:49
== END 2017-02-25 14:30 | DRG 811 ==
LOC: ER 06:54 → 5 SOUTH 07:17
PROVIDERS: ADMIT Internal Medicine; ATTEND Internal Medicine
PROC: 30233N1 Transfusion of Nonautologous Red Blood Cells into Peripheral Vein, Percutaneous Approach (ICD-10-PCS; principal; 2017-02-24)
DX: D62 Acute posthemorrhagic anemia (principal); E43 Unspecified severe protein-calorie malnutrition; E78.5 Hyperlipidemia, unspecified; I10 Essential (primary) hypertension; I27.2 Other secondary pulmonary hypertension; I48.91 Unspecified atrial fibrillation; K29.70 Gastritis, unspecified, without bleeding; M19.90 Unspecified osteoarthritis, unspecified site; M40.209 Unspecified kyphosis, site unspecified; Z82.49 Family history of ischemic heart disease and other diseases of the circulatory system; Z87.19 Personal history of other diseases of the digestive system; G89.29 Other chronic pain; K20.9 Esophagitis, unspecified; K21.0 Gastro-esophageal reflux disease with esophagitis; Q27.33 Arteriovenous malformation of digestive system vessel
CPT/HCPCS: 36415; 80048; 85007; 85027; 86850; 86900; 86901; 86920; C9113; P9016

== ENCOUNTER 2017-04-26 12:13 | Inpatient (IN) | payer MEDICARE, BC ==
[~2017-04-26] VITALS: Ht 162.6 cm; Wt 60.8 kg
[~2017-04-26 12:13] MED LIST changes: +FERR-26 PO
--- NOTE | 2017-04-26 13:13 | PHYS DOC ---
Past Medical History Past Medical History: A-Fib, Anemia, Arthritis, GERD, Hypertension, Other Additional Past Medical Histor: CHRONIC BACK PAIN, GI bleed,Hypokalemia,Muscle wasting,Spinal Stenosis. Past Surgical History: Other Additional Past Surgical Histo: BACK SURGERY Alcohol Use: None Drug Use: None Adult General Chief Complaint Chief Complaint: ABDOMINAL PAIN HPI HPI 86-year-old male with a history of chronic debilitation and weakness with a prior GI bleed, lives in assisted living because of his inability to provide care for himself and perform ADLs, now presents to the emergency department with malaise, weakness, and per report abdominal pain earlier. Patient states his abdominal pain is now resolved but he does feel weak. Denies chest pain or shortness of breath. He reports his bladder and bowel habits are normal and baseline for him. No other complaints Review of Systems Review of Systems Constitutional: Denies fever or chills [] Eyes: Denies change in visual acuity, redness, or eye pain [] HENT: Denies nasal congestion or sore throat [] Respiratory: Denies cough or shortness of breath [] Cardiovascular: No additional information not addressed in HPI [] GI: Denies abdominal pain, nausea, vomiting, bloody stools or diarrhea [] : Denies dysuria or hematuria [] Musculoskeletal: Denies back pain or joint pain [] Integument: Denies rash or skin lesions [] Neurologic: Denies headache, focal weakness or sensory changes [] Endocrine: Denies polyuria or polydipsia [] Current Medications Current Medications Current Medications Medications (Trade) Dose Ordered Sig/Azalia Start Time Stop Time Status Last Admin Dose Admin Info (Do NOT chart on this entry -- for MONITORING) 1 each PRN DAILY PRN 04/26/17 13:45 04/28/17 13:44 Iohexol (Omnipaque 300 Mg/ml) 75 ml 1X ONCE 04/26/17 13:30 04/26/17 13:31 DC 04/26/17 15:18 75 ML Sodium Chloride 500 ml @ 500 mls/hr 1X ONCE 04/26/17 13:15 04/26/17 14:14 DC 04/26/17 15:00 500 MLS/HR Allergies Allergies Allergies Coded Allergies Type Severity Reaction Last Updated Verified No Known Drug Allergies 02/10/17 No Physical Exam Physical Exam Chronically weak appearing elderly male no acute distress dry mucous membranes nonfocal neurologic exam but globally 4 minus out of 5 strength with no asymmetry. He is cachectic with some skin tenting. No CVA tenderness and no focal tenderness the abdomen no mass or megaly normal bowel sounds chronic diffuse skin changes but no acute changes Constitutional: , no acute distress, as above HENT: Normocephalic, atraumatic, bilateral external ears normal, oropharynx dry , no oral exudates, nose normal. [] Eyes: PERRLA, EOMI, conjunctiva normal, no discharge. [] Neck: Normal range of motion, no tenderness, supple, no stridor. [] Cardiovascular:Heart rate regular rhythm, no murmur [] Lungs & Thorax: Bilateral breath sounds clear to auscultation [] Abdomen: Bowel sounds normal, soft, no tenderness, no masses, no pulsatile masses. [] Skin: Warm, dry, no erythema, no rash. [] Back: No tenderness, no CVA tenderness. [] Extremities: No tenderness, no cyanosis, no clubbing, ROM intact, no edema. [] Neurologic: Alert and oriented X 3, normal motor function, normal sensory function, no focal deficits noted. [] Psychologic: Depressed mood and flat affect however patient is communicative and cooperative. [] Current Patient Data Vital Signs Vital Signs Date Time Temp Pulse Resp B/P (MAP) Pulse Ox O2 Delivery O2 Flow Rate FiO2 04/26/17 15:15 70 14 120/60 (80) 98 Room Air Lab Values Laboratory Tests Test 04/26/17 14:03 04/26/17 14:25 Urine Collection Type Unknown Urine Color Yellow Urine Clarity Clear Urine pH 5.5 Urine Specific [place] 1.025 Urine Protein Negative mg/dL (NEG-TRACE) Urine Glucose (UA) Negative mg/dL (NEG) Urine Ketones (Stick) Negative mg/dL (NEG) Urine Blood Negative (NEG) Urine Nitrite Negative (NEG) Urine Bilirubin Negative (NEG) Urine Urobilinogen Dipstick 0.2 mg/dL (0.2 mg/dL) Urine Leukocyte Esterase Negative (NEG) Urine RBC Rare /HPF (0-2) Urine WBC 0 /HPF (0-4) Urine Transitional Epithelial Cells Few /LPF Urine Bacteria 0 /HPF (0-FEW) White Blood Count 6.2 x10^3/uL (4.0-11.0) Red Blood Count 4.53 x10^6/uL (4.30-5.70) Hemoglobin 12.1 g/dL (13.0-17.5) L Hematocrit 36.7 % (39.0-53.0) L Mean Corpuscular Volume 81 fL (79-100) Mean Corpuscular Hemoglobin 27 pg (25-35) Mean Corpuscular Hemoglobin Concent 33 g/dL (31-37) Red Cell Distribution Width 22.8 % (11.5-14.5) H Platelet Count 158 x10^3/uL (140-400) Neutrophils (%) (Auto) 76 % (31-73) H Lymphocytes (%) (Auto) 14 % (24-48) L Monocytes (%) (Auto) 10 % (0-9) H Eosinophils (%) (Auto) 0 % (0-3) Basophils (%) (Auto) 0 % (0-3) Neutrophils # (Auto) 4.7 x10^3uL (1.8-7.7) Lymphocytes # (Auto) 0.9 x10^3/uL (1.0-4.8) L Monocytes # (Auto) 0.6 x10^3/uL (0.0-1.1) Eosinophils # (Auto) 0.0 x10^3/uL (0.0-0.7) Basophils # (Auto) 0.0 x10^3/uL (0.0-0.2) Platelet Estimate Adequate (ADEQUATE) Anisocytosis Mod Sodium Level 146 mmol/L (136-145) H Potassium Level 4.1 mmol/L (3.5-5.1) Chloride Level 108 mmol/L (98-107) H Carbon Dioxide Level 27 mmol/L (21-32) Anion Gap 11 (6-14) Blood Urea Nitrogen 34 mg/dL (8-26) H Creatinine 0.8 mg/dL (0.7-1.3) Estimated GFR (Cockcroft-Gault) 91.4 BUN/Creatinine Ratio 43 (6-20) H Glucose Level 107 mg/dL (70-99) H Calcium Level 9.0 mg/dL (8.5-10.1) Total Bilirubin 0.4 mg/dL (0.2-1.0) Aspartate Amino Transferase (AST) 12 U/L (15-37) L Alanine Aminotransferase (ALT) 9 U/L (16-63) L Alkaline Phosphatase 58 U/L (46-116) Troponin I Quantitative < 0.017 ng/mL (0.000-0.055) Total Protein 6.1 g/dL (6.4-8.2) L Albumin 3.2 g/dL (3.4-5.0) L Albumin/Globulin Ratio 1.1 (1.0-1.7) Lipase 216 U/L (73-393) Laboratory Tests 04/26/17 14:25 Laboratory Tests 04/26/17 14:25 EKG EKG [] Radiology/Procedures Radiology/Procedures [] Course & Med Decision Making Course & Med Decision Making Pertinent Labs and Imaging studies reviewed. (See chart for details) Elderly patient with chronic debilitation and generalized weakness. Now complaining of malaise and vague symptoms with abdominal pain earlier today which is now resolved. Full workup pending Laboratory results with BUN/creatinine 34 and 0.8 consistent with a BUN/ creatinine ratio of greater than 40 adjusting severe dehydration and prerenal azotemia. Hydration have been initiated and will continue. We'll discuss with Dr. Shady Handley polymer materials consultant for Dr. Janay Cedillo regarding inpatient admission to a [facility] bed for continued hydration and any other necessary therapeutic interventions [] Dragon Disclaimer Dragon Disclaimer This electronic medical record was generated, in whole or in part, using a voice recognition dictation system. Departure Departure Impression: Primary Impression: Severe dehydration Disposition: ADMITTED INPATIENT Condition: STABLE Referrals: KASANDRA CEDILLO MD (PCP) MAURICE CARDENAS MD Apr 26, 2017 13:13
[2017-04-26] MEDS ORDERED: IV NORMAL SALINE 500ML BAG 500 ML IV ONE (13:15)
[2017-04-26] MEDS ORDERED: IOHEXOL 300 MG/ML 75 ML VIAL IV ONE (13:30)
[2017-04-26] MEDS ORDERED: CONTRAST GIVEN MC PRN (13:45)
--- NOTE | 2017-04-26 13:53 | RAD ---
Chest radiograph 04/26/2017 at 1336 hours Indication: Hypertension, loss of appetite. Comparison: Chest radiograph 02/09/2017 Technique: Portable upright AP view of the chest is provided. Findings: Patient is slightly rotated. Cardiomediastinal silhouette is within normal limits. No pleural effusions, pulmonary vascular congestion or pneumothorax. The lungs are clear. Remote healed right-sided seventh and eighth rib posterior rib fractures. Moderate degenerative changes of the midthoracic spine. Impression: No acute cardiopulmonary process.
[2017-04-26 14:11] LABS: BILIRUBIN,URINE NEGATIVE (NEG); GLUCOSE,URINE NEGATIVE (NEG); NITRITE,URINE NEGATIVE (NEG); PH,URINE 5.5; PROTEIN,URINE NEGATIVE (NEG-TRACE); UROBILINOGEN,URINE 0.2 mg/dL (0.2 mg/dL)
[2017-04-26 14:20] LABS: BACTERIA,URINE 0 /HPF (0-FEW); RBC,URINE RARE /HPF (0-2); WBC,URINE 0 /HPF (0-4)
[2017-04-26 14:32] LABS: BASO % 0 % (0-3); EOS % 0 % (0-3); HEMATOCRIT 36.7 % (39.0-53.0); HEMOGLOBIN 12.1 g/dL (13.0-17.5); LYMPH # 0.9 x10^3/uL (1.0-4.8); LYMPH % 14 % (24-48); MEAN CORPUSCULAR HEMOGLOBIN 27 pg (25-35); MEAN CORPUSCULAR HGB CONC 33 g/dL (31-37); MEAN CORPUSCULAR VOLUME 81 fL (79-100); MONO % 10 % (0-9); NEUT % 76 % (31-73); PLATELET COUNT 158 x10^3/uL (140-400); RED BLOOD COUNT 4.53 x10^6/uL (4.30-5.70); RED CELL DISTRIBUTION WIDTH 22.8 % (11.5-14.5); WHITE BLOOD COUNT 6.2 x10^3/uL (4.0-11.0)
[2017-04-26 14:50] LABS: CREATININE 0.8 mg/dL (0.7-1.3); GFR 91.4; POTASSIUM 4.1 mmol/L (3.5-5.1)
[2017-04-26 14:52] LABS: ANISOCYTOSIS MOD; PLT ESTIMATE ADEQUATE (ADEQUATE)
[2017-04-26 14:56] LABS: ALBUMIN 3.2 g/dL (3.4-5.0); ALBUMIN/GLOBULIN RATIO 1.1 (1.0-1.7); TOTAL BILIRUBIN 0.4 mg/dL (0.2-1.0); TOTAL PROTEIN 6.1 g/dL (6.4-8.2)
[2017-04-26] MEDS: IV NORMAL SALINE 1000ML BAG 1,000 ML IV SCH ×2 (15:46→20:45)
--- NOTE | 2017-04-26 15:59 | RAD ---
CT of the abdomen and pelvis with contrast, 04/26/2017: History: Abdominal pain Multidetector CT imaging was performed following an IV bolus injection of iodinated contrast material. No oral contrast material was administered for this exam. Comparison is made to a study from 06/06/2016. The liver is unremarkable. There is material of increased density within the dependent aspect of the gallbladder probably representing multiple tiny calculi. A previous ultrasound study demonstrated the presence of calculi and gallbladder sludge. No pericholecystic edema is seen. There is no evidence of a pancreatic mass. The spleen is of normal size. There are small bilateral renal cysts. The kidneys show no evidence of obstruction. No adrenal abnormality is detected. An inferior vena cava filter is in place. There is moderate aortoiliac calcific plaquing without evidence of aneurysm. Small bubbles of gas in the urinary bladder presumably on an echogenic basis. Colonic diverticula are present, most numerous in the sigmoid region. No paracolonic inflammatory process is seen. No bowel dilatation is evident. A small hiatal hernia is noted. No free fluid or free air is evident in the abdomen or pelvis. There is moderate multilevel degenerative change in the spine. There has been a previous lower lumbar posterior spinal fusion and instrumentation. IMPRESSION: 1. Cholelithiasis. 2. Sigmoid diverticulosis. 3. An inferior vena cava filter is in place. 4. Small hiatal hernia. 5. No acute abdominal or pelvic abnormality is detected. PQRS Compliance Statement: One or more of the following individualized dose reduction techniques were utilized for this examination: 1. Automated exposure control 2. Adjustment of the mA and/or kV according to patient size 3. Use of iterative reconstruction technique
--- NOTE | 2017-04-26 16:03 | EKG ---
[facility] [address] [place] [address] Test Date: 2017-04-26 Test Time: 13:29:47 Pat Name: TAL ALICEA Department: Room: Gender: M Plant Supervisor: : [id number] Requested By: MAURICE CARDENAS Order Number: [id number] Reading MD: Diana Kessler Measurements Intervals [place] Rate: 85 P: 26 TX: 148 QRS: -23 QRSD: 80 T: 35 QT: 402 QTc: 484 Interpretive Statements SINUS RHYTHM LEFTWARD AXIS T ABNORMALITY IN ANTERIOR LEADS Electronically Signed On 05-01-2017 14:58:22 CDT by Diana Kessler
[2017-04-26 17:35] VITALS: BP 125/65
[2017-04-26 19:00] VITALS: BP 129/65
[2017-04-26] MEDS ORDERED: VENTOLIN HFA18 GM INH (19:14)
[2017-04-26] MEDS ORDERED: LOPE2TAB56 PO (19:14)
[2017-04-26] MEDS ORDERED: DONE5TAB56 PO (19:14)
[2017-04-26] MEDS ORDERED: CETI10TA16 PO (19:14)
[2017-04-26 22:40] VITALS: BP 109/50
[2017-04-26] MEDS ORDERED: NON FORMULARY ITEM (Albuterol Sulfate (Ventolin Hfa Inhaler) 2 PUFF) INH PRN (23:30)
[2017-04-26] MEDS ORDERED: ACETAMINOPHEN 500 MG TABLET PO PRN (23:30)
[2017-04-26] MEDS ORDERED: ALBUTEROL SULFATE 2.5 MG/3 ML NEBU. NEB PRN (23:45)
--- NOTE | 2017-04-27 02:24 | ACF ---
Admission Forms Criteria DEHYDRATION Clinical Indications for Admission to Inpatient Care (Place 'X' for any and all applicable criteria): Admission is indicated for ANY ONE of the following (1)(2)(3)(4)(5): [X]I. Inpatient admission required rather than observation care (see Dehydration: Observation Care guideline as appropriate) because of ANY ONE of the following: [ ]a) Vomiting that is severe or persistent [ ]b) Severe electrolyte abnormalities requiring inpatient care [ ]c) Hemodynamic instability [ ]d) IV fluid to replace significant ongoing losses (greater than 3 L/m2 per day (10) (11) [ ]e) Parenteral nutrition regimen that must be implemented on inpatient basis [X]f) Other condition,treatment or monitoring requiring inpatient admission [ ]II. Serious cause for dehydration requiring acute hospitalization (eg, bowel obstruction, increased intracranial pressure, infectious cause) Extended stay beyond goal length of stay may be needed for(1)(3 )(4)(17): [ ]a) Chronic severe dehydration [ ]b) Persistent vital sign changes, severe electrolyte imbalance, or diagnosed cause of dehydration that requires continued hospitalization (eg, bowel obstruction, increased intracranial pressure) [ ]c) Older patients (65 years or older) [ ]d) Severe comorbid illness (eg, renal failure, heart failure, poorly controlled diabetes) The original [employer] content created by [employer] has been revised. The portions of the content which have been revised are identified through the use of italic text or in bold, and [facility] has neither reviewed nor approved the modified material. All other unmodified content is copyright [employer]. Please see references footnoted in the original [employer] edition 2016 Admission Criteria Met?: Yes KAI WOODALL Apr 27, 2017 02:24
[2017-04-27 03:00] VITALS: BP 131/65
[2017-04-27] MEDS: IV NORMAL SALINE 1000ML BAG 1,000 ML IV SCH ×2 (04:04→11:27)
[2017-04-27 06:01] LABS: BASO % 0 % (0-3); EOS % 0 % (0-3); HEMATOCRIT 30.9 % (39.0-53.0); HEMOGLOBIN 10.4 g/dL (13.0-17.5); LYMPH % 23 % (24-48); MEAN CORPUSCULAR HEMOGLOBIN 27 pg (25-35); MEAN CORPUSCULAR HGB CONC 34 g/dL (31-37); MEAN CORPUSCULAR VOLUME 81 fL (79-100); MONO % 9 % (0-9); NEUT % 67 % (31-73); PLATELET COUNT 133 x10^3/uL (140-400); RED BLOOD COUNT 3.81 x10^6/uL (4.30-5.70); RED CELL DISTRIBUTION WIDTH 22.4 % (11.5-14.5); WHITE BLOOD COUNT 4.5 x10^3/uL (4.0-11.0)
[2017-04-27 06:27] LABS: CALCIUM 8.2 mg/dL (8.5-10.1); CREATININE 0.7 mg/dL (0.7-1.3); GFR 106.7; POTASSIUM 3.1 mmol/L (3.5-5.1)
[2017-04-27 07:00] VITALS: BP 117/64
[2017-04-27] MEDS: PANTOPRAZOLE 40 MG TABLET.DR. PO SCH ×2 (10:00→16:52)
[2017-04-27] MEDS: FLUTICASONE 50MCG/NASAL SPRAY 16GM BOTTLE. NS SCH (10:01)
[2017-04-27] MEDS: FERROUS SULFATE 325 MG TABLET. PO SCH (10:02)
[2017-04-27] MEDS: SPIRONOLACTONE 25 MG TABLET PO SCH (10:02)
[2017-04-27] MEDS: MULTIVITAMIN with MINERAL TABLET. PO SCH (10:03)
[2017-04-27] MEDS: CHOLESTYRAMINE/ASPARTAME 4 GM PACKET PO SCH ×3 (10:03→21:00)
[2017-04-27] MEDS: POTASSIUM CHLORIDE 20 MEQ TABLET.ER. PO SCH ×2 (10:03→21:00)
[2017-04-27] MEDS: OMEGA-3 FATTY ACIDS/FISH OIL 1,000 MG CAPSULE. PO SCH (10:03)
[2017-04-27] MEDS: CETIRIZINE HCL 10 MG TABLET. PO SCH (10:04)
[2017-04-27 11:00] VITALS: BP 97/49
[2017-04-27 15:00] VITALS: BP 89/47
--- NOTE | 2017-04-27 18:06 | PDOC1 ---
HISTORY AND PHYSICAL Chief Complaint Chief Complaint This is 86-year-old male with a history of chronic debilitation and weakness, lives in assisted living because of his inability to provide care for himself and perform ADLs, now presents to the emergency department with malaise, weakness, and per report abdominal pain earlier. Patient states his abdominal pain is now resolved but he does feel weak. Denies chest pain or shortness of breath. He reports his bladder and bowel habits are normal and baseline for him. He was admitted for weakness and dehydration. Problems: Past Medical History Cardiovascular: HTN, Hyperlipidemia, Pulmonary hypertension, Other GI: Diverticulosis, GERD, Hemorrhoids Heme/Onc: Anemia NOS Musculoskeletal: low back pain, Other Renal/: Urinary Incontinence Past Family History Family History: No Significant Past Social History PSH ex smoker, denies alcohol, lives in assited facility , walk with walker Review of Symptoms Review of Symptoms General ROS: positive forweakness and abd pain Psychological ROS: negative Ophthalmic ROS: negative ENT ROS: negative Allergy and Immunology ROS: negative Hematology and Lymphatic: negative Endocrine ROS: negative Respiratory ROS: no cold, cough, dyspnea. Cardiovascular ROS: no chest pain or dyspnea on exertion Gastrointestinal ROS: constipation Genito-Urinary ROS: no dysuria, trouble voiding, or hematuria Musculoskeletal ROS: no pain Neurological ROS: negative Dermatological ROS: no rash Medications Current Medications Acetaminophen (Tylenol) 500 mg PRN Q6HRS PRN PO MILD PAIN / TEMP; Start at 23:30 Albuterol Sulfate (Ventolin Neb Soln) 2.5 mg PRN Q6HRS PRN NEB SHORTNESS OF BREATH; Start 04/26/17 at 23:45 Cetirizine HCl (ZyrTEC) 5 mg DAILY PO Last administered on 04/27/17 10:04; Start 04/27/17 at 09:00 Cholestyramine Resin (Questran Light) 4 gm BID PO ; Start 04/27/17 at 09:00 Donepezil HCl (Aricept) 5 mg QHS PO ; Start 04/27/17 at 21:00 Enoxaparin Sodium (Lovenox 40mg Syringe) 40 mg QHS SQ ; Start 04/27/17 at 21:00 Ferrous Sulfate (Feosol) 325 mg DAILY PO Last administered on 04/27/17 10:02; Start 04/27/17 at 09:00 Fish Oil (Fish Oil) 1,000 mg DAILY PO Last administered on 04/27/17 10:03; Start 04/27/17 at 09:00 Fluticasone Propionate (Flonase) 2 spray DAILY NS Last administered on 10:01; Start 04/27/17 at 09:00 Multivitamins (Thera M Plus) 1 tab DAILY PO Last administered on 04/27/17 10: 03; Start 04/27/17 at 09:00 Non-Formulary Medication 2 puff QID PRN INH WHEEZING; Start 04/26/17 at 23:30; Status UNV Pantoprazole Sodium (Protonix) 40 mg BIDAC PO Last administered on 04/27/17 16 :52; Start 04/27/17 at 07:30 Potassium Chloride (Klor-Con) 20 meq BID PO Last administered on 04/27/17 10: 03; Start 04/27/17 at 09:00 Simvastatin (Zocor) 20 mg QHS PO ; Start 04/27/17 at 21:00 Spironolactone (Aldactone) 25 mg DAILY PO Last administered on 04/27/17 10:02 ; Start 04/27/17 at 09:00 Allergy Allergies Coded Allergies Type Severity Reaction Last Updated Verified No Known Drug Allergies 02/10/17 No Physical Exam Physical Exam General appearance - Chronically ill looking , in no distress and oriented to person, Mental Status - alert, oriented to person, , affect flat Head - normal Chest - clear to auscultation, no wheezes, rales or rhonchi, symmetric air entry Heart - S1 and S2 normal Abdomen - soft, nontender, nondistended, no masses or organomegaly Neurological - alert and oriented Musculoskeletal - no muscular tenderness noted Extremities - no pedal edema Skin - warm and dry no mejia Labs Laboratory Tests Test 04/26/17 14:03 04/26/17 14:25 04/27/17 04:35 04/27/17 05:35 Urine Collection Type Unknown Urine Color Yellow Urine Clarity Clear Urine pH 5.5 Urine Specific [place] 1.025 Urine Protein Negative mg/dL (NEG-TRACE) Urine Glucose (UA) Negative mg/dL (NEG) Urine Ketones (Stick) Negative mg/dL (NEG) Urine Blood Negative (NEG) Urine Nitrite Negative (NEG) Urine Bilirubin Negative (NEG) Urine Urobilinogen Dipstick 0.2 mg/dL (0.2 mg/dL) Urine Leukocyte Esterase Negative (NEG) Urine RBC Rare /HPF (0-2) Urine WBC 0 /HPF (0-4) Urine Transitional Epithelial Cells Few /LPF Urine Bacteria 0 /HPF (0-FEW) White Blood Count 6.2 x10^3/uL (4.0-11.0) 4.5 x10^3/uL (4.0-11.0) Red Blood Count 4.53 x10^6/uL (4.30-5.70) 3.81 x10^6/uL (4.30-5.70) Hemoglobin 12.1 g/dL (13.0-17.5) 10.4 g/dL (13.0-17.5) Hematocrit 36.7 % (39.0-53.0) 30.9 % (39.0-53.0) Mean Corpuscular Volume 81 fL (79-100) 81 fL (79-100) Mean Corpuscular Hemoglobin 27 pg (25-35) 27 pg (25-35) Mean Corpuscular Hemoglobin Concent 33 g/dL (31-37) 34 g/dL (31-37) Red Cell Distribution Width 22.8 % (11.5-14.5) 22.4 % (11.5-14.5) Platelet Count 158 x10^3/uL (140-400) 133 x10^3/uL (140-400) Neutrophils (%) (Auto) 76 % (31-73) 67 % (31-73) Lymphocytes (%) (Auto) 14 % (24-48) 23 % (24-48) Monocytes (%) (Auto) 10 % (0-9) 9 % (0-9) Eosinophils (%) (Auto) 0 % (0-3) 0 % (0-3) Basophils (%) (Auto) 0 % (0-3) 0 % (0-3) Neutrophils # (Auto) 4.7 x10^3uL (1.8-7.7) 3.0 x10^3uL (1.8-7.7) Lymphocytes # (Auto) 0.9 x10^3/uL (1.0-4.8) 1.0 x10^3/uL (1.0-4.8) Monocytes # (Auto) 0.6 x10^3/uL (0.0-1.1) 0.4 x10^3/uL (0.0-1.1) Eosinophils # (Auto) 0.0 x10^3/uL (0.0-0.7) 0.0 x10^3/uL (0.0-0.7) Basophils # (Auto) 0.0 x10^3/uL (0.0-0.2) 0.0 x10^3/uL (0.0-0.2) Platelet Estimate Adequate (ADEQUATE) Anisocytosis Mod Sodium Level 146 mmol/L (136-145) 147 mmol/L (136-145) Potassium Level 4.1 mmol/L (3.5-5.1) 3.1 mmol/L (3.5-5.1) Chloride Level 108 mmol/L (98-107) 112 mmol/L (98-107) Carbon Dioxide Level 27 mmol/L (21-32) 26 mmol/L (21-32) Anion Gap 11 (6-14) 9 (6-14) Blood Urea Nitrogen 34 mg/dL (8-26) 24 mg/dL (8-26) Creatinine 0.8 mg/dL (0.7-1.3) 0.7 mg/dL (0.7-1.3) Estimated GFR (Cockcroft-Gault) 91.4 106.7 BUN/Creatinine Ratio 43 (6-20) Glucose Level 107 mg/dL (70-99) 80 mg/dL (70-99) Calcium Level 9.0 mg/dL (8.5-10.1) 8.2 mg/dL (8.5-10.1) Total Bilirubin 0.4 mg/dL (0.2-1.0) Aspartate Amino Transf (AST/SGOT) 12 U/L (15-37) Alanine Aminotransferase (ALT/SGPT) 9 U/L (16-63) Alkaline Phosphatase 58 U/L (46-116) Troponin I Quantitative < 0.017 ng/mL (0.000-0.055) Total Protein 6.1 g/dL (6.4-8.2) Albumin 3.2 g/dL (3.4-5.0) Albumin/Globulin Ratio 1.1 (1.0-1.7) Lipase 216 U/L (73-393) Thyroid Stimulating Hormone (TSH) 1.226 uIU/mL (0.358-3.74) Laboratory Tests Test 04/27/17 04:35 04/27/17 05:35 White Blood Count 4.5 x10^3/uL (4.0-11.0) Red Blood Count 3.81 x10^6/uL (4.30-5.70) Hemoglobin 10.4 g/dL (13.0-17.5) Hematocrit 30.9 % (39.0-53.0) Mean Corpuscular Volume 81 fL (79-100) Mean Corpuscular Hemoglobin 27 pg (25-35) Mean Corpuscular Hemoglobin Concent 34 g/dL (31-37) Red Cell Distribution Width 22.4 % (11.5-14.5) Platelet Count 133 x10^3/uL (140-400) Neutrophils (%) (Auto) 67 % (31-73) Lymphocytes (%) (Auto) 23 % (24-48) Monocytes (%) (Auto) 9 % (0-9) Eosinophils (%) (Auto) 0 % (0-3) Basophils (%) (Auto) 0 % (0-3) Neutrophils # (Auto) 3.0 x10^3uL (1.8-7.7) Lymphocytes # (Auto) 1.0 x10^3/uL (1.0-4.8) Monocytes # (Auto) 0.4 x10^3/uL (0.0-1.1) Eosinophils # (Auto) 0.0 x10^3/uL (0.0-0.7) Basophils # (Auto) 0.0 x10^3/uL (0.0-0.2) Sodium Level 147 mmol/L (136-145) Potassium Level 3.1 mmol/L (3.5-5.1) Chloride Level 112 mmol/L (98-107) Carbon Dioxide Level 26 mmol/L (21-32) Anion Gap 9 (6-14) Blood Urea Nitrogen 24 mg/dL (8-26) Creatinine 0.7 mg/dL (0.7-1.3) Estimated GFR (Cockcroft-Gault) 106.7 Glucose Level 80 mg/dL (70-99) Calcium Level 8.2 mg/dL (8.5-10.1) Thyroid Stimulating Hormone (TSH) 1.226 uIU/mL (0.358-3.74) Vitals Vital Signs Date Time Temp Pulse Resp B/P (MAP) Pulse Ox O2 Delivery O2 Flow Rate FiO2 04/27/17 11:22 96 Room Air 04/27/17 11:00 97.0 67 18 97/49 (65) 97.0 VTE Prophylaxis VTE Prophylaxis Devices: Yes VTE Pharmacological Prophylaxi: Yes Assessment Assessment weaknesss dehydration a fib ivc filter malnutrition mod Plan Plan iv fluids replace pot social service [facility] [place]. For more details regarding further plans, please refer to the orders. EMERY SKINNER MD Apr 27, 2017 18:06
[2017-04-27] MEDS ORDERED: POTASSIUM CHLORIDE 20 MEQ TABLET.ER. PO ONE ×2 (18:15→20:15)
[2017-04-27 19:00] VITALS: BP 99/52
[2017-04-27] MEDS ORDERED: ENOXAPARIN 40 MG/0.4 ML SYRINGE. SQ SCH (21:00)
[2017-04-27] MEDS: SIMVASTATIN 20 MG TABLET PO SCH (21:00)
[2017-04-27] MEDS: DONEPEZIL HCL 5 MG TABLET. PO SCH (21:00)
[2017-04-27 23:00] VITALS: BP 123/60
[2017-04-28 03:10] VITALS: BP 93/51
[2017-04-28 06:13] LABS: BASO % 1 % (0-3); EOS % 2 % (0-3); HEMATOCRIT 30.2 % (39.0-53.0); HEMOGLOBIN 9.6 g/dL (13.0-17.5); LYMPH # 1.4 x10^3/uL (1.0-4.8); LYMPH % 32 % (24-48); MEAN CORPUSCULAR HEMOGLOBIN 26 pg (25-35); MEAN CORPUSCULAR HGB CONC 32 g/dL (31-37); MEAN CORPUSCULAR VOLUME 83 fL (79-100); MONO % 9 % (0-9); NEUT % 57 % (31-73); PLATELET COUNT 118 x10^3/uL (140-400); RED BLOOD COUNT 3.65 x10^6/uL (4.30-5.70); RED CELL DISTRIBUTION WIDTH 22.5 % (11.5-14.5); WHITE BLOOD COUNT 4.4 x10^3/uL (4.0-11.0)
[2017-04-28 06:35] LABS: CREATININE 0.6 mg/dL (0.7-1.3); GFR 127.4
[2017-04-28 07:00] VITALS: BP 105/41
[2017-04-28] MEDS ORDERED: LOPERAMIDE 2 MG CAPSULE PO PRN (07:45)
[2017-04-28] MEDS: PANTOPRAZOLE 40 MG TABLET.DR. PO SCH ×2 (07:47→16:23)
--- NOTE | 2017-04-28 07:48 | PDOC ---
CHIOMA CH GEL COATER 04/28/17 0748: IM PROGRESS NOTES- Subjective Subjective c/o diarrhea Summary of admission to date: admitted 04/26/17 malaise, weak, abdominal pain and diarrhea. CT abd/pelvis IV contrast: cholelithiasis, sigmoid diverticulosis , small HH and IVC filter in place. Admit Hgb 12.1, Na 146, and UA negative. Objective Objective alert, appropriate Vitals Vital Signs Date Time Temp Pulse Resp B/P (MAP) Pulse Ox O2 Delivery O2 Flow Rate FiO2 04/28/17 03:10 97.6 69 20 93/51 (65) 96 Room Air 97.6 Input & Output Intake and Output 04/28/17 07:00 Intake Total 460 ml Output Total 350 ml Balance 110 ml Intake Oral 460 ml Output Urine Total 350 ml # Voids 2 # Bowel Movements 1 Physical Exam Physical Exam General appearance - alert, chronically ill appearing, thin and in no distress Mental Status - alert, oriented to person, place, and time, affect appropriate to mood Head - normal Chest - clear to auscultation, no wheezes, rales or rhonchi, symmetric air entry Heart - S1 and S2 normal Abdomen - soft, nontender, nondistended, no masses or organomegaly Neurological - no acute focal neurological deficits noted. Musculoskeletal - no muscular tenderness noted Extremities - no pedal edema Skin - warm and dry Labs Laboratory Tests Test 04/26/17 14:03 04/26/17 14:25 04/26/17 19:50 04/27/17 04:35 Urine Collection Type Unknown Urine Color Yellow Urine Clarity Clear Urine pH 5.5 Urine Specific [place] 1.025 Urine Protein Negative mg/dL (NEG-TRACE) Urine Glucose (UA) Negative mg/dL (NEG) Urine Ketones (Stick) Negative mg/dL (NEG) Urine Blood Negative (NEG) Urine Nitrite Negative (NEG) Urine Bilirubin Negative (NEG) Urine Urobilinogen Dipstick 0.2 mg/dL (0.2 mg/dL) Urine Leukocyte Esterase Negative (NEG) Urine RBC Rare /HPF (0-2) Urine WBC 0 /HPF (0-4) Urine Transitional Epithelial Cells Few /LPF Urine Bacteria 0 /HPF (0-FEW) White Blood Count 6.2 x10^3/uL (4.0-11.0) 4.5 x10^3/uL (4.0-11.0) Red Blood Count 4.53 x10^6/uL (4.30-5.70) 3.81 x10^6/uL (4.30-5.70) Hemoglobin 12.1 g/dL (13.0-17.5) 10.4 g/dL (13.0-17.5) Hematocrit 36.7 % (39.0-53.0) 30.9 % (39.0-53.0) Mean Corpuscular Volume 81 fL (79-100) 81 fL (79-100) Mean Corpuscular Hemoglobin 27 pg (25-35) 27 pg (25-35) Mean Corpuscular Hemoglobin Concent 33 g/dL (31-37) 34 g/dL (31-37) Red Cell Distribution Width 22.8 % (11.5-14.5) 22.4 % (11.5-14.5) Platelet Count 158 x10^3/uL (140-400) 133 x10^3/uL (140-400) Neutrophils (%) (Auto) 76 % (31-73) 67 % (31-73) Lymphocytes (%) (Auto) 14 % (24-48) 23 % (24-48) Monocytes (%) (Auto) 10 % (0-9) 9 % (0-9) Eosinophils (%) (Auto) 0 % (0-3) 0 % (0-3) Basophils (%) (Auto) 0 % (0-3) 0 % (0-3) Neutrophils # (Auto) 4.7 x10^3uL (1.8-7.7) 3.0 x10^3uL (1.8-7.7) Lymphocytes # (Auto) 0.9 x10^3/uL (1.0-4.8) 1.0 x10^3/uL (1.0-4.8) Monocytes # (Auto) 0.6 x10^3/uL (0.0-1.1) 0.4 x10^3/uL (0.0-1.1) Eosinophils # (Auto) 0.0 x10^3/uL (0.0-0.7) 0.0 x10^3/uL (0.0-0.7) Basophils # (Auto) 0.0 x10^3/uL (0.0-0.2) 0.0 x10^3/uL (0.0-0.2) Platelet Estimate Adequate (ADEQUATE) Anisocytosis Mod Sodium Level 146 mmol/L (136-145) 147 mmol/L (136-145) Potassium Level 4.1 mmol/L (3.5-5.1) 3.1 mmol/L (3.5-5.1) Chloride Level 108 mmol/L (98-107) 112 mmol/L (98-107) Carbon Dioxide Level 27 mmol/L (21-32) 26 mmol/L (21-32) Anion Gap 11 (6-14) 9 (6-14) Blood Urea Nitrogen 34 mg/dL (8-26) 24 mg/dL (8-26) Creatinine 0.8 mg/dL (0.7-1.3) 0.7 mg/dL (0.7-1.3) Estimated GFR (Cockcroft-Gault) 91.4 106.7 BUN/Creatinine Ratio 43 (6-20) Glucose Level 107 mg/dL (70-99) 80 mg/dL (70-99) Calcium Level 9.0 mg/dL (8.5-10.1) 8.2 mg/dL (8.5-10.1) Total Bilirubin 0.4 mg/dL (0.2-1.0) Aspartate Amino Transf (AST/SGOT) 12 U/L (15-37) Alanine Aminotransferase (ALT/SGPT) 9 U/L (16-63) Alkaline Phosphatase 58 U/L (46-116) Troponin I Quantitative < 0.017 ng/mL (0.000-0.055) Total Protein 6.1 g/dL (6.4-8.2) Albumin 3.2 g/dL (3.4-5.0) Albumin/Globulin Ratio 1.1 (1.0-1.7) Lipase 216 U/L (73-393) Nasal Screen MRSA (PCR) Negative (Negative) Test 04/27/17 05:35 04/28/17 05:30 Thyroid Stimulating Hormone (TSH) 1.226 uIU/mL (0.358-3.74) White Blood Count 4.4 x10^3/uL (4.0-11.0) Red Blood Count 3.65 x10^6/uL (4.30-5.70) Hemoglobin 9.6 g/dL (13.0-17.5) Hematocrit 30.2 % (39.0-53.0) Mean Corpuscular Volume 83 fL (79-100) Mean Corpuscular Hemoglobin 26 pg (25-35) Mean Corpuscular Hemoglobin Concent 32 g/dL (31-37) Red Cell Distribution Width 22.5 % (11.5-14.5) Platelet Count 118 x10^3/uL (140-400) Neutrophils (%) (Auto) 57 % (31-73) Lymphocytes (%) (Auto) 32 % (24-48) Monocytes (%) (Auto) 9 % (0-9) Eosinophils (%) (Auto) 2 % (0-3) Basophils (%) (Auto) 1 % (0-3) Neutrophils # (Auto) 2.5 x10^3uL (1.8-7.7) Lymphocytes # (Auto) 1.4 x10^3/uL (1.0-4.8) Monocytes # (Auto) 0.4 x10^3/uL (0.0-1.1) Eosinophils # (Auto) 0.1 x10^3/uL (0.0-0.7) Basophils # (Auto) 0.0 x10^3/uL (0.0-0.2) Sodium Level 145 mmol/L (136-145) Potassium Level 3.0 mmol/L (3.5-5.1) Chloride Level 112 mmol/L (98-107) Carbon Dioxide Level 25 mmol/L (21-32) Anion Gap 8 (6-14) Blood Urea Nitrogen 12 mg/dL (8-26) Creatinine 0.6 mg/dL (0.7-1.3) Estimated GFR (Cockcroft-Gault) 127.4 Glucose Level 85 mg/dL (70-99) Calcium Level 8.0 mg/dL (8.5-10.1) Laboratory Tests Test 04/28/17 05:30 White Blood Count 4.4 x10^3/uL (4.0-11.0) Red Blood Count 3.65 x10^6/uL (4.30-5.70) Hemoglobin 9.6 g/dL (13.0-17.5) Hematocrit 30.2 % (39.0-53.0) Mean Corpuscular Volume 83 fL (79-100) Mean Corpuscular Hemoglobin 26 pg (25-35) Mean Corpuscular Hemoglobin Concent 32 g/dL (31-37) Red Cell Distribution Width 22.5 % (11.5-14.5) Platelet Count 118 x10^3/uL (140-400) Neutrophils (%) (Auto) 57 % (31-73) Lymphocytes (%) (Auto) 32 % (24-48) Monocytes (%) (Auto) 9 % (0-9) Eosinophils (%) (Auto) 2 % (0-3) Basophils (%) (Auto) 1 % (0-3) Neutrophils # (Auto) 2.5 x10^3uL (1.8-7.7) Lymphocytes # (Auto) 1.4 x10^3/uL (1.0-4.8) Monocytes # (Auto) 0.4 x10^3/uL (0.0-1.1) Eosinophils # (Auto) 0.1 x10^3/uL (0.0-0.7) Basophils # (Auto) 0.0 x10^3/uL (0.0-0.2) Sodium Level 145 mmol/L (136-145) Potassium Level 3.0 mmol/L (3.5-5.1) Chloride Level 112 mmol/L (98-107) Carbon Dioxide Level 25 mmol/L (21-32) Anion Gap 8 (6-14) Blood Urea Nitrogen 12 mg/dL (8-26) Creatinine 0.6 mg/dL (0.7-1.3) Estimated GFR (Cockcroft-Gault) 127.4 Glucose Level 85 mg/dL (70-99) Calcium Level 8.0 mg/dL (8.5-10.1) Meds Current Medications Cetirizine HCl (ZyrTEC) 5 mg DAILY PO Last administered on 04/27/17t 10:04; Start 04/27/17 at 09:00 Cholestyramine Resin (Questran Light) 4 gm BID PO ; Start 04/27/17 at 09:00 Donepezil HCl (Aricept) 5 mg QHS PO ; Start 04/27/17 at 21:00 Enoxaparin Sodium (Lovenox 40mg Syringe) 40 mg QHS SQ ; Start 04/27/17 at 21:00 Ferrous Sulfate (Feosol) 325 mg DAILY PO Last administered on 04/27/17 10:02; Start 04/27/17 at 09:00 Fish Oil (Fish Oil) 1,000 mg DAILY PO Last administered on 04/27/17 10:03; Start 04/27/17 at 09:00 Fluticasone Propionate (Flonase) 2 spray DAILY NS Last administered on 10:01; Start 04/27/17 at 09:00 Multivitamins (Thera M Plus) 1 tab DAILY PO Last administered on 04/27/17 10: 03; Start 04/27/17 at 09:00 Pantoprazole Sodium (Protonix) 40 mg BIDAC PO Last administered on 04/27/17 16 :52; Start 04/27/17 at 07:30 Potassium Chloride (Klor-Con) 20 meq 1X ONCE PO ; Start 04/27/17 at 20:15; Stop 04/27/17 at 20:16; Status DC Potassium Chloride (Klor-Con) 20 meq BID PO Last administered on 04/27/17 10: 03; Start 04/27/17 at 09:00 Potassium Chloride (Klor-Con) 40 meq 1X ONCE PO Last administered on 19:47; Start 04/27/17 at 18:15; Stop 04/27/17 at 18:16; Status DC Simvastatin (Zocor) 20 mg QHS PO ; Start 04/27/17 at 21:00 Spironolactone (Aldactone) 25 mg DAILY PO Last administered on 04/27/17 10:02 ; Start 04/27/17 at 09:00 Assessment Assessment 1. abdominal pain lower quads 2. anemia CD with recent GIB 3. severe weakness and debility 4. cholelithiasis 5. 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 HTN 8. GERD 9. chronic LBP with radiculopathy, DJD, and hyphosis with h/o back surgery 10. thrombocytopenia not POA 11. 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 check Mg diarrhea chronic, non infectious resume loperamide prn qid continue Questran 4gm qid weak/debility PT OT eval and treat DVT/GI prophylaxis Lovenox DC due to GIB history SCD/KRISH PPI No h/o AFIB For further plan of care, please refer to the orders. Plan Plan For more details regarding further plans, please refer to the orders. KASANDRA CEDILLO MD 04/28/17 1205: IM PROGRESS NOTES- Assessment Assessment Patient would like to go to a different facility. Consult clinical social work aide. Has no diarrhea.h/o chronic hypokalemia. The patient was seen and examined by me. Chart reviewed and plan of care formulated. Discussed with, reviewed and agree with JUNIOR ESTIMATOR's notes, plan of care and orders with modifications as necessary. For more details regarding further plans, please refer to the orders. CHIOMA CH APRN Apr 28, 2017 07:48 KASANDRA CEDILLO MD Apr 28, 2017 12:05
--- NOTE | 2017-04-28 08:36 | PDOC2 ---
GI CONSULT Reason For Consult: Abd pain, gallstones HPI: HPI: 86 y/o male well-known to Dr. Brock/GI, previous evaluations for diarrhea, anemia, black/heme positive stool. EGD and colonoscopy in 05/2016 showed severe reflux (no Valles's), hiatal hernia, normal stomach (no H. pylori), ? attenuated duodenal folds (no sprue), diverticulosis, hemorrhoids, and normal random colon biopsies. EGD in 01/2017 revealed severe esophagitis and small hiatal hernia. Anemia thought likely to be related to small bowel angiodysplasiae. Has been on PPI (BID) and PO iron, also Imodium and cholestyramine. On this occasion admitted through ER from living facility for weakness and dehydration, questionable abdominal pain. Per RN, no GI complaints this morning. Suspect historian, but today the pt denies abdominal pain, diarrhea, n/v, GERD. Tells me eating and stooling well. CT as below noted gallstones, known. Hgb not outside his usual range, note new thrombocytopenia. PMH: PMH: GERD, hiatal hernia, diarrhea, diverticulosis, hemorrhoids, cholelithiasis, HLD , HTN, pulmonary hypertension, CKD, DVT RLE, varicose veins, anemia chronic disease, low back pain, allergic rhinitis, urinary incontinence, DDD, lumbar laminectomy w/ fusion, skin cancer, IVC filter FH: Family History: No pertinent hx Social History: ALCOHOL: none Drugs: None ROS: Difficult to obtain. GEN: +fatigue HEENT: Denies blurred vision, sore throat CV: Denies chest pain RESP: Denies shortness of air, cough GI: Per HPI : Denies hematuria, dysuria ENDO: Denies weight changes NEURO: Denies confusion, dizziness MSK: +weakness SKIN: Denies jaundice, pruritus Vitals: Vitals: Vital Signs Date Time Temp Pulse Resp B/P (MAP) Pulse Ox O2 Delivery O2 Flow Rate FiO2 04/28/17 07:00 98.1 72 16 105/41 (62) 98 Room Air 98.1 Labs: Labs: Laboratory Tests Test 04/28/17 05:30 White Blood Count 4.4 x10^3/uL (4.0-11.0) Red Blood Count 3.65 x10^6/uL (4.30-5.70) Hemoglobin 9.6 g/dL (13.0-17.5) Hematocrit 30.2 % (39.0-53.0) Mean Corpuscular Volume 83 fL (79-100) Mean Corpuscular Hemoglobin 26 pg (25-35) Mean Corpuscular Hemoglobin Concent 32 g/dL (31-37) Red Cell Distribution Width 22.5 % (11.5-14.5) Platelet Count 118 x10^3/uL (140-400) Neutrophils (%) (Auto) 57 % (31-73) Lymphocytes (%) (Auto) 32 % (24-48) Monocytes (%) (Auto) 9 % (0-9) Eosinophils (%) (Auto) 2 % (0-3) Basophils (%) (Auto) 1 % (0-3) Neutrophils # (Auto) 2.5 x10^3uL (1.8-7.7) Lymphocytes # (Auto) 1.4 x10^3/uL (1.0-4.8) Monocytes # (Auto) 0.4 x10^3/uL (0.0-1.1) Eosinophils # (Auto) 0.1 x10^3/uL (0.0-0.7) Basophils # (Auto) 0.0 x10^3/uL (0.0-0.2) Sodium Level 145 mmol/L (136-145) Potassium Level 3.0 mmol/L (3.5-5.1) Chloride Level 112 mmol/L (98-107) Carbon Dioxide Level 25 mmol/L (21-32) Anion Gap 8 (6-14) Blood Urea Nitrogen 12 mg/dL (8-26) Creatinine 0.6 mg/dL (0.7-1.3) Estimated GFR (Cockcroft-Gault) 127.4 Glucose Level 85 mg/dL (70-99) Calcium Level 8.0 mg/dL (8.5-10.1) Allergies: Coded Allergies: No Known Drug Allergies (Unverified , 02/10/17) Medications: Current Medications Medications (Trade) Dose Ordered Sig/[place] Route PRN Reason Start Time Stop Time Status Last Admin Dose Admin Cetirizine HCl (ZyrTEC) 5 mg DAILY PO 04/27/17 09:00 04/27/17 10:04 Ferrous Sulfate (Feosol) 325 mg DAILY PO 04/27/17 09:00 04/27/17 10:02 Fish Oil (Fish Oil) 1,000 mg DAILY PO 04/27/17 09:00 04/27/17 10:03 Potassium Chloride (Klor-Con) 20 meq BID PO 04/27/17 09:00 04/27/17 10:03 Spironolactone (Aldactone) 25 mg DAILY PO 04/27/17 09:00 04/27/17 10:02 Fluticasone Propionate (Flonase) 2 spray DAILY NS 04/27/17 09:00 04/27/17 10:01 Multivitamins (Thera M Plus) 1 tab DAILY PO 04/27/17 09:00 04/27/17 10:03 Potassium Chloride (Klor-Con) 40 meq 1X ONCE PO 04/27/17 18:15 04/27/17 18:16 DC 04/27/17 19:47 Imaging: Imaging: CXR Impression: No acute cardiopulmonary process. CT A/P IMPRESSION: 1. Cholelithiasis. 2. Sigmoid diverticulosis. 3. An inferior vena cava filter is in place. 4. Small hiatal hernia. 5. No acute abdominal or pelvic abnormality is detected. PE: GEN: NAD HEENT: Atraumatic, PERRL LUNGS: CTAB HEART: RRR ABD: NABS, S/ND/NT EXTREMITY: No edema SKIN: No rashes, no jaundice NEURO/PSYCH: A & O 3, flat A/P: A/P: Abdominal pain -not clear if ever had pain - denied in ER, denied to me; difficult history Chronic anemia -Hgb stable -previous/recent GI as above, has GERD, suspect small bowel angiodysplasiae as well -on PPI and iron Thrombocytopenia Chronic diarrhea -no complaints per pt, 1 stool charted, on Imodium and cholestyramine Cholelithiasis -seems incidental finding/asymptomatic Weakness -- Continue same, will review w/ Dr. Brock. AMADOU ROSE Apr 28, 2017 08:36
[2017-04-28] MEDS: SPIRONOLACTONE 25 MG TABLET PO SCH (08:53)
[2017-04-28] MEDS: CHOLESTYRAMINE/ASPARTAME 4 GM PACKET PO SCH ×2 (08:55→20:35)
[2017-04-28] MEDS: OMEGA-3 FATTY ACIDS/FISH OIL 1,000 MG CAPSULE. PO SCH (08:56)
[2017-04-28] MEDS: POTASSIUM CHLORIDE 20 MEQ TABLET.ER. PO SCH ×2 (08:56→20:34)
[2017-04-28] MEDS: FERROUS SULFATE 325 MG TABLET. PO SCH (08:56)
[2017-04-28] MEDS: MULTIVITAMIN with MINERAL TABLET. PO SCH (08:56)
[2017-04-28] MEDS: CETIRIZINE HCL 10 MG TABLET. PO SCH (08:57)
[2017-04-28] MEDS: FLUTICASONE 50MCG/NASAL SPRAY 16GM BOTTLE. NS SCH (08:57)
[2017-04-28] MEDS ORDERED: POTASSIUM CHLORIDE 20 MEQ TABLET.ER. PO ONE ×2 (09:00→21:00)
[2017-04-28] MEDS: oxyCODONE ER 10 MG TAB.ER.12H PO SCH ×2 (09:00→20:35)
[2017-04-28 11:00] VITALS: BP 107/54
[2017-04-28 11:25] LABS: NEG OBC FOB NEG; POS OBC FOB POS
[2017-04-28 15:00] VITALS: BP 102/44
--- NOTE | 2017-04-28 15:55 | PDOC2 ---
CONSULT Date of Consult Date of Consult DATE: 04/28/17 TIME: 15:47 Reason for Consult Reason for Consult: rehab evaluation Referring Physician Referring Physician: Identification/Chief Complaint Chief Complaint Low physical endurance. Problems: Source Source: Chart review, Patient History of Present Illness Reason for Visit: He was admitted from assisted living facility for treatment of dehydration from loose stools.He denies any pain. Past Medical History Cardiovascular: HTN, Hyperlipidemia, Pulmonary hypertension, Other GI: Diverticulosis, GERD, Hemorrhoids Heme/Onc: Anemia NOS Musculoskeletal: low back pain, Other Renal/: Urinary Incontinence Family History Family History: No Significant Social History ALCOHOL: none Drugs: None Lives: Roommate Current Problem List Problem List Problems Medical Problems: (1) Severe dehydration Status: Acute Current Medications Current Medications Current Medications Sodium Chloride 500 ml @ 500 mls/hr 1X ONCE IV Last administered on 15:00; Start 04/26/17 at 13:15; Stop 04/26/17 at 14:14; Status DC Iohexol (Omnipaque 300 Mg/ml) 75 ml 1X ONCE IV Last administered on 04/26/17 15:18; Start 04/26/17 at 13:30; Stop 04/26/17 at 13:31; Status DC Info (Do NOT chart on this entry -- for MONITORING) 1 each PRN DAILY PRN MC SEE COMMENTS; Start 04/26/17 at 13:45; Stop 04/28/17 at 13:44; Status DC Sodium Chloride 1,000 ml @ 150 mls/hr Q6H40M IV Last administered on 11:27; Start 04/26/17 at 15:46; Stop 04/27/17 at 15:45; Status DC Acetaminophen (Tylenol) 500 mg PRN Q6HRS PRN PO MILD PAIN / TEMP; Start at 23:30 Cetirizine HCl (ZyrTEC) 5 mg DAILY PO Last administered on 04/28/17 08:57; Start 04/27/17 at 09:00 Donepezil HCl (Aricept) 5 mg QHS PO ; Start 04/27/17 at 21:00 Ferrous Sulfate (Feosol) 325 mg DAILY PO Last administered on 04/28/17 08:56; Start 04/27/17 at 09:00 Fish Oil (Fish Oil) 1,000 mg DAILY PO Last administered on 04/28/17 08:56; Start 04/27/17 at 09:00 Pantoprazole Sodium (Protonix) 40 mg BIDAC PO Last administered on 04/28/17 07 :47; Start 04/27/17 at 07:30 Potassium Chloride (Klor-Con) 20 meq BID PO Last administered on 04/28/17 08: 56; Start 04/27/17 at 09:00 Simvastatin (Zocor) 20 mg QHS PO ; Start 04/27/17 at 21:00 Spironolactone (Aldactone) 25 mg DAILY PO Last administered on 04/27/17 10:02 ; Start 04/27/17 at 09:00 Non-Formulary Medication 2 puff QID PRN INH WHEEZING; Start 04/26/17 at 23:30; Status UNV Cholestyramine Resin (Questran Light) 4 gm BID PO Last administered on 08:55; Start 04/27/17 at 09:00 Fluticasone Propionate (Flonase) 2 spray DAILY NS Last administered on 08:57; Start 04/27/17 at 09:00 Multivitamins (Thera M Plus) 1 tab DAILY PO Last administered on 04/28/17 08: 56; Start 04/27/17 at 09:00 Enoxaparin Sodium (Lovenox 40mg Syringe) 40 mg QHS SQ ; Start 04/27/17 at 21:00 ; Stop 04/28/17 at 07:44; Status DC Albuterol Sulfate (Ventolin Neb Soln) 2.5 mg PRN Q6HRS PRN NEB SHORTNESS OF BREATH; Start 04/26/17 at 23:45 Potassium Chloride (Klor-Con) 40 meq 1X ONCE PO Last administered on 19:47; Start 04/27/17 at 18:15; Stop 04/27/17 at 18:16; Status DC Potassium Chloride (Klor-Con) 20 meq 1X ONCE PO ; Start 04/27/17 at 20:15; Stop 04/27/17 at 20:16; Status DC Loperamide HCl (Imodium) 2 mg PRN QID PRN PO DIARRHEA; Start 04/28/17 at 07:45 Oxycodone HCl (OxyCONTIN) 20 mg Q12HR PO ; Start 04/28/17 at 09:00 Potassium Chloride (Klor-Con) 20 meq 1X ONCE PO Last administered on t 08:56; Start 04/28/17 at 09:00; Stop 04/28/17 at 09:01; Status DC Potassium Chloride (Klor-Con) 20 meq 1X ONCE PO ; Start 04/28/17 at 21:00; Stop 04/28/17 at 21:01 Active Scripts Active Ferrous Sulfate 325 Mg Tablet 1 Tab PO DAILY Questran Packet (Cholestyramine (With Sugar)) 4 Gm Powd.pack 4 Gm PO BID Pantoprazole Sodium 40 Mg Tablet.dr 40 Mg PO BIDAC Mapap (Acetaminophen) 500 Mg Tablet 500 Mg PO PRN Q6HRS PRN Reported Anti-Diarrhea (Loperamide Hcl) 2 Mg Tablet 2 Mg PO PRN PRN Cetirizine Hcl 10 Mg Tablet 5 Mg PO DAILY Aricept (Donepezil Hcl) 5 Mg Tablet 1 Tab PO QHS Ventolin Hfa Inhaler (Albuterol Sulfate) 18 Gm Hfa.aer.ad 2 Puff INH QID PRN Flonase Allergy Relief (Fluticasone Propionate) 9.9 Ml [place].susp 2 Sprays NS DAILY Simvastatin 20 Mg Tablet 1 Tab PO QHS Spironolactone 25 Mg Tablet 1 Tab PO DAILY Klor-Con M20 (Potassium Chloride) 20 Meq Tab.er.prt 1 Tab PO BID Fish Oil 1,000 Mg Capsule ([place]-3 Fatty Acids/Fish Oil) 1 Each Capsule 1 Each PO DAILY Centrum Multivitamin Tab Chew (Folic Acid/Mv,Fe,Other Min) 1 Each Tab.chew 1 Each PO DAILY Oxycontin (Oxycodone HCl) 20 Mg Tab.er.12h 1 Tab PO Q12HR Allergies Allergies: Coded Allergies: No Known Drug Allergies (Unverified , 02/10/17) Physical Exam General: Alert, Oriented X3, Cooperative, No acute distress Lungs: Clear to auscultation, Normal air movement Extremities: No clubbing, No cyanosis, No edema, Normal pulses, No tenderness/ swelling Skin: No rashes, No breakdown Neuro: Other (He had 4+/5 grade muscle strength overall and he had crepitus on ROM of his knees without any pain and he had 1-2 + DTRs overall and he is independent with bed mobility.) Vitals VITALS Vital Signs Date Time Temp Pulse Resp B/P (MAP) Pulse Ox O2 Delivery O2 Flow Rate FiO2 04/28/17 15:00 98.0 69 18 102/44 (63) 96 Room Air 98.0 Labs Labs Laboratory Tests Test 04/26/17 19:50 04/27/17 04:35 04/27/17 05:35 04/28/17 05:30 Nasal Screen MRSA (PCR) Negative (Negative) White Blood Count 4.5 x10^3/uL (4.0-11.0) 4.4 x10^3/uL (4.0-11.0) Red Blood Count 3.81 x10^6/uL (4.30-5.70) 3.65 x10^6/uL (4.30-5.70) Hemoglobin 10.4 g/dL (13.0-17.5) 9.6 g/dL (13.0-17.5) Hematocrit 30.9 % (39.0-53.0) 30.2 % (39.0-53.0) Mean Corpuscular Volume 81 fL (79-100) 83 fL (79-100) Mean Corpuscular Hemoglobin 27 pg (25-35) 26 pg (25-35) Mean Corpuscular Hemoglobin Concent 34 g/dL (31-37) 32 g/dL (31-37) Red Cell Distribution Width 22.4 % (11.5-14.5) 22.5 % (11.5-14.5) Platelet Count 133 x10^3/uL (140-400) 118 x10^3/uL (140-400) Neutrophils (%) (Auto) 67 % (31-73) 57 % (31-73) Lymphocytes (%) (Auto) 23 % (24-48) 32 % (24-48) Monocytes (%) (Auto) 9 % (0-9) 9 % (0-9) Eosinophils (%) (Auto) 0 % (0-3) 2 % (0-3) Basophils (%) (Auto) 0 % (0-3) 1 % (0-3) Neutrophils # (Auto) 3.0 x10^3uL (1.8-7.7) 2.5 x10^3uL (1.8-7.7) Lymphocytes # (Auto) 1.0 x10^3/uL (1.0-4.8) 1.4 x10^3/uL (1.0-4.8) Monocytes # (Auto) 0.4 x10^3/uL (0.0-1.1) 0.4 x10^3/uL (0.0-1.1) Eosinophils # (Auto) 0.0 x10^3/uL (0.0-0.7) 0.1 x10^3/uL (0.0-0.7) Basophils # (Auto) 0.0 x10^3/uL (0.0-0.2) 0.0 x10^3/uL (0.0-0.2) Sodium Level 147 mmol/L (136-145) 145 mmol/L (136-145) Potassium Level 3.1 mmol/L (3.5-5.1) 3.0 mmol/L (3.5-5.1) Chloride Level 112 mmol/L (98-107) 112 mmol/L (98-107) Carbon Dioxide Level 26 mmol/L (21-32) 25 mmol/L (21-32) Anion Gap 9 (6-14) 8 (6-14) Blood Urea Nitrogen 24 mg/dL (8-26) 12 mg/dL (8-26) Creatinine 0.7 mg/dL (0.7-1.3) 0.6 mg/dL (0.7-1.3) Estimated GFR (Cockcroft-Gault) 106.7 127.4 Glucose Level 80 mg/dL (70-99) 85 mg/dL (70-99) Calcium Level 8.2 mg/dL (8.5-10.1) 8.0 mg/dL (8.5-10.1) Thyroid Stimulating Hormone (TSH) 1.226 uIU/mL (0.358-3.74) Test 04/28/17 10:55 Stool Occult Blood Negative (NEG) Laboratory Tests Test 04/28/17 05:30 04/28/17 10:55 White Blood Count 4.4 x10^3/uL (4.0-11.0) Red Blood Count 3.65 x10^6/uL (4.30-5.70) Hemoglobin 9.6 g/dL (13.0-17.5) Hematocrit 30.2 % (39.0-53.0) Mean Corpuscular Volume 83 fL (79-100) Mean Corpuscular Hemoglobin 26 pg (25-35) Mean Corpuscular Hemoglobin Concent 32 g/dL (31-37) Red Cell Distribution Width 22.5 % (11.5-14.5) Platelet Count 118 x10^3/uL (140-400) Neutrophils (%) (Auto) 57 % (31-73) Lymphocytes (%) (Auto) 32 % (24-48) Monocytes (%) (Auto) 9 % (0-9) Eosinophils (%) (Auto) 2 % (0-3) Basophils (%) (Auto) 1 % (0-3) Neutrophils # (Auto) 2.5 x10^3uL (1.8-7.7) Lymphocytes # (Auto) 1.4 x10^3/uL (1.0-4.8) Monocytes # (Auto) 0.4 x10^3/uL (0.0-1.1) Eosinophils # (Auto) 0.1 x10^3/uL (0.0-0.7) Basophils # (Auto) 0.0 x10^3/uL (0.0-0.2) Sodium Level 145 mmol/L (136-145) Potassium Level 3.0 mmol/L (3.5-5.1) Chloride Level 112 mmol/L (98-107) Carbon Dioxide Level 25 mmol/L (21-32) Anion Gap 8 (6-14) Blood Urea Nitrogen 12 mg/dL (8-26) Creatinine 0.6 mg/dL (0.7-1.3) Estimated GFR (Cockcroft-Gault) 127.4 Glucose Level 85 mg/dL (70-99) Calcium Level 8.0 mg/dL (8.5-10.1) Stool Occult Blood Negative (NEG) Assessment/Plan Assessment/Plan Mobility and self care limitations from deconditioned state. Rec: Agree with plans for transfer to assisted living facility when medically stable with home health follow up. NEPTALI VICK MD Apr 28, 2017 15:54
[2017-04-28 19:00] VITALS: BP 92/44
[2017-04-28] MEDS: DONEPEZIL HCL 5 MG TABLET. PO SCH (20:34)
[2017-04-28] MEDS: SIMVASTATIN 20 MG TABLET PO SCH (20:35)
[2017-04-28 23:00] VITALS: BP 104/45
[2017-04-29 03:20] VITALS: BP 92/45
[2017-04-29 05:15] LABS: BASO % 0 % (0-3); EOS % 2 % (0-3); HEMATOCRIT 32.4 % (39.0-53.0); HEMOGLOBIN 10.5 g/dL (13.0-17.5); LYMPH # 1.5 x10^3/uL (1.0-4.8); LYMPH % 31 % (24-48); MEAN CORPUSCULAR HEMOGLOBIN 27 pg (25-35); MEAN CORPUSCULAR HGB CONC 33 g/dL (31-37); MEAN CORPUSCULAR VOLUME 82 fL (79-100); MONO % 7 % (0-9); NEUT % 59 % (31-73); PLATELET COUNT 141 x10^3/uL (140-400); RED BLOOD COUNT 3.94 x10^6/uL (4.30-5.70); RED CELL DISTRIBUTION WIDTH 22.5 % (11.5-14.5); WHITE BLOOD COUNT 4.9 x10^3/uL (4.0-11.0)
[2017-04-29 05:38] LABS: CREATININE 0.6 mg/dL (0.7-1.3); GFR 127.4; MAGNESIUM 1.8 mg/dL (1.8-2.4)
[2017-04-29 05:44] LABS: POTASSIUM 2.8 mmol/L (3.5-5.1)
[2017-04-29 07:00] VITALS: BP 114/57
--- NOTE | 2017-04-29 07:23 | PDOC ---
SEBASTIENErinCHIOMA DUNC[facility] THE[employer] SPECIALIST 04/29/17 0723: IM PROGRESS NOTES- Subjective Subjective diarrhea improved, no back or abdominal pain Staff reports refuses evening medications but will take meds during day. Did not take potassium last night. Also no c/o back pain and sleepy on oxycontin. Objective Objective alert, appropriate Vitals Vital Signs Date Time Temp Pulse Resp B/P (MAP) Pulse Ox O2 Delivery O2 Flow Rate FiO2 04/29/17 03:20 98.0 67 18 92/45 (61) 97 Room Air 98.0 Input & Output Intake and Output 04/29/17 07:00 Intake Total 1075 ml Balance 1075 ml Intake Oral 1075 ml # Voids 2 # Bowel Movements 1 Physical Exam Physical Exam General appearance - alert, chronically ill appearing, thin and in no distress Mental Status - alert, oriented to person, place, and time, affect appropriate to mood Head - normal Chest - clear to auscultation, no wheezes, rales or rhonchi, symmetric air entry Heart - S1 and S2 normal Abdomen - soft, nontender, nondistended, no masses or organomegaly Neurological - no acute focal neurological deficits noted. Musculoskeletal - no muscular tenderness noted Extremities - no pedal edema Skin - warm and dry Labs Laboratory Tests Test 04/28/17 05:30 04/28/17 10:55 04/29/17 03:02 White Blood Count 4.4 x10^3/uL (4.0-11.0) 4.9 x10^3/uL (4.0-11.0) Red Blood Count 3.65 x10^6/uL (4.30-5.70) 3.94 x10^6/uL (4.30-5.70) Hemoglobin 9.6 g/dL (13.0-17.5) 10.5 g/dL (13.0-17.5) Hematocrit 30.2 % (39.0-53.0) 32.4 % (39.0-53.0) Mean Corpuscular Volume 83 fL (79-100) 82 fL (79-100) Mean Corpuscular Hemoglobin 26 pg (25-35) 27 pg (25-35) Mean Corpuscular Hemoglobin Concent 32 g/dL (31-37) 33 g/dL (31-37) Red Cell Distribution Width 22.5 % (11.5-14.5) 22.5 % (11.5-14.5) Platelet Count 118 x10^3/uL (140-400) 141 x10^3/uL (140-400) Neutrophils (%) (Auto) 57 % (31-73) 59 % (31-73) Lymphocytes (%) (Auto) 32 % (24-48) 31 % (24-48) Monocytes (%) (Auto) 9 % (0-9) 7 % (0-9) Eosinophils (%) (Auto) 2 % (0-3) 2 % (0-3) Basophils (%) (Auto) 1 % (0-3) 0 % (0-3) Neutrophils # (Auto) 2.5 x10^3uL (1.8-7.7) 2.9 x10^3uL (1.8-7.7) Lymphocytes # (Auto) 1.4 x10^3/uL (1.0-4.8) 1.5 x10^3/uL (1.0-4.8) Monocytes # (Auto) 0.4 x10^3/uL (0.0-1.1) 0.4 x10^3/uL (0.0-1.1) Eosinophils # (Auto) 0.1 x10^3/uL (0.0-0.7) 0.1 x10^3/uL (0.0-0.7) Basophils # (Auto) 0.0 x10^3/uL (0.0-0.2) 0.0 x10^3/uL (0.0-0.2) Sodium Level 145 mmol/L (136-145) 145 mmol/L (136-145) Potassium Level 3.0 mmol/L (3.5-5.1) 2.8 mmol/L (3.5-5.1) Chloride Level 112 mmol/L (98-107) 110 mmol/L (98-107) Carbon Dioxide Level 25 mmol/L (21-32) 25 mmol/L (21-32) Anion Gap 8 (6-14) 10 (6-14) Blood Urea Nitrogen 12 mg/dL (8-26) 12 mg/dL (8-26) Creatinine 0.6 mg/dL (0.7-1.3) 0.6 mg/dL (0.7-1.3) Estimated GFR (Cockcroft-Gault) 127.4 127.4 Glucose Level 85 mg/dL (70-99) 78 mg/dL (70-99) Calcium Level 8.0 mg/dL (8.5-10.1) 8.0 mg/dL (8.5-10.1) Stool Occult Blood Negative (NEG) Magnesium Level 1.8 mg/dL (1.8-2.4) Laboratory Tests Test 04/28/17 10:55 04/29/17 03:02 Stool Occult Blood Negative (NEG) White Blood Count 4.9 x10^3/uL (4.0-11.0) Red Blood Count 3.94 x10^6/uL (4.30-5.70) Hemoglobin 10.5 g/dL (13.0-17.5) Hematocrit 32.4 % (39.0-53.0) Mean Corpuscular Volume 82 fL (79-100) Mean Corpuscular Hemoglobin 27 pg (25-35) Mean Corpuscular Hemoglobin Concent 33 g/dL (31-37) Red Cell Distribution Width 22.5 % (11.5-14.5) Platelet Count 141 x10^3/uL (140-400) Neutrophils (%) (Auto) 59 % (31-73) Lymphocytes (%) (Auto) 31 % (24-48) Monocytes (%) (Auto) 7 % (0-9) Eosinophils (%) (Auto) 2 % (0-3) Basophils (%) (Auto) 0 % (0-3) Neutrophils # (Auto) 2.9 x10^3uL (1.8-7.7) Lymphocytes # (Auto) 1.5 x10^3/uL (1.0-4.8) Monocytes # (Auto) 0.4 x10^3/uL (0.0-1.1) Eosinophils # (Auto) 0.1 x10^3/uL (0.0-0.7) Basophils # (Auto) 0.0 x10^3/uL (0.0-0.2) Sodium Level 145 mmol/L (136-145) Potassium Level 2.8 mmol/L (3.5-5.1) Chloride Level 110 mmol/L (98-107) Carbon Dioxide Level 25 mmol/L (21-32) Anion Gap 10 (6-14) Blood Urea Nitrogen 12 mg/dL (8-26) Creatinine 0.6 mg/dL (0.7-1.3) Estimated GFR (Cockcroft-Gault) 127.4 Glucose Level 78 mg/dL (70-99) Calcium Level 8.0 mg/dL (8.5-10.1) Magnesium Level 1.8 mg/dL (1.8-2.4) Meds Current Medications Loperamide HCl (Imodium) 2 mg PRN QID PRN PO DIARRHEA; Start 04/28/17 at 07:45 Oxycodone HCl (OxyCONTIN) 20 mg Q12HR PO ; Start 04/28/17 at 09:00 Potassium Chloride (Klor-Con) 20 meq 1X ONCE PO Last administered on t 08:56; Start 04/28/17 at 09:00; Stop 04/28/17 at 09:01; Status DC Potassium Chloride (Klor-Con) 20 meq 1X ONCE PO ; Start 04/28/17 at 21:00; Stop 04/28/17 at 21:01; Status DC Potassium Chloride (Klor-Con) 40 meq 1X ONCE PO ; Start 04/29/17 at 07:30; Stop 04/29/17 at 07:31 Potassium Chloride (Klor-Con) 40 meq 1X ONCE PO ; Start 04/29/17 at 09:30; Stop 04/29/17 at 09:31 Assessment Assessment Assessment 1. abdominal pain lower quads resolved etiology unclear 2. anemia CD with recent GIB 3. severe weakness and debility 4. cholelithiasis 5. 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 HTN 8. GERD 9. chronic LBP with radiculopathy, DJD, and hyphosis with h/o back surgery 10. thrombocytopenia not POA 11. 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 check Mg 04/29 KCL 80 meq bid today per Dr. Manuel Will resume home dose potassium 04/30 and administer during day and will eval all night meds to change to evening. diarrhea chronic, non infectious resume loperamide prn qid continue Questran 4gm qid resolved weak/debility PT OT eval and treat DVT/GI prophylaxis Lovenox DC due to GIB history SCD/KRISH PPI No h/o AFIB For further plan of care, please refer to the orders. Plan Plan For more details regarding further plans, please refer to the orders. Nutrition Consultation Dietary Evaluation: Recommendations by RD: Protein supplementation Comments: vanilla boost pudding bid Expected Outcomes/Goals: to meet > 75% est nutr needs Interpretation of weight loss: >5% in 1 month Malnutrition Findings: Body Fat Depletion (Non Severe: Mild Depletion Weight Status: Appropriate KASANDRA CEDILLO MD 04/29/17 1003: IM PROGRESS NOTES- Assessment Assessment chronic hypokalemia- d/w staff- not to hold Spironolactone. Replace k. Feels weak. The patient was seen and examined by me. Chart reviewed and plan of care formulated. Discussed with, reviewed and agree with PODIATRIST's notes, plan of care and orders with modifications as necessary. For more details regarding further plans, please refer to the orders. CHIOMA CH APRN Apr 29, 2017 07:23 KASANDRA CEDILLO MD Apr 29, 2017 10:03
[2017-04-29] MEDS ORDERED: POTASSIUM CHLORIDE 20 MEQ TABLET.ER. PO ONE ×2 (07:30→09:30)
[2017-04-29] MEDS ORDERED: oxyCODONE IR 5 MG TABLET PO PRN (07:30)
[2017-04-29] MEDS: PANTOPRAZOLE 40 MG TABLET.DR. PO SCH ×2 (07:56→16:41)
[2017-04-29] MEDS: CETIRIZINE HCL 10 MG TABLET. PO SCH (08:28)
[2017-04-29] MEDS: MULTIVITAMIN with MINERAL TABLET. PO SCH (08:28)
[2017-04-29] MEDS: OMEGA-3 FATTY ACIDS/FISH OIL 1,000 MG CAPSULE. PO SCH (08:28)
[2017-04-29] MEDS: FERROUS SULFATE 325 MG TABLET. PO SCH (08:28)
[2017-04-29] MEDS: CHOLESTYRAMINE/ASPARTAME 4 GM PACKET PO SCH ×2 (08:28→14:07)
[2017-04-29] MEDS: FLUTICASONE 50MCG/NASAL SPRAY 16GM BOTTLE. NS SCH (08:30)
[2017-04-29] MEDS: POTASSIUM CHLORIDE 20 MEQ TABLET.ER. PO SCH ×3 (09:00→17:31)
[2017-04-29] MEDS: SPIRONOLACTONE 25 MG TABLET PO SCH (09:34)
--- NOTE | 2017-04-29 10:38 | PDOC ---
PROGRESS NOTES Subjective Subjective He denies any pain. Objective Objective Vital Signs Date Time Temp Pulse Resp B/P (MAP) Pulse Ox O2 Delivery O2 Flow Rate FiO2 04/29/17 08:00 Room Air 04/29/17 07:00 97.9 67 16 114/57 (76) 97 97.9 Intake and Output 04/29/17 07:00 Intake Total 1075 ml Balance 1075 ml Intake Oral 1075 ml # Voids 2 # Bowel Movements 1 Physical Exam Physical Exam He is comfortable supine in bed and he is independent with bed mobility and transfers. Assessment Assessment Problems Medical Problems: (1) Severe dehydration Status: Acute Plan Plan of Care To assisted living facility with home health follow up when medically stable. Comment Review of Relevant I have reviewed the following items kathy (where applicable) has been applied. Labs Laboratory Tests Test 04/28/17 05:30 04/28/17 10:55 04/29/17 03:02 White Blood Count 4.4 x10^3/uL (4.0-11.0) 4.9 x10^3/uL (4.0-11.0) Red Blood Count 3.65 x10^6/uL (4.30-5.70) 3.94 x10^6/uL (4.30-5.70) Hemoglobin 9.6 g/dL (13.0-17.5) 10.5 g/dL (13.0-17.5) Hematocrit 30.2 % (39.0-53.0) 32.4 % (39.0-53.0) Mean Corpuscular Volume 83 fL (79-100) 82 fL (79-100) Mean Corpuscular Hemoglobin 26 pg (25-35) 27 pg (25-35) Mean Corpuscular Hemoglobin Concent 32 g/dL (31-37) 33 g/dL (31-37) Red Cell Distribution Width 22.5 % (11.5-14.5) 22.5 % (11.5-14.5) Platelet Count 118 x10^3/uL (140-400) 141 x10^3/uL (140-400) Neutrophils (%) (Auto) 57 % (31-73) 59 % (31-73) Lymphocytes (%) (Auto) 32 % (24-48) 31 % (24-48) Monocytes (%) (Auto) 9 % (0-9) 7 % (0-9) Eosinophils (%) (Auto) 2 % (0-3) 2 % (0-3) Basophils (%) (Auto) 1 % (0-3) 0 % (0-3) Neutrophils # (Auto) 2.5 x10^3uL (1.8-7.7) 2.9 x10^3uL (1.8-7.7) Lymphocytes # (Auto) 1.4 x10^3/uL (1.0-4.8) 1.5 x10^3/uL (1.0-4.8) Monocytes # (Auto) 0.4 x10^3/uL (0.0-1.1) 0.4 x10^3/uL (0.0-1.1) Eosinophils # (Auto) 0.1 x10^3/uL (0.0-0.7) 0.1 x10^3/uL (0.0-0.7) Basophils # (Auto) 0.0 x10^3/uL (0.0-0.2) 0.0 x10^3/uL (0.0-0.2) Sodium Level 145 mmol/L (136-145) 145 mmol/L (136-145) Potassium Level 3.0 mmol/L (3.5-5.1) 2.8 mmol/L (3.5-5.1) Chloride Level 112 mmol/L (98-107) 110 mmol/L (98-107) Carbon Dioxide Level 25 mmol/L (21-32) 25 mmol/L (21-32) Anion Gap 8 (6-14) 10 (6-14) Blood Urea Nitrogen 12 mg/dL (8-26) 12 mg/dL (8-26) Creatinine 0.6 mg/dL (0.7-1.3) 0.6 mg/dL (0.7-1.3) Estimated GFR (Cockcroft-Gault) 127.4 127.4 Glucose Level 85 mg/dL (70-99) 78 mg/dL (70-99) Calcium Level 8.0 mg/dL (8.5-10.1) 8.0 mg/dL (8.5-10.1) Stool Occult Blood Negative (NEG) Magnesium Level 1.8 mg/dL (1.8-2.4) Laboratory Tests Test 04/28/17 10:55 04/29/17 03:02 Stool Occult Blood Negative (NEG) White Blood Count 4.9 x10^3/uL (4.0-11.0) Red Blood Count 3.94 x10^6/uL (4.30-5.70) Hemoglobin 10.5 g/dL (13.0-17.5) Hematocrit 32.4 % (39.0-53.0) Mean Corpuscular Volume 82 fL (79-100) Mean Corpuscular Hemoglobin 27 pg (25-35) Mean Corpuscular Hemoglobin Concent 33 g/dL (31-37) Red Cell Distribution Width 22.5 % (11.5-14.5) Platelet Count 141 x10^3/uL (140-400) Neutrophils (%) (Auto) 59 % (31-73) Lymphocytes (%) (Auto) 31 % (24-48) Monocytes (%) (Auto) 7 % (0-9) Eosinophils (%) (Auto) 2 % (0-3) Basophils (%) (Auto) 0 % (0-3) Neutrophils # (Auto) 2.9 x10^3uL (1.8-7.7) Lymphocytes # (Auto) 1.5 x10^3/uL (1.0-4.8) Monocytes # (Auto) 0.4 x10^3/uL (0.0-1.1) Eosinophils # (Auto) 0.1 x10^3/uL (0.0-0.7) Basophils # (Auto) 0.0 x10^3/uL (0.0-0.2) Sodium Level 145 mmol/L (136-145) Potassium Level 2.8 mmol/L (3.5-5.1) Chloride Level 110 mmol/L (98-107) Carbon Dioxide Level 25 mmol/L (21-32) Anion Gap 10 (6-14) Blood Urea Nitrogen 12 mg/dL (8-26) Creatinine 0.6 mg/dL (0.7-1.3) Estimated GFR (Cockcroft-Gault) 127.4 Glucose Level 78 mg/dL (70-99) Calcium Level 8.0 mg/dL (8.5-10.1) Magnesium Level 1.8 mg/dL (1.8-2.4) Medications Current Medications Sodium Chloride 500 ml @ 500 mls/hr 1X ONCE IV Last administered on 15:00; Start 04/26/17 at 13:15; Stop 04/26/17 at 14:14; Status DC Iohexol (Omnipaque 300 Mg/ml) 75 ml 1X ONCE IV Last administered on 04/26/17 15:18; Start 04/26/17 at 13:30; Stop 04/26/17 at 13:31; Status DC Info (Do NOT chart on this entry -- for MONITORING) 1 each PRN DAILY PRN MC SEE COMMENTS; Start 04/26/17 at 13:45; Stop 04/28/17 at 13:44; Status DC Sodium Chloride 1,000 ml @ 150 mls/hr Q6H40M IV Last administered on 11:27; Start 04/26/17 at 15:46; Stop 04/27/17 at 15:45; Status DC Acetaminophen (Tylenol) 500 mg PRN Q6HRS PRN PO MILD PAIN / TEMP; Start at 23:30 Cetirizine HCl (ZyrTEC) 5 mg DAILY PO Last administered on 04/29/17 08:28; Start 04/27/17 at 09:00 Donepezil HCl (Aricept) 5 mg QHS PO ; Start 04/27/17 at 21:00 Ferrous Sulfate (Feosol) 325 mg DAILY PO Last administered on 04/29/17 08:28; Start 04/27/17 at 09:00 Fish Oil (Fish Oil) 1,000 mg DAILY PO Last administered on 04/29/17 08:28; Start 04/27/17 at 09:00 Pantoprazole Sodium (Protonix) 40 mg BIDAC PO Last administered on 04/29/17 07 :56; Start 04/27/17 at 07:30 Potassium Chloride (Klor-Con) 20 meq BID PO Last administered on 04/28/17 08: 56; Start 04/27/17 at 09:00; Stop 04/30/17 at 09:00 Simvastatin (Zocor) 20 mg QHS PO ; Start 04/27/17 at 21:00; Stop 04/29/17 at 07: 23; Status DC Spironolactone (Aldactone) 25 mg DAILY PO Last administered on 04/29/17 09:34 ; Start 04/27/17 at 09:00 Non-Formulary Medication 2 puff QID PRN INH WHEEZING; Start 04/26/17 at 23:30; Status UNV Cholestyramine Resin (Questran Light) 4 gm BID PO Last administered on 08:55; Start 04/27/17 at 09:00; Stop 04/29/17 at 07:23; Status DC Fluticasone Propionate (Flonase) 2 spray DAILY NS Last administered on 08:30; Start 04/27/17 at 09:00 Multivitamins (Thera M Plus) 1 tab DAILY PO Last administered on 04/29/17 08: 28; Start 04/27/17 at 09:00 Enoxaparin Sodium (Lovenox 40mg Syringe) 40 mg QHS SQ ; Start 04/27/17 at 21:00 ; Stop 04/28/17 at 07:44; Status DC Albuterol Sulfate (Ventolin Neb Soln) 2.5 mg PRN Q6HRS PRN NEB SHORTNESS OF BREATH; Start 04/26/17 at 23:45 Potassium Chloride (Klor-Con) 40 meq 1X ONCE PO Last administered on 19:47; Start 04/27/17 at 18:15; Stop 04/27/17 at 18:16; Status DC Potassium Chloride (Klor-Con) 20 meq 1X ONCE PO ; Start 04/27/17 at 20:15; Stop 04/27/17 at 20:16; Status DC Loperamide HCl (Imodium) 2 mg PRN QID PRN PO DIARRHEA; Start 04/28/17 at 07:45 Oxycodone HCl (OxyCONTIN) 20 mg Q12HR PO ; Start 04/28/17 at 09:00; Stop at 07:23; Status DC Potassium Chloride (Klor-Con) 20 meq 1X ONCE PO Last administered on 08:56; Start 04/28/17 at 09:00; Stop 04/28/17 at 09:01; Status DC Potassium Chloride (Klor-Con) 20 meq 1X ONCE PO ; Start 04/28/17 at 21:00; Stop 04/28/17 at 21:01; Status DC Potassium Chloride (Klor-Con) 40 meq 1X ONCE PO Last administered on 07:58; Start 04/29/17 at 07:30; Stop 04/29/17 at 07:31; Status DC Potassium Chloride (Klor-Con) 40 meq 1X ONCE PO Last administered on 09:33; Start 04/29/17 at 09:30; Stop 04/29/17 at 09:31; Status DC Cholestyramine Resin (Questran Light) 4 gm BID92 PO Last administered on 08:28; Start 04/29/17 at 09:00 Potassium Chloride (Klor-Con) 20 meq BID92 PO ; Start 04/30/17 at 09:00; Stop at 11:30 Simvastatin (Zocor) 20 mg DAILY@1800 PO ; Start 04/29/17 at 18:00 Oxycodone HCl (Roxicodone) 5 mg PRN Q6HRS PRN PO PAIN; Start 04/29/17 at 07:30 Potassium Chloride (Klor-Con) 20 meq TIDAFTMEAL PO ; Start 04/29/17 at 13:00 Active Scripts Active Ferrous Sulfate 325 Mg Tablet 1 Tab PO DAILY Questran Packet (Cholestyramine (With Sugar)) 4 Gm Powd.pack 4 Gm PO BID Pantoprazole Sodium 40 Mg Tablet.dr 40 Mg PO BIDAC Mapap (Acetaminophen) 500 Mg Tablet 500 Mg PO PRN Q6HRS PRN Reported Anti-Diarrhea (Loperamide Hcl) 2 Mg Tablet 2 Mg PO PRN PRN Cetirizine Hcl 10 Mg Tablet 5 Mg PO DAILY Aricept (Donepezil Hcl) 5 Mg Tablet 1 Tab PO QHS Ventolin Hfa Inhaler (Albuterol Sulfate) 18 Gm Hfa.aer.ad 2 Puff INH QID PRN Flonase Allergy Relief (Fluticasone Propionate) 9.9 Ml [place].susp 2 Sprays NS DAILY Simvastatin 20 Mg Tablet 1 Tab PO QHS Spironolactone 25 Mg Tablet 1 Tab PO DAILY Klor-Con M20 (Potassium Chloride) 20 Meq Tab.er.prt 1 Tab PO BID Fish Oil 1,000 Mg Capsule ([place]-3 Fatty Acids/Fish Oil) 1 Each Capsule 1 Each PO DAILY Centrum Multivitamin Tab Chew (Folic Acid/Mv,Fe,Other Min) 1 Each Tab.chew 1 Each PO DAILY Oxycontin (Oxycodone HCl) 20 Mg Tab.er.12h 1 Tab PO Q12HR Vitals/I & O Vital Sign - Last 24 Hours 04/28/17 04/28/17 04/28/17 04/28/17 11:00 15:00 19:00 20:00 Temp 96.6 98.0 98.0 96.6 98.0 98.0 Pulse 85 69 70 Resp 16 18 18 B/P (MAP) 107/54 (71) 102/44 (63) 92/44 (60) Pulse Ox 97 96 97 O2 Delivery Room Air Room Air Room Air Room Air 04/28/17 04/29/17 04/29/17 04/29/17 23:00 03:20 07:00 08:00 Temp 98.1 98.0 97.9 98.1 98.0 97.9 Pulse 65 67 67 Resp 18 18 16 B/P (MAP) 104/45 (64) 92/45 (61) 114/57 (76) Pulse Ox 96 97 97 O2 Delivery Room Air Room Air Room Air Room Air Intake and Output 04/28/17 04/28/17 04/29/17 15:00 23:00 07:00 Intake Total 660 ml 240 ml 175 ml Balance 660 ml 240 ml 175 ml Nutrition Consultation Dietary Evaluation: Recommendations by RD: Protein supplementation Comments: vanilla boost pudding bid Expected Outcomes/Goals: to meet > 75% est nutr needs Interpretation of weight loss: >5% in 1 month Malnutrition Findings: Body Fat Depletion (Non Severe: Mild Depletion Weight Status: Appropriate NEPTALI VICK MD Apr 29, 2017 10:38
[2017-04-29 11:00] VITALS: BP 112/68
--- NOTE | 2017-04-29 12:42 | PDOC ---
Subjective: Subjective: No complaints except doesn't really like the food. Objective: Vital Signs: Vital Signs Date Time Temp Pulse Resp B/P (MAP) Pulse Ox O2 Delivery O2 Flow Rate FiO2 04/29/17 11:00 98.1 73 16 112/68 (83) 97 Room Air 98.1 Labs: Laboratory Tests Test 04/29/17 03:02 White Blood Count 4.9 x10^3/uL Red Blood Count 3.94 x10^6/uL Hemoglobin 10.5 g/dL Hematocrit 32.4 % Mean Corpuscular Volume 82 fL Mean Corpuscular Hemoglobin 27 pg Mean Corpuscular Hemoglobin Concent 33 g/dL Red Cell Distribution Width 22.5 % Platelet Count 141 x10^3/uL Neutrophils (%) (Auto) 59 % Lymphocytes (%) (Auto) 31 % Monocytes (%) (Auto) 7 % Eosinophils (%) (Auto) 2 % Basophils (%) (Auto) 0 % Neutrophils # (Auto) 2.9 x10^3uL Lymphocytes # (Auto) 1.5 x10^3/uL Monocytes # (Auto) 0.4 x10^3/uL Eosinophils # (Auto) 0.1 x10^3/uL Basophils # (Auto) 0.0 x10^3/uL Sodium Level 145 mmol/L Potassium Level 2.8 mmol/L Chloride Level 110 mmol/L Carbon Dioxide Level 25 mmol/L Anion Gap 10 Blood Urea Nitrogen 12 mg/dL Creatinine 0.6 mg/dL Estimated GFR (Cockcroft-Gault) 127.4 Glucose Level 78 mg/dL Calcium Level 8.0 mg/dL Magnesium Level 1.8 mg/dL PE: GEN: NAD, up to chair ABD: soft, non-tender NEURO/PSYCH: A & O 3, flat A/P: Abdominal pain - if ever had, seems resolved -note cholelithiasis, seems asymptomatic Chronic anemia - stable -recent EGD and colonoscopy, suspect SB angiodysplasiae -on PPI and iron Chronic diarrhea -s table -on Imodium and cholestyramine -- Continue same per GI. AMADOU ROSE Apr 29, 2017 12:42
[2017-04-29 15:00] VITALS: BP 137/70
[2017-04-29] MEDS: SIMVASTATIN 20 MG TABLET PO SCH (17:31)
[2017-04-29] MEDS: DONEPEZIL HCL 5 MG TABLET. PO SCH (19:26)
[2017-04-29 19:59] VITALS: BP 98/47
[2017-04-29 22:33] VITALS: BP 97/47
[2017-04-30 03:46] VITALS: BP 136/75
[2017-04-30 04:42] LABS: BASO % 1 % (0-3); EOS % 2 % (0-3); HEMATOCRIT 33.2 % (39.0-53.0); HEMOGLOBIN 10.5 g/dL (13.0-17.5); LYMPH # 1.8 x10^3/uL (1.0-4.8); LYMPH % 30 % (24-48); MEAN CORPUSCULAR HEMOGLOBIN 27 pg (25-35); MEAN CORPUSCULAR HGB CONC 32 g/dL (31-37); MEAN CORPUSCULAR VOLUME 84 fL (79-100); MONO % 8 % (0-9); NEUT % 59 % (31-73); PLATELET COUNT 138 x10^3/uL (140-400); RED BLOOD COUNT 3.93 x10^6/uL (4.30-5.70); RED CELL DISTRIBUTION WIDTH 22.9 % (11.5-14.5); WHITE BLOOD COUNT 5.9 x10^3/uL (4.0-11.0)
[2017-04-30 04:54] LABS: CREATININE 0.7 mg/dL (0.7-1.3); GFR 106.7
[2017-04-30 07:00] VITALS: BP 128/70
[2017-04-30] MEDS: CHOLESTYRAMINE/ASPARTAME 4 GM PACKET PO SCH ×2 (08:58→14:00)
[2017-04-30] MEDS: MULTIVITAMIN with MINERAL TABLET. PO SCH (08:58)
[2017-04-30] MEDS: SPIRONOLACTONE 25 MG TABLET PO SCH (08:58)
[2017-04-30] MEDS: PANTOPRAZOLE 40 MG TABLET.DR. PO SCH ×2 (08:58→16:05)
[2017-04-30] MEDS: OMEGA-3 FATTY ACIDS/FISH OIL 1,000 MG CAPSULE. PO SCH (08:59)
[2017-04-30] MEDS: CETIRIZINE HCL 10 MG TABLET. PO SCH (08:59)
[2017-04-30] MEDS: POTASSIUM CHLORIDE 20 MEQ TABLET.ER. PO SCH ×3 (08:59→16:05)
[2017-04-30] MEDS ORDERED: POTASSIUM CHLORIDE 20 MEQ TABLET.ER. PO SCH (09:00)
[2017-04-30] MEDS: FERROUS SULFATE 325 MG TABLET. PO SCH (09:00)
[2017-04-30] MEDS: FLUTICASONE 50MCG/NASAL SPRAY 16GM BOTTLE. NS SCH (09:00)
--- NOTE | 2017-04-30 09:06 | PDOC ---
PROGRESS NOTES Subjective Subjective No new complaints. Objective Objective Vital Signs Date Time Temp Pulse Resp B/P (MAP) Pulse Ox O2 Delivery O2 Flow Rate FiO2 04/30/17 07:00 97.8 72 20 128/70 (89) 98 Room Air 97.8 Intake and Output 04/30/17 07:00 Intake Total 1850 ml Output Total 725 ml Balance 1125 ml Intake Oral 1850 ml Output Urine Total 725 ml # Voids 4 # Bowel Movements 2 Physical Exam Physical Exam He is comfortable supine in bed and he remains independent with his mobility. Assessment Assessment Problems Medical Problems: (1) Severe dehydration Status: Acute Plan Plan of Care Waiting for transfer to assisted living facility when medically stable. Comment Review of Relevant I have reviewed the following items kathy (where applicable) has been applied. Labs Laboratory Tests Test 04/28/17 10:55 04/29/17 03:02 04/30/17 03:30 Stool Occult Blood Negative (NEG) White Blood Count 4.9 x10^3/uL (4.0-11.0) 5.9 x10^3/uL (4.0-11.0) Red Blood Count 3.94 x10^6/uL (4.30-5.70) 3.93 x10^6/uL (4.30-5.70) Hemoglobin 10.5 g/dL (13.0-17.5) 10.5 g/dL (13.0-17.5) Hematocrit 32.4 % (39.0-53.0) 33.2 % (39.0-53.0) Mean Corpuscular Volume 82 fL (79-100) 84 fL (79-100) Mean Corpuscular Hemoglobin 27 pg (25-35) 27 pg (25-35) Mean Corpuscular Hemoglobin Concent 33 g/dL (31-37) 32 g/dL (31-37) Red Cell Distribution Width 22.5 % (11.5-14.5) 22.9 % (11.5-14.5) Platelet Count 141 x10^3/uL (140-400) 138 x10^3/uL (140-400) Neutrophils (%) (Auto) 59 % (31-73) 59 % (31-73) Lymphocytes (%) (Auto) 31 % (24-48) 30 % (24-48) Monocytes (%) (Auto) 7 % (0-9) 8 % (0-9) Eosinophils (%) (Auto) 2 % (0-3) 2 % (0-3) Basophils (%) (Auto) 0 % (0-3) 1 % (0-3) Neutrophils # (Auto) 2.9 x10^3uL (1.8-7.7) 3.5 x10^3uL (1.8-7.7) Lymphocytes # (Auto) 1.5 x10^3/uL (1.0-4.8) 1.8 x10^3/uL (1.0-4.8) Monocytes # (Auto) 0.4 x10^3/uL (0.0-1.1) 0.4 x10^3/uL (0.0-1.1) Eosinophils # (Auto) 0.1 x10^3/uL (0.0-0.7) 0.1 x10^3/uL (0.0-0.7) Basophils # (Auto) 0.0 x10^3/uL (0.0-0.2) 0.0 x10^3/uL (0.0-0.2) Sodium Level 145 mmol/L (136-145) 143 mmol/L (136-145) Potassium Level 2.8 mmol/L (3.5-5.1) 4.0 mmol/L (3.5-5.1) Chloride Level 110 mmol/L (98-107) 112 mmol/L (98-107) Carbon Dioxide Level 25 mmol/L (21-32) 22 mmol/L (21-32) Anion Gap 10 (6-14) 9 (6-14) Blood Urea Nitrogen 12 mg/dL (8-26) 14 mg/dL (8-26) Creatinine 0.6 mg/dL (0.7-1.3) 0.7 mg/dL (0.7-1.3) Estimated GFR (Cockcroft-Gault) 127.4 106.7 Glucose Level 78 mg/dL (70-99) 85 mg/dL (70-99) Calcium Level 8.0 mg/dL (8.5-10.1) 8.0 mg/dL (8.5-10.1) Magnesium Level 1.8 mg/dL (1.8-2.4) Laboratory Tests Test 04/30/17 03:30 White Blood Count 5.9 x10^3/uL (4.0-11.0) Red Blood Count 3.93 x10^6/uL (4.30-5.70) Hemoglobin 10.5 g/dL (13.0-17.5) Hematocrit 33.2 % (39.0-53.0) Mean Corpuscular Volume 84 fL (79-100) Mean Corpuscular Hemoglobin 27 pg (25-35) Mean Corpuscular Hemoglobin Concent 32 g/dL (31-37) Red Cell Distribution Width 22.9 % (11.5-14.5) Platelet Count 138 x10^3/uL (140-400) Neutrophils (%) (Auto) 59 % (31-73) Lymphocytes (%) (Auto) 30 % (24-48) Monocytes (%) (Auto) 8 % (0-9) Eosinophils (%) (Auto) 2 % (0-3) Basophils (%) (Auto) 1 % (0-3) Neutrophils # (Auto) 3.5 x10^3uL (1.8-7.7) Lymphocytes # (Auto) 1.8 x10^3/uL (1.0-4.8) Monocytes # (Auto) 0.4 x10^3/uL (0.0-1.1) Eosinophils # (Auto) 0.1 x10^3/uL (0.0-0.7) Basophils # (Auto) 0.0 x10^3/uL (0.0-0.2) Sodium Level 143 mmol/L (136-145) Potassium Level 4.0 mmol/L (3.5-5.1) Chloride Level 112 mmol/L (98-107) Carbon Dioxide Level 22 mmol/L (21-32) Anion Gap 9 (6-14) Blood Urea Nitrogen 14 mg/dL (8-26) Creatinine 0.7 mg/dL (0.7-1.3) Estimated GFR (Cockcroft-Gault) 106.7 Glucose Level 85 mg/dL (70-99) Calcium Level 8.0 mg/dL (8.5-10.1) Medications Current Medications Sodium Chloride 500 ml @ 500 mls/hr 1X ONCE IV Last administered on 15:00; Start 04/26/17 at 13:15; Stop 04/26/17 at 14:14; Status DC Iohexol (Omnipaque 300 Mg/ml) 75 ml 1X ONCE IV Last administered on 04/26/17 15:18; Start 04/26/17 at 13:30; Stop 04/26/17 at 13:31; Status DC Info (Do NOT chart on this entry -- for MONITORING) 1 each PRN DAILY PRN MC SEE COMMENTS; Start 04/26/17 at 13:45; Stop 04/28/17 at 13:44; Status DC Sodium Chloride 1,000 ml @ 150 mls/hr Q6H40M IV Last administered on 11:27; Start 04/26/17 at 15:46; Stop 04/27/17 at 15:45; Status DC Acetaminophen (Tylenol) 500 mg PRN Q6HRS PRN PO MILD PAIN / TEMP; Start at 23:30 Cetirizine HCl (ZyrTEC) 5 mg DAILY PO Last administered on 04/30/17 08:59; Start 04/27/17 at 09:00 Donepezil HCl (Aricept) 5 mg QHS PO Last administered on 04/29/17 19:26; Start 04/27/17 at 21:00 Ferrous Sulfate (Feosol) 325 mg DAILY PO Last administered on 04/30/17 09:00; Start 04/27/17 at 09:00 Fish Oil (Fish Oil) 1,000 mg DAILY PO Last administered on 04/30/17 08:59; Start 04/27/17 at 09:00 Pantoprazole Sodium (Protonix) 40 mg BIDAC PO Last administered on 04/30/17 08 :58; Start 04/27/17 at 07:30 Potassium Chloride (Klor-Con) 20 meq BID PO Last administered on 04/28/17 08: 56; Start 04/27/17 at 09:00; Stop 04/29/17 at 12:38; Status DC Simvastatin (Zocor) 20 mg QHS PO ; Start 04/27/17 at 21:00; Stop 04/29/17 at 07: 23; Status DC Spironolactone (Aldactone) 25 mg DAILY PO Last administered on 04/30/17 08:58 ; Start 04/27/17 at 09:00 Non-Formulary Medication 2 puff QID PRN INH WHEEZING; Start 04/26/17 at 23:30; Status UNV Cholestyramine Resin (Questran Light) 4 gm BID PO Last administered on 08:55; Start 04/27/17 at 09:00; Stop 04/29/17 at 07:23; Status DC Fluticasone Propionate (Flonase) 2 spray DAILY NS Last administered on 08:30; Start 04/27/17 at 09:00 Multivitamins (Thera M Plus) 1 tab DAILY PO Last administered on 04/30/17 08: 58; Start 04/27/17 at 09:00 Enoxaparin Sodium (Lovenox 40mg Syringe) 40 mg QHS SQ ; Start 04/27/17 at 21:00 ; Stop 04/28/17 at 07:44; Status DC Albuterol Sulfate (Ventolin Neb Soln) 2.5 mg PRN Q6HRS PRN NEB SHORTNESS OF BREATH; Start 04/26/17 at 23:45 Potassium Chloride (Klor-Con) 40 meq 1X ONCE PO Last administered on 19:47; Start 04/27/17 at 18:15; Stop 04/27/17 at 18:16; Status DC Potassium Chloride (Klor-Con) 20 meq 1X ONCE PO ; Start 04/27/17 at 20:15; Stop 04/27/17 at 20:16; Status DC Loperamide HCl (Imodium) 2 mg PRN QID PRN PO DIARRHEA; Start 04/28/17 at 07:45 Oxycodone HCl (OxyCONTIN) 20 mg Q12HR PO ; Start 04/28/17 at 09:00; Stop at 07:23; Status DC Potassium Chloride (Klor-Con) 20 meq 1X ONCE PO Last administered on 08:56; Start 04/28/17 at 09:00; Stop 04/28/17 at 09:01; Status DC Potassium Chloride (Klor-Con) 20 meq 1X ONCE PO ; Start 04/28/17 at 21:00; Stop 04/28/17 at 21:01; Status DC Potassium Chloride (Klor-Con) 40 meq 1X ONCE PO Last administered on 07:58; Start 04/29/17 at 07:30; Stop 04/29/17 at 07:31; Status DC Potassium Chloride (Klor-Con) 40 meq 1X ONCE PO Last administered on 09:33; Start 04/29/17 at 09:30; Stop 04/29/17 at 09:31; Status DC Cholestyramine Resin (Questran Light) 4 gm BID92 PO Last administered on 08:58; Start 04/29/17 at 09:00 Potassium Chloride (Klor-Con) 20 meq BID92 PO ; Start 04/30/17 at 09:00; Stop at 09:00; Status DC Simvastatin (Zocor) 20 mg DAILY@1800 PO Last administered on 04/29/17 17:31; Start 04/29/17 at 18:00 Oxycodone HCl (Roxicodone) 5 mg PRN Q6HRS PRN PO MODERATE - SEVERE PAIN; Start 04/29/17 at 07:30 Potassium Chloride (Klor-Con) 20 meq TIDAFTMEAL PO Last administered on 08:59; Start 04/29/17 at 13:00 Active Scripts Active Ferrous Sulfate 325 Mg Tablet 1 Tab PO DAILY Questran Packet (Cholestyramine (With Sugar)) 4 Gm Powd.pack 4 Gm PO BID Pantoprazole Sodium 40 Mg Tablet.dr 40 Mg PO BIDAC Mapap (Acetaminophen) 500 Mg Tablet 500 Mg PO PRN Q6HRS PRN Reported Anti-Diarrhea (Loperamide Hcl) 2 Mg Tablet 2 Mg PO PRN PRN Cetirizine Hcl 10 Mg Tablet 5 Mg PO DAILY Aricept (Donepezil Hcl) 5 Mg Tablet 1 Tab PO QHS Ventolin Hfa Inhaler (Albuterol Sulfate) 18 Gm Hfa.aer.ad 2 Puff INH QID PRN Flonase Allergy Relief (Fluticasone Propionate) 9.9 Ml [place].susp 2 Sprays NS DAILY Simvastatin 20 Mg Tablet 1 Tab PO QHS Spironolactone 25 Mg Tablet 1 Tab PO DAILY Klor-Con M20 (Potassium Chloride) 20 Meq Tab.er.prt 1 Tab PO BID Fish Oil 1,000 Mg Capsule ([place]-3 Fatty Acids/Fish Oil) 1 Each Capsule 1 Each PO DAILY Centrum Multivitamin Tab Chew (Folic Acid/Mv,Fe,Other Min) 1 Each Tab.chew 1 Each PO DAILY Oxycontin (Oxycodone HCl) 20 Mg Tab.er.12h 1 Tab PO Q12HR Vitals/I & O Vital Sign - Last 24 Hours 04/29/17 04/29/17 04/29/17 04/29/17 11:00 15:00 19:45 19:59 Temp 98.1 98.6 98.6 98.1 98.6 98.6 Pulse 73 68 89 Resp 16 18 18 B/P (MAP) 112/68 (83) 137/70 (92) 98/47 (64) Pulse Ox 97 99 97 O2 Delivery Room Air Room Air Room Air Room Air 04/29/17 04/30/17 04/30/17 22:33 03:46 07:00 Temp 97.7 98.8 97.8 97.7 98.8 97.8 Pulse 72 73 72 Resp 18 18 20 B/P (MAP) 97/47 (64) 136/75 (95) 128/70 (89) Pulse Ox 98 98 98 O2 Delivery Room Air Room Air Room Air Intake and Output 04/29/17 04/29/17 04/30/17 15:00 23:00 07:00 Intake Total 630 ml 1100 ml 120 ml Output Total 225 ml 500 ml Balance 630 ml 875 ml -380 ml Nutrition Consultation Dietary Evaluation: Recommendations by RD: Protein supplementation Comments: vanilla boost pudding bid Expected Outcomes/Goals: to meet > 75% est nutr needs Interpretation of weight loss: >5% in 1 month Malnutrition Findings: Body Fat Depletion (Non Severe: Mild Depletion Weight Status: Appropriate NEPTALI VICK MD Apr 30, 2017 09:06
[2017-04-30 11:00] VITALS: BP 114/72
--- NOTE | 2017-04-30 11:21 | PDOC3 ---
SEBASTIENErinCHIOMA DUNCAN PATIENT RESOURCE SPECIALIST 04/30/17 1121: IM DISCHARGE & PROGRESS NOTES Date of Admission Date of Admission Date of Admission: Apr 26, 2017 at 15:39 Date of Discharge Date of Discharge 04/30/17 Primary Diagnosis Primary Diagnosis 1. abdominal pain lower quads resolved etiology unclear 2. anemia CD with recent GIB 3. severe weakness and debility 4. cholelithiasis 5. 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 HTN 8. GERD 9. chronic LBP with radiculopathy, DJD, and hyphosis with h/o back surgery 10. thrombocytopenia not POA 11. 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 Procedures Procedures None Labs Labs Laboratory Tests Test 04/28/17 05:30 04/28/17 10:55 04/29/17 03:02 04/30/17 03:30 White Blood Count 4.4 x10^3/uL (4.0-11.0) 4.9 x10^3/uL (4.0-11.0) 5.9 x10^3/uL (4.0-11.0) Red Blood Count 3.65 x10^6/uL (4.30-5.70) 3.94 x10^6/uL (4.30-5.70) 3.93 x10^6/uL (4.30-5.70) Hemoglobin 9.6 g/dL (13.0-17.5) 10.5 g/dL (13.0-17.5) 10.5 g/dL (13.0-17.5) Hematocrit 30.2 % (39.0-53.0) 32.4 % (39.0-53.0) 33.2 % (39.0-53.0) Mean Corpuscular Volume 83 fL (79-100) 82 fL (79-100) 84 fL (79-100) Mean Corpuscular Hemoglobin 26 pg (25-35) 27 pg (25-35) 27 pg (25-35) Mean Corpuscular Hemoglobin Concent 32 g/dL (31-37) 33 g/dL (31-37) 32 g/dL (31-37) Red Cell Distribution Width 22.5 % (11.5-14.5) 22.5 % (11.5-14.5) 22.9 % (11.5-14.5) Platelet Count 118 x10^3/uL (140-400) 141 x10^3/uL (140-400) 138 x10^3/uL (140-400) Neutrophils (%) (Auto) 57 % (31-73) 59 % (31-73) 59 % (31-73) Lymphocytes (%) (Auto) 32 % (24-48) 31 % (24-48) 30 % (24-48) Monocytes (%) (Auto) 9 % (0-9) 7 % (0-9) 8 % (0-9) Eosinophils (%) (Auto) 2 % (0-3) 2 % (0-3) 2 % (0-3) Basophils (%) (Auto) 1 % (0-3) 0 % (0-3) 1 % (0-3) Neutrophils # (Auto) 2.5 x10^3uL (1.8-7.7) 2.9 x10^3uL (1.8-7.7) 3.5 x10^3uL (1.8-7.7) Lymphocytes # (Auto) 1.4 x10^3/uL (1.0-4.8) 1.5 x10^3/uL (1.0-4.8) 1.8 x10^3/uL (1.0-4.8) Monocytes # (Auto) 0.4 x10^3/uL (0.0-1.1) 0.4 x10^3/uL (0.0-1.1) 0.4 x10^3/uL (0.0-1.1) Eosinophils # (Auto) 0.1 x10^3/uL (0.0-0.7) 0.1 x10^3/uL (0.0-0.7) 0.1 x10^3/uL (0.0-0.7) Basophils # (Auto) 0.0 x10^3/uL (0.0-0.2) 0.0 x10^3/uL (0.0-0.2) 0.0 x10^3/uL (0.0-0.2) Sodium Level 145 mmol/L (136-145) 145 mmol/L (136-145) 143 mmol/L (136-145) Potassium Level 3.0 mmol/L (3.5-5.1) 2.8 mmol/L (3.5-5.1) 4.0 mmol/L (3.5-5.1) Chloride Level 112 mmol/L (98-107) 110 mmol/L (98-107) 112 mmol/L (98-107) Carbon Dioxide Level 25 mmol/L (21-32) 25 mmol/L (21-32) 22 mmol/L (21-32) Anion Gap 8 (6-14) 10 (6-14) 9 (6-14) Blood Urea Nitrogen 12 mg/dL (8-26) 12 mg/dL (8-26) 14 mg/dL (8-26) Creatinine 0.6 mg/dL (0.7-1.3) 0.6 mg/dL (0.7-1.3) 0.7 mg/dL (0.7-1.3) Estimated GFR (Cockcroft-Gault) 127.4 127.4 106.7 Glucose Level 85 mg/dL (70-99) 78 mg/dL (70-99) 85 mg/dL (70-99) Calcium Level 8.0 mg/dL (8.5-10.1) 8.0 mg/dL (8.5-10.1) 8.0 mg/dL (8.5-10.1) Stool Occult Blood Negative (NEG) Magnesium Level 1.8 mg/dL (1.8-2.4) Medications Medications Medications reviewed and reconciled for discharge. Brief hospital course Brief hospital course This 86 year old male who presented with PLAN: abdominal pain CT abd/pelvis unremarkable 04/27/17 h/o abdominal pain preceding acute blood loss resolved Anemia/ thrombocytopenia h/o recent GIB February 2017 Admit Hgb 12.1 04/27 10.4 04/28 9.6 04/29 10.5 04/30 10.5 Plt 150 118 141 guaic stool DC lovenox 04/28 Fe replacement for chronic blood loss Lovenox DC, Hgb stabilizing and platelet improving CKD II mild dehydration IVF NS 1500cc/hr at admit, DC 04/27 Admit Na 147 04/30 143 K 4.1 04/28 4.0 KCL 04/27 40 meq x 1, 20 meq x 1 hypokalemia replace with KCL additional 20 meq x 2 with am and noon scheduled dose. check Mg 04/29 KCL 80 meq bid today per Dr. Manuel Will resume home dose potassium 04/30 and administer during day and will eval all night meds to change to evening. diarrhea chronic, non infectious resume loperamide prn qid continue Questran 4gm qid resolved weak/debility PT OT eval and treat DVT/GI prophylaxis Lovenox DC due to GIB history SCD/KRISH PPI No h/o AFIB For more details regarding the past history, family history, social history, surgical history and other details, please refer to History and Physical. He will be discharged back to [facility] and seen in the office in 3- 4 days. Subjective diarrhea improved, no back or abdominal pain Staff reports refuses evening medications but will take meds during day. Did not take potassium last night. Also no c/o back pain and sleepy on oxycontin. Objective alert, appropriate Vitals Vital Signs Date Time Temp Pulse Resp B/P (MAP) Pulse Ox O2 Delivery O2 Flow Rate FiO2 04/30/17 08:00 Room Air 04/30/17 07:00 97.8 72 20 128/70 (89) 98 97.8 Physical Exam General appearance - alert, chronically ill appearing, thin and in no distress Mental Status - alert, oriented to person, place, and time, affect appropriate to mood Head - normal Chest - clear to auscultation, no wheezes, rales or rhonchi, symmetric air entry Heart - S1 and S2 normal Abdomen - soft, nontender, nondistended, no masses or organomegaly Neurological - no acute focal neurological deficits noted. Musculoskeletal - no muscular tenderness noted Extremities - no pedal edema Skin - warm and dry Medications Medications reviewed. Allergy Allergies Coded Allergies Type Severity Reaction Last Updated Verified No Known Drug Allergies 02/10/17 No Follow up in3- 5 days. Disposition: Home health services Comments Discharge Management - 35 minutes. For other details please refer to discharge instructions KASANDRA CEDILLO MD 04/30/17 1155: IM DISCHARGE & PROGRESS NOTES Brief hospital course Brief hospital course Discharge on KCL 20 meq tid and Spironolactone 25 mg daily. see in office in 5 days and follow up K level. Discharge with [facility]. He will need social media content manager as he wants to move to a different facility. The patient was seen and examined by me. Chart reviewed and plan of care formulated. Discussed with, reviewed and agree with BAKER HEAD's notes, plan of care and orders with modifications as necessary. Discharge Management - 35 minutes. CHIOMA CH APRN Apr 30, 2017 11:21 KASANDRA CEDILLO MD Apr 30, 2017 11:55
--- NOTE | 2017-04-30 11:24 | DISCH ---
DISCHARGE WITH HOME HEALTH DISCHARGE INFORMATION: Discharge Date: Apr 30, 2017 Final Diagnosis: Problems Medical Problems: (1) Severe dehydration Status: Acute Condition on Discharge: Stable HOME HEALTH: Face to Face: I certify this patient is under my care and that my nurse practitioner working with me, had a face to face encounter that meets the physician face to face encounter requirements with this patient on 04/30/17. Medical Condition(s): HTN Long-Term For: Assess/Skilled Observatio Physical Therapy For: Evalulation/Treatment Occupational Therapy For: Evaluation/Treatment FOLLOW-UP: Follow up with: Dr. Nuñez in 3-5 days TREATMENT/EQUIPMENT ORDERS Adaptive Equipment Issued: Wheelchair CERTIFICATION STATEMENT: Certification Statement: Certification Statement: Based on the above finding, I certify that this patient is confined to the home and needs intermittent senior living care, physical therapy and/or speech therapy, or continues to need occupational therapy.~ This patient is under my care, and I have initiated the establishment of the plan of care.~ This patient will be followed by myself or a community physician who will periodically review the plan of care. CHIOMA CH APRN Apr 30, 2017 11:24
[2017-04-30] MEDS ORDERED: OXYC5TAB PO (11:26)
[2017-04-30] MEDS ORDERED: POTA20TA4 PO (11:26)
[2017-04-30 15:00] VITALS: BP 110/70
[2017-04-30] MEDS: SIMVASTATIN 20 MG TABLET PO SCH (16:05)
== END 2017-04-30 17:51 | disposition home health service (06) | DRG 445 ==
LOC: ER 12:13 → 5 NORTH 15:39
PROVIDERS: ADMIT Internal Medicine; ATTEND Internal Medicine
DX: K80.20 Calculus of gallbladder without cholecystitis without obstruction (principal); E44.0 Moderate protein-calorie malnutrition; K57.30 Diverticulosis of large intestine without perforation or abscess without bleeding; E78.5 Hyperlipidemia, unspecified; E87.6 Hypokalemia; G89.29 Other chronic pain; I27.2 Other secondary pulmonary hypertension; I48.91 Unspecified atrial fibrillation; K21.0 Gastro-esophageal reflux disease with esophagitis; D63.8 Anemia in other chronic diseases classified elsewhere; K59.00 Constipation, unspecified; M19.90 Unspecified osteoarthritis, unspecified site; M54.5 Low back pain; N18.2 Chronic kidney disease, stage 2 (mild); K44.9 Diaphragmatic hernia without obstruction or gangrene; K52.9 Noninfective gastroenteritis and colitis, unspecified; E86.0 Dehydration; D69.6 Thrombocytopenia, unspecified; M48.00 Spinal stenosis, site unspecified; I12.9 Hypertensive chronic kidney disease with stage 1 through stage 4 chronic kidney disease, or unspecified chronic kidney disease; J30.9 Allergic rhinitis, unspecified; K64.9 Unspecified hemorrhoids; M51.16 Intervertebral disc disorders with radiculopathy, lumbar region; R32 Unspecified urinary incontinence; I83.90 Asymptomatic varicose veins of unspecified lower extremity; Z87.891 Personal history of nicotine dependence; Z85.828 Personal history of other malignant neoplasm of skin; Z79.899 Other long term (current) drug therapy; Z79.1 Long term (current) use of non-steroidal anti-inflammatories (NSAID); Z79.2 Long term (current) use of antibiotics; Z86.718 Personal history of other venous thrombosis and embolism; Z68.23 Body mass index [BMI] 23.0-23.9, adult
CPT/HCPCS: 36415; 71010; 74177; 80048; 80053; 81001; 82274; 83690; 83735; 84443; 84484; 85007; 85027; 87641; 93005; 94250; 94760; 96360; A6539; J7030; J7040; Q9967; 97530; 99285-25